=== PATIENT | female | born 1955 | race Caucasian/White ===

== ENCOUNTER → 2022-02-19 | Outpatient (CLI) | payer MEDICARE, OTHER ==
--- NOTE | 2022-02-19 19:58 | BD ---
EXAMINATION TYPE: Axial Bone Density DATE OF EXAM: 02/19/2022 COMPARISON: NONE CLINICAL HISTORY: 67 years year old Female. ICD-10 CODE: M85.88 DISRD BONE DENS Height: 63 Weight: 223.9 FRAX RISK QUESTIONS: Alcohol (3 or more units per day): NO Family History (Parent hip fracture): NO Glucocorticoids (More than 3mos): NO History of Fracture in Adulthood: FINGER Secondary Osteoporosis: 1. Type 1 Diabetes: NO 2. Hyperthyroidism: NO 3. Menopause before 45: YES 4. Malnutrition: NO 5. Chronic liver disease: NO Rheumatoid Arthritis: NO Current Tobacco Use: NO RISK FACTORS HISTORY OF: Hip Fracture (Right/Left): NO Spine Fracture: NO History of Wrist Fracture: NO Surgery to Spine/Hip(right/left)/Wrist (right/left): NO Family History of Osteoporosis: NO Active: NO Diet low in dairy products/other sources of calcium: YES Postmenopausal woman: YES Take estrogen and/or progesterone medications: NO Lost more than 2 inches in height since high school: NO Frequent falls: NO Poor Health: YES Hyperparathyroidism: NO Adrenal Insufficiency: NO MEDICATIONS: Prednisone or other steroids: NO Thyroid Medications: SYNTHROID How Long: PAST MONTH Osteoporosis Medications: NO Additional Medications: DIABETIC MEDS, VIT D EXAM MEASUREMENTS: Bone mineral densitometry was performed using the [email or web address] System. Bone mineral density as measured about the Lumbar spine is: ----- L1-L4(G/cm2): 1.361 T Score Values are as follows: ----- L1: 1.3 ----- L2: 1.2 ----- L3: 1.9 ----- L4: 1.5 ----- L1-L4: 1.5 BASELINE STUDY Bone mineral density about the R hip (g/cm2): 0.711 Bone mineral density about the L hip (g/cm2): 0.741 T Score values are as follows: -----R Neck: -2.3 -----L Neck: -2.1 -----R Total: -0.8 -----L Total: -0.1 BASELINE STUDY FRAX%s: The graph provided illustrates a 18.7% chance for a major osteoporotic fx and a 3.6% chance f or the hips probability for fx in 10 years time. IMPRESSION: Osteopenia (T Score between -2.5 and -1). There is slightly increased risk of fracture and the patient may be considered for treatment. Re-Screen 2-5 years. NOTE: T-SCORE=SD OF THE YOUNG ADULT MEAN.
--- NOTE | 2022-02-20 08:54 | MM ---
Reason for Exam: Screening (asymptomatic). Baseline mammogram. Patient History: Menarche at age 14. First Full-Term at age 22. Postmenopausal. Risk Values: Ariana 5 year model risk: 1.4%. NCI Lifetime model risk: 4.8%. Prior Study Comparison: Patient's first Mammogram. No prior studies available for comparison. Tissue Density: There are scattered fibroglandular densities. Findings: Analyzed By CAD. There are benign-appearing round and vascular calcifications bilaterally identified. There is no suspicious group of microcalcifications or suspicious mass in either breast. Overall Assessment: Benign, BI-RAD 2 Management: Screening Mammogram of both breasts in 1 year. A clinical breast exam by your physician is recommended on an annual basis and results should be correlated with mammographic findings. Electronically signed and approved by: Partha Sanchez M.D.
== END | disposition home or self-care (01) ==
LOC: RADMAMWWP 15:09
PROVIDERS: ATTEND Internal Medicine
DX: Z12.31 Encounter for screening mammogram for malignant neoplasm of breast (principal); M85.88 Other specified disorders of bone density and structure, other site; N95.1 Menopausal and female climacteric states
CPT/HCPCS: 77063; 77067; 77080

== ENCOUNTER 2022-03-09 10:34 | Day surgery (SDC) | payer MEDICARE, OTHER ==
[2022-03-07 15:19] VITALS: BMI 37.8
[~2022-03-09 10:34] MED LIST: LACTATED RINGERS 1,000 ML IV SCH; MOXIFLOXACIN HCL 0.5% DROPS 3 ML BTL OP PRN; TETRACAINE 0.5% OPHTH (PF) DROPS 4 ML BTL OP PRN; TIMOLOL 0.5% OPHTH DROPS 5 ML BTL OP PRN
[2022-03-09] MEDS: CYCLOPENTOLATE 1% OPHTH SOLN 2 ML BTL OP PRN ×3 (11:26→11:44)
[2022-03-09] MEDS: PHENYLEPHRINE 2.5% OPHTH DRP 2ML OP PRN ×3 (11:29→11:49)
[2022-03-09 11:34] VITALS: RESP 20; TEMP 97
[2022-03-09 11:50] LABS: Glucose,Whole Blood 94 mg/dL (70-110)
[2022-03-09] MEDS ORDERED: fentaNYL (PF) 50 MCG/ML 2 ML AMP ONE ×2 (12:34)
[2022-03-09] MEDS ORDERED: MIDAZOLAM 2 MG/2 ML VIAL ONE ×2 (12:34)
[2022-03-09] MEDS ORDERED: BALANCED SALT IRRIG SOLN COMB2 15 ML IRRIG.SOLN IRRIGATION ONE (12:35)
[2022-03-09] MEDS ORDERED: DUOVISC KIT (GREEN BOX) INTRAOCULA ONE (12:35)
[2022-03-09] MEDS ORDERED: EPINEPHrine (PF) 0.3 ML in BALANCED SALT IRRIG SOLN COMB2 500 ML IRRIGATION ONE (12:35)
[2022-03-09] MEDS ORDERED: LIDOCAINE 1% (PF) 10MG/ML VIAL MISCELLANE ONE (12:35)
--- NOTE | 2022-03-09 13:03 | P.OP ---
Date of Procedure: 03/09/22 Preoperative Diagnosis: NS & PSC Postoperative Diagnosis: same Procedure(s) Performed: PIOL< OD Implants: MX60E 21.00 Anesthesia: MAC Surgeon: David Street Pathology: none sent Condition: stable Disposition: same day Indications for Procedure: bluerry vision Operative Findings: no complications
[2022-03-09 13:25] VITALS: PULSE 56
[2022-03-09 13:37] VITALS: BP 190/88
--- NOTE | 2022-03-10 01:27 | OP ---
OPERATIVE REPORT PROCEDURES PERFORMED: Phacoemulsification of cataract and intraocular lens implant of the right eye. PREOPERATIVE DIAGNOSIS: Nuclear sclerosis and posterior subcapsular cataract. PREOPERATIVE DIAGNOSIS: Nuclear sclerosis and posterior subcapsular cataract. ESTIMATED BLOOD LOSS: Zero. SPECIMEN TAKEN: None. NARRATIVE: After obtaining the appropriate consent, the patient was brought to the operating room where the patient was placed under cardiac monitoring and prepped and draped in the usual sterile manner. At the 11 o'clock position, a 15-degree super sharp blade was used to create a paracentesis followed by instillation of 1% Xylocaine MPF 50:50 mix with BSS into the anterior chamber. This was followed by Duovisc viscoelastic to stabilize the anterior chamber. At the 9 o'clock position a self-sealing corneal flap incision was created using 2.8 mm wilbur keratome. A cystotome was used to initiate a continuous tear capsulorrhexis which was completed with the Utrata forceps. A Binkhorst cannula was used to hydrodissect the lens nucleus followed by hydrodelineation. Phacoemulsification of the lens was performed utilizing phacochop in 33.91 seconds at 21% power. The remaining cortical material was removed using the irrigation aspiration mode followed by additional 1% Xylocaine MPF into the anterior chamber followed by viscoelastic to stabilize the capsular bag. A Bausch and Lomb MX60E 21.0 diopters posterior chamber lens was placed into the capsular bag without difficulty. The remaining viscoelastic material was removed from the anterior chamber with the irrigation/aspiration. Balanced salt solution was used to normalize the intraocular pressure. The incision was checked for watertight integrity. The patient then received 2 drops of 0.5% timolol followed by 2 drops Vigamox, was lightly patched and shielded in the usual manner. There were no complications from the procedure. The patient tolerated the procedure well and was returned to recovery in good condition. MMODL / IJN: [id number] /
== END 2022-03-09 13:53 | disposition home or self-care (01) ==
LOC: OR 10:34
PROVIDERS: ATTEND Ophthalmology
DX: H25.11 Age-related nuclear cataract, right eye (principal); E11.9 Type 2 diabetes mellitus without complications; E07.9 Disorder of thyroid, unspecified; Z79.899 Other long term (current) drug therapy; Z79.84 Long term (current) use of oral hypoglycemic drugs; Z79.890 Hormone replacement therapy
CPT/HCPCS: 66984; C1780; J2250; J0171; J3010; J2001

== ENCOUNTER 2022-04-04 06:08 | Day surgery (SDC) | payer MEDICARE, OTHER ==
[~2022-04-04 06:08] MED LIST changes: -LACTATED RINGERS 1,000 ML IV SCH
[2022-04-04] MEDS ORDERED: LACTATED RINGERS 1,000 ML IV SCH (06:15)
[2022-04-04] MEDS ORDERED: LIDOCAINE 1% (10MG/ML) FOR IV START INTRADERMA PRN (06:15)
[2022-04-04] MEDS: CYCLOPENTOLATE 1% OPHTH SOLN 2 ML BTL OP PRN ×3 (06:47→06:59)
[2022-04-04] MEDS: PHENYLEPHRINE 2.5% OPHTH DRP 2ML OP PRN ×3 (06:50→07:02)
[2022-04-04 07:04] VITALS: RESP 16; TEMP 97.8
[2022-04-04 07:04] LABS: Glucose,Whole Blood 95 mg/dL (70-110)
[2022-04-04] MEDS ORDERED: MIDAZOLAM 2 MG/2 ML VIAL ONE (07:24)
[2022-04-04] MEDS ORDERED: fentaNYL (PF) 50 MCG/ML 2 ML AMP ONE (07:24)
[2022-04-04] MEDS ORDERED: EPINEPHrine (PF) 0.3 ML in BALANCED SALT IRRIG SOLN COMB2 500 ML IRRIGATION ONE (07:44)
[2022-04-04] MEDS ORDERED: BALANCED SALT IRRIG SOLN COMB2 15 ML IRRIG.SOLN INTRAOCULA ONE (07:50)
[2022-04-04] MEDS ORDERED: DUOVISC KIT (GREEN BOX) INTRAOCULA ONE (07:50)
[2022-04-04] MEDS ORDERED: LIDOCAINE 1% (PF) 10MG/ML VIAL MISCELLANE ONE (07:51)
--- NOTE | 2022-04-04 07:56 | P.OP ---
Date of Procedure: 04/04/22 Preoperative Diagnosis: NS & PSC Postoperative Diagnosis: ish Procedure(s) Performed: PIOL< OS Implants: MX60E 21.50 Anesthesia: MAC Surgeon: David Street Pathology: none sent Condition: stable Disposition: same day Indications for Procedure: blurry vision Operative Findings: no complications
[2022-04-04 08:20] VITALS: BP 156/74; PULSE 65
--- NOTE | 2022-04-05 09:38 | OP ---
OPERATIVE REPORT PROCEDURES PERFORMED: Phacoemulsification of cataract and intraocular lens implant of the left eye. PREOPERATIVE DIAGNOSES: Nuclear sclerosis and posterior subcapsular cataract. POSTOPERATIVE DIAGNOSES: Nuclear sclerosis and posterior subcapsular cataract. ESTIMATED BLOOD LOSS: Zero. SPECIMEN TAKEN: None. NARRATIVE: After obtaining the appropriate consent, the patient was brought to the operating room where the patient was placed under cardiac monitoring and prepped and draped in the usual sterile manner. At the 5 o'clock position, a 15-degree super sharp blade was used to create a paracentesis followed by instillation of 1% Xylocaine MPF 50:50 mix with BSS into the anterior chamber. This was followed by DuoVisc viscoelastic to stabilize the anterior chamber. At the 3 o'clock position a self-sealing corneal flap incision was created using 2.8 mm wilbur keratome. A cystotome was used to initiate a continuous tear capsulorrhexis which was completed with the Utrata forceps. A Binkhorst cannula was used to hydrodissect the lens nucleus followed by hydrodelineation. Phacoemulsification of the lens was performed utilizing phacochop in 32.84 seconds at 30% power. The remaining cortical material was removed using the irrigation aspiration mode followed by additional 1% Xylocaine MPF into the anterior chamber followed by viscoelastic to stabilize the capsular bag. A Bausch and Lomb MX60E 21.5 diopter posterior chamber lens was placed into the capsular bag without difficulty. The remaining viscoelastic material was removed from the anterior chamber with the irrigation/aspiration. Balanced salt solution was used to normalize the intraocular pressure. The incision was checked for watertight integrity. The patient then received 2 drops of 0.5% timolol followed by 2 drops Vigamox, was lightly patched and shielded in the usual manner. There were no complications from the procedure. The patient tolerated the procedure well and was returned to recovery in good condition. MMODL / IJN: [id number] /
== END 2022-04-04 08:38 | disposition home or self-care (01) ==
LOC: OR 06:08
PROVIDERS: ATTEND Ophthalmology
DX: H25.12 Age-related nuclear cataract, left eye (principal); H25.042 Posterior subcapsular polar age-related cataract, left eye; E11.9 Type 2 diabetes mellitus without complications; E07.9 Disorder of thyroid, unspecified; Z79.890 Hormone replacement therapy; Z79.84 Long term (current) use of oral hypoglycemic drugs
CPT/HCPCS: 66984; C1780; J2250; J0171; J3010; J2001

== ENCOUNTER → 2022-12-17 | Outpatient (CLI) | payer MEDICARE, OTHER ==
--- NOTE | 2022-12-17 23:08 | MR ---
EXAMINATION TYPE: MR brain wo/w con DATE OF EXAM: 12/17/2022 COMPARISON: NONE HISTORY: Memory loss, headaches TECHNIQUE: Multiplanar, multisequence images of the brain and brainstem is performed without and with IV contras t, utilizing 10 mL intravenous Gadavist . FINDINGS: Diffusion weighted images demonstrate no evidence of a recent infarct or other diffusion ab normality. There is mild to moderate ventricular and sulcal prominence. There are scattered foci of T2 hyperintensity seen throughout the superficial, deep, and periventricular white matter bilaterally . Approximately 30-40 scattered lesions are seen. Lesions are nonspecific in appearance and distribut ion. Midline structures demonstrate normal morphology. The craniocervical junction appears within normal limits. Post contrast images demonstrate no abnormal enhancement. The dural venous sinuses appear pa tent. Mild mucosal thickening involving ethmoid sinuses bilaterally. Bilateral aphakia is present. IMPRESSION: Mild to moderate diffuse cerebral atrophy and moderate nonspecific white matter changes p resumed on the basis of product of chronic small vessel ischemic change. No abnormal enhancement is s een.
== END | disposition home or self-care (01) ==
LOC: RADMRIMAIN 21:15
PROVIDERS: ATTEND Internal Medicine
DX: G31.9 Degenerative disease of nervous system, unspecified (principal); R90.82 White matter disease, unspecified; R51.9 Headache, unspecified; R41.3 Other amnesia
CPT/HCPCS: 70553; A9585

== ENCOUNTER 2024-05-18 12:16 | Inpatient (IN) | payer OTHER ==
--- NOTE | 2024-05-18 13:02 | ED ---
General Adult HPI - General Chief complaint: Fall Stated complaint: Fall Time Seen by Provider: 05/18/24 12:28 Source: EMS Mode of arrival: EMS Limitations: altered mental status - History of Present Illness Initial comments: Dictation was produced using [employer] dictation software. please excuse any grammatical, word or spelling errors. Chief Complaint: 69-year-old female with weakness and fall History of Present Illness: Patient 69-year-old female she fell last night will could not get up. [employer] tried to contact her and when they were having trouble they contacted patient's daughter. Other family member went to check on the patient she was found on the ground. Patient states that she got up in the middle the night to use the bathroom and was too weak to get up. Patient was on the ground for several hours on carpeted floor. Complains of left foot pain. Denies any other complaints. Patient has not taken anticoagulation medications. Denies any head or neck injury. The ROS documented in this emergency department record has been reviewed and confirmed by me. Those systems with pertinent positive or negative responses have been documented in the HPI. All other systems are other negative and/or noncontributory. - Related Data Allergies Allergy/AdvReac Type Severity Reaction Status Date / Time No Known Allergies Allergy Verified 04/04/22 07:05 Review of Systems ROS Statement: Those systems with pertinent positive or pertinent negative responses have been documented in the HPI. ROS Other: All systems not noted in ROS Statement are negative. Past Medical History Past Medical History: Diabetes Mellitus, Eye Disorder, Thyroid Disorder History of Any Multi-Drug Resistant Organisms: None Reported Additional Past Surgical History / Comment(s): rt eye catartact removal Past Anesthesia/Blood Transfusion Reactions: No Reported Reaction Past Psychological History: No Psychological Hx Reported Smoking Status: Never smoker General Exam - General Exam Comments Initial Comments: PHYSICAL EXAM: General Impression: Alert and oriented x3, not in acute distress HEENT: Normocephalic atraumatic, extra-ocular movements intact, pupils equal and reactive to light bilaterally, mucous membranes moist. Cardiovascular: Heart regular rate and rhythm Chest: Able to complete full sentences, no retractions, no tachypnea Abdomen: abdomen soft, non-tender, non-distended, no organomegaly Musculoskeletal: Pulses present and equal in all extremities, no peripheral e steve Motor: no focal deficits noted Neurological: CN II-XII grossly intact, no focal motor or sensory deficits noted Skin: Intact with no visualized rashes Psych: Normal affect and mood Limitations: altered mental status Course Vital Signs 05/18/24 05/18/24 05/18/24 12:19 14:23 15:25 Temperature 99 F 98.2 F Pulse Rate 70 70 78 Respiratory 16 16 16 Rate Blood Pressure 188/66 158/73 106/64 O2 Sat by Pulse 98 98 93 L Oximetry EKG Findings - EKG Comments: EKG Findings:: My EKG interpretation: Ventricular rate 71, sinus rhythm,. 186, QRS 84, QTc 435. No KS prolongation, no QTC prolongation, no ST or T-wave changes noted. Overall, this EKG is unremarkable Medical Decision Making - Medical Decision Making Was pt. sent in by a medical professional or institution (, PA, [employer], urgent care, hospital, or snf...) When possible be specific @ -No Did you speak to anyone other than the patient for history (EMS, parent, family, police, friend...)? What history was obtained from this source @ -No Did you review nursing and triage notes (agree or disagree)? Why? @ -I reviewed and agree with nursing and triage notes Were old charts reviewed (outside hosp., previous admission, EMS record, old EKG, old radiological studies, urgent care reports/EKG's, snf records)? Report findings @ -No old charts were reviewed Differential Diagnosis (chest pain, altered mental status, abdominal pain women, abdominal pain men, vaginal bleeding, musculoskeletal, weakness, fever, dyspnea, syncope, headache, dizziness, GI bleed, back pain, seizure, CVA, palpatations, mental health)? @ -Differential Weakness: Hypoglycemia, shock, sepsis, hyponatremia, anemia, infection, MD, ETOH, adverse medicine reaction, overdose, stroke, this is not meant to be an all-inclusive l ist. EKG interpreted by me (3pts min.). @ -See above X-rays interpreted by me (1pt min.). @ -Pelvis x-ray, knee x-ray, foot x-ray and chest x-ray shows no acute processes CT interpreted by me (1pt min.). @ -CT brain and C-spine shows no acute processes U/S interpreted by me (1pt. min.). @ -None done What testing was considered but not performed or refused? (CT, X-rays, U/S, labs)? Why? @ -None What meds were considered but not given or refused? Why? @ -None Was smoking cessation discussed for >3mins.? @ -No Were there social determinants of health that impacted care today? How? (Homele ssness, low income, unemployed, alcoholism, drug addiction, transportation, low edu. Level, literacy, decrease access to med. care, halfway, rehab)? @ -No Was there de-escalation of care discussed even if they declined (Discuss DNR or withdrawal of care, Hospice)? DNR status @ -No What co-morbidities impacted this encounter? (DM, HTN, Smoking, COPD, CAD, Cancer, CVA, ARF, Chemo, Hep., AIDS, mental health diagnosis, sleep apnea, morbid obesity)? @ -Dementia Was patient admitted / discharged? Hospital course, mention meds given and route, prescriptions, significant lab abnormalities, going to OR and other pertinent info. @ -69-year-old female presents to the emergency department with fall and weakness. Vital signs upon arrival are within acceptable limits. Imaging studies are negative. Laboratory evaluation obtained. Patient has nitrite positive UTI. Given patient poor social situation lives on her own without significant assistance family request hospital admission for inpatient t reatment. Patient given ceftriaxone Case discussed with hospitalist for admission Did you discuss the management of the patient with other professionals (professionals i.e. , PA, [employer], lab, RT, psych nurse, social media marketing analyst, administrative support associate, teacher, banking services officer, field nurse case manager)? Give summary @ -Case discussed with hospitalist for admission Was critical care preformed (if so, how long)? @ -No Undiagnosed new problem with uncertain prognosis? @ -No Drug Therapy requiring intensive monitoring for toxicity (Heparin, Nitro, Insulin, Cardizem)? @ -No Were any procedures done? @ -No Diagnosis/symptom? Acute, or Chronic, or Acute on Chronic? Uncomplicated (without systemic symptoms) or Complicated (systemic symptoms)? @ -Acute UTI complicated by generalized weakness Side effects of treatment? @ -No Exacerbation, Progression, or Severe Exacerbation? @ -No Poses a threat to life or bodily function? How? (Chest pain, USA, MD, pneumonia, PE, COPD, DKA, ARF, appy, cholecystitis, CVA, Diverticulitis, Homicidal, Suicidal, threat to staff... and all critical care pts) @ -Yes - Lab Data Result diagrams: 05/18/24 13:08 05/18/24 13:08 Lab Results 05/18/24 05/18/24 05/18/24 Range/Units 13:08 13:08 13:27 WBC 13.6 H (3.8-10.6) k/uL RBC 4.68 (3.80-5.40) m/uL Hgb 12.9 (11.4-16.0) gm/dL Hct 41.4 (34.0-46.0) % MCV 88.5 (80.0-100.0) fL MCH 27.6 (25.0-35.0) pg MCHC 31.2 (31.0-37.0) g/dL RDW 13.5 (11.5-15.5) % Plt Count 335 (150-450) k/uL MPV 7.9 Neutrophils % 82 % Lymphocytes % 11 % Monocytes % 6 % Eosinophils % 1 % Basophils % 0 % Neutrophils # 11.1 H (1.3-7.7) k/uL Lymphocytes # 1.5 (1.0-4.8) k/uL Monocytes # 0.8 (0-1.0) k/uL Eosinophils # 0.1 (0-0.7) k/uL Basophils # 0.0 (0-0.2) k/uL Sodium 141 (137-145) mmol/L Potassium 5.4 H (3.5-5.1) mmol/L Chloride 108 H (98-107) mmol/L Carbon Dioxide 22 (22-30) mmol/L Anion Gap 11 mmol/L BUN 25 H (7-17) mg/dL Creatinine 1.25 H (0.52-1.04) mg/dL Est GFR (CKD-EPI)AfAm 51 (>60 ml/min/1.73 sqM) Est GFR (CKD-EPI)NonAf 44 (>60 ml/min/1.73 sqM) Glucose 110 H (74-99) mg/dL Calcium 9.9 (8.4-10.2) mg/dL Total Bilirubin 1.2 (0.2-1.3) mg/dL AST 46 H (14-36) U/L ALT 11 (4-34) U/L Alkaline Phosphatase 74 (38-126) U/L Creatine Kinase 524 H (30-135) U/L Total Protein 8.1 (6.3-8.2) g/dL Albumin 4.2 (3.5-5.0) g/dL Urine Color Yellow Urine Appearance Cloudy H (Clear) Urine pH 5.5 (5.0-8.0) Ur Specific Baldwin 1.018 (1.001-1.035) Urine Protein 1+ H (Negative) Urine Glucose (UA) Negative (Negative) Urine Ketones Negative (Negative) Urine Blood Small H (Negative) Urine Nitrite Positive H (Negative) Urine Bilirubin Negative (Negative) Urine Urobilinogen <2.0 (<2.0) mg/dL Ur Leukocyte Esterase Large H (Negative) Urine RBC 8 H (0-5) /hpf Urine WBC 132 H (0-5) /hpf Urine WBC Clumps Moderate H (None) /hpf Ur Squamous Epith Cells 3 (0-4) /hpf Amorphous Sediment Rare H (None) /hpf Urine Bacteria Many H (None) /hpf Fatty Casts 2 (0) /lpf Urine Mucus Occasional H (None) /hpf Disposition Clinical Impression: Urinary tract infection Disposition: ADMITTED IP TO THIS HOSP Condition: Fair Referrals: Chaz Amador MD [Primary Care Provider] - 1-2 days Decision Time: 15:19
[2024-05-18 13:15] LABS: Basophils % (A) 0 %; Eosinophils # (A) 0.1 k/uL (0-0.7); Eosinophils % (A) 1 %; HCT 41.4 % (34.0-46.0); HGB 12.9 gm/dL (11.4-16.0); Lymphocytes # (A) 1.5 k/uL (1.0-4.8); Lymphocytes % (A) 11 %; MCH 27.6 pg (25.0-35.0); MCHC 31.2 g/dL (31.0-37.0); MCV 88.5 fL (80.0-100.0); Mean Platelet Volume 7.9; Monocytes # (A) 0.8 k/uL (0-1.0); Monocytes % (A) 6 %; Neutrophils # (A) 11.1 k/uL (1.3-7.7); Neutrophils % (A) 82 %; Platelet Count 335 k/uL (150-450); RBC 4.68 m/uL (3.80-5.40); RDW 13.5 % (11.5-15.5); WBC 13.6 k/uL (3.8-10.6)
[2024-05-18 13:36] LABS: ALT 11 U/L (4-34); African American GFR (CKD) 51 (>60 ml/min/1.73 sqM); Anion Gap 11 mmol/L; Blood Urea Nitrogen 25 mg/dL (7-17); Calcium 9.9 mg/dL (8.4-10.2); Carbon Dioxide 22 mmol/L (22-30); Chloride 108 mmol/L (98-107); Creatine Kinase 524 U/L (30-135); Glucose 110 mg/dL (74-99); Non-African American GFR(CKD) 44 (>60 ml/min/1.73 sqM); Sodium 141 mmol/L (137-145); Total Bilirubin 1.2 mg/dL (0.2-1.3)
[2024-05-18 13:44] LABS: Amorphous Sediment,Urine Rare /hpf; Appearance,Urine Cloudy (Clear); Bacteria,Urine Many /hpf; Bilirubin,Urine Negative (Negative); Blood,Urine Small (Negative); Color,Urine Yellow; Fatty Casts,Urine 2 /lpf (0); Glucose,Urine (UA) Negative (Negative); Ketones,Urine Negative (Negative); Leukocyte Esterase,Urine Large (Negative); Mucus,Urine Occasional /hpf; Nitrite,Urine Positive (Negative); PH, Urine 5.5 (5.0-8.0); Protein,Urine 1+ (Negative); RBC,Urine 8 /hpf (0-5); Specific Gravity,Urine 1.018 (1.001-1.035); Squamous Epithelial Cell,Urine 3 /hpf (0-4); Urobilinogen,Urine <2.0 mg/dL (<2.0); WBC,Urine 132 /hpf (0-5)
[2024-05-18 13:45] LABS: AST 46 U/L (14-36); Albumin 4.2 g/dL (3.5-5.0); Alkaline Phosphatase 74 U/L (38-126); Potassium 5.4 mmol/L (3.5-5.1); Total Protein 8.1 g/dL (6.3-8.2)
[2024-05-18] MEDS: cefTRIAXone IN SWFI 1,000 MG/10 ML SYRINGE IVP STA (15:04)
[2024-05-18] MEDS: MORPHINE SULFATE 4 MG/ML SYRINGE IV STA (15:08)
--- NOTE | 2024-05-18 15:12 | XR ---
EXAMINATION TYPE: XR chest 2V, XR knee 4V RT, XR pelvis AP view, XR foot complete 3 views LT DATE OF EXAM: 05/18/2024 2:54 PM COMPARISON: None CLINICAL INDICATION: Female, 69 years old with pain after history of fall, , FINDINGS: Chest: Are normal size. Aorta and pulmonary vasculature within normal limits. Hazy lung densities likely due to portable technique and body habitus. Lateral view shows no rosa maria consolidation or pleural effusio n. Pelvis: Limited by osteopenia and body habitus. There is mild degenerative spurring of both hips. Possible si milar subtle irregularity of the arcuate lines of the right side of the sacrum. Otherwise, no acute f racture, subluxation, or dislocation seen. Right knee: Tricompartmental degenerative spurring. Extensor mechanism appears intact. Joint space narrowing medi al compartment. Suggestion of some bony remodeling compartment as well. No displaced fracture. Left foot: Mild degenerative change first MTP joint. Mild hallux valgus and mild bunion formation. Type I versus type II accessory navicular noted. Vascular calcifications. Small plantar heel spur. IMPRESSION: 1. Chest: Technical limitations. No definite acute process. 2. Pelvis: Mild bilateral hip OA. Possible very subtle step-off along an arcuate line of the right si de of the sacrum. An underlying sacral insufficiency fracture is difficult to entirely exclude. Corre late for any localizing pain. 3. Right knee: Tricompartment osteoarthrosis, suspect moderate to severe in the medial compartment. N o acute osseous abnormality seen. 4. Left foot: Mild hallux valgus with bunion. Plantar heel spurs. No acute osseous abnormality seen. [facility], Workstation: [employer] Del[facility] Surgical[facility], 05/18/2024 3:09 PM
--- NOTE | 2024-05-18 15:34 | CT ---
EXAMINATION TYPE: CT brain cspine wo con DATE OF EXAM: 05/18/2024 3:00 PM COMPARISON: None. CLINICAL INDICATION: Female, 69 years old with history of fall, PAIN AFTER FALL, pain TECHNIQUE: CT of the brain is performed utilizing 3 mm thick sections through the posterior fossa and 3 mm thick sections through the remaining calvarium. Study is performed within 24 hours of arrival to the hospital. Contrast used: mL of , (none if empty) CT DLP: 1384.5 mGycm, Automated exposure control for dose reduction was used. FINDINGS: No abnormal hyperdensity is present to suggest an acute intracranial hemorrhage. No mass lesion is evident. Physiologic right basal ganglion calcifications present. No acute infarcts are evident. Mild periventricular white matter hypodensity is present, likely on t he basis of chronic white matter ischemic changes. Ventricles and sulci are appropriate for the patient age. No acute fractures are evident. Paranasal sinuses and mastoid air cells within the [id number] are clear. IMPRESSIONS: 1. No acute intracranial process. Follow-up MRI can be performed as clinically indicated. CT cervical spine. COMPARISON: None TECHNIQUE: CT of the cervical spine is performed in the axial plane at 2 mm thick sections. Reconstr ucted images in the coronal, and sagittal plane are reviewed on the computer. FINDINGS: No acute fractures are evident. Vertebral body alignment is normal. Degenerative disc changes are present throughout cervical spine. Spondylosis is present. Vertebral body heights are preserved. No spinal canal stenosis is evident. Some foraminal narrowing from uncovertebral joint hypertrophy is present at C6-7. Some left C5-6 fora linda narrowing is present. Moderate left C4-5 foraminal stenosis is present. Mild left C3-4 foramina l narrowing is present IMPRESSION: 1. No acute osseous abnormality cervical spine. 2. Chronic appearing degenerative disc changes throughout the cervical spine. 3. Mild foraminal narrowing within the cervical spine, greater on the left. The most severe appears t o be moderate at the left C4-5 foramen. [facility], , 05/18/2024 3:32 PM
[2024-05-18] MEDS ORDERED: NALOXONE 0.4 MG/ML 1 ML VIAL IV PRN (15:35)
[2024-05-18] MEDS: SODIUM CHLORIDE 0.9% 1,000 ML IV SCH (15:52)
--- NOTE | 2024-05-18 18:33 | P.HPIM ---
History of Present Illness H&P Date: 05/18/24 History of present illness; Patient is a 69-year-old female with a past medical history significant for diabetes mellitus, thyroid disorder. She presented to the emergency department after falling at home. She states that she has frequent falls, with the most recent one being last night which brought her to the emergency department today. She states that she was in her apartment and attempting to clean her apartment, at that time she states that she lost her footing and fell on her left side. She states that she did not hit her head, however she does attest to having felt some dizziness prior to falling. She was found on the ground by her son-in-law, and she is unsure of how long she was on the ground for but believes it to be at least 2 hours stating that she was too weak to get herself up. She has no acute pain anywhere on her body, however notes some generalized soreness in her lower extremities and her right shoulder. She lives alone and states that she is able to handle most activities of daily living by herself. She states that she has not taken any anticoagulation medications. Labratory review: -WBCs 13.6; sodium 141, potassium 5.4, chloride 108, BUN 25, creatinine 1.25, creatinine kinase of 524 -Urinalysis was cloudy in appearance with 1+ protein, small amount of blood, positive nitrites, large amount leukocyte esterase -Respiratory viral panel all negative Imaging: -Chest x-ray showed no definite acute process -Pelvic x-ray showed mild bilateral hip osteoarthritis with a possible very subtle step-off along the arcuate line of the right side of the sacrum; underlying sacral insufficiency fracture is difficult to entirely exclude -Right knee x-ray showed tricompartment osteoarthritis without acute osseous abnormality -Left foot x-ray showed no acute osseous abnormality -CT of the head and cervical spine showed no acute intracranial process and no acute osseous abnormality of the cervical spine Vitals: Blood pressure 168/62, heart rate 70, respiratory rate 16, SpO2 98% on room air Patient admitted to internal medicine service REVIEW OF SYSTEMS: CONSTITUTIONAL: No fever, no malaise, no fatigue. HEENT: No recent visual problems or hearing problems. Denied any sore throat. CARDIOVASCULAR: No chest pain, orthopnea, PND, no palpitations, no syncope. PULMONARY: No shortness of breath, no cough, no hemoptysis. GASTROINTESTINAL: No diarrhea, no nausea, no vomiting, no abdominal pain. NEUROLOGICAL: No headaches, no weakness, no numbness. HEMATOLOGICAL: Denies any bleeding or petechiae. GENITOURINARY: Denies any burning micturition, frequency, or urgency. MUSCULOSKELETAL/RHEUMATOLOGICAL: Denies any joint pain, swelling, or any muscle pain. ENDOCRINE: Denies any polyuria or polydipsia. The rest of the 14-point review of systems is negative. PHYSICAL EXAMINATION: GENERAL: The patient is alert and oriented x3, with circumstantial speech HEENT: Pupils are round and equally reacting to light. EOMI. No scleral icterus. No conjunctival pallor. CARDIOVASCULAR: S1 and S2 present. No murmurs, rubs, or gallops. PULMONARY: Chest is clear to auscultation, no wheezing or crackles. ABDOMEN: Soft, nontender, nondistended, normoactive bowel sounds. No palpable organomegaly. Suprapubic tenderness to palpations. MUSCULOSKELETAL: No joint swelling or deformity. EXTREMITIES: No cyanosis, clubbing, or pedal edema. NEUROLOGICAL: Gross neurological examination did not reveal any focal deficits. SKIN: No rashes. Assessment and plan 69-year-old female with PMH of diabetes mellitus, thyroid disorder. Presents emergency department following a fall at home in which she notes to having some dizziness prior to falling. #Syncopy v Mechanical fall #Debility -Echocardiogram pending -Orthostatics pending -Cardiac monitoring -On Aricept, monitor for bradycardic episodes - if occurring, consider D/C #Complicated urinary tract infection -WBC 13.6 with associated tenderness of the bladder -Urinalysis positive with nitrites and leukocyte Estrace -Urine culture pending -Patient will continue with Rocephin 1 g IVPB every 24 hours -Initiate NS 75 cc/h -Monitor CBC, BMP Chronic conditions: #Dementia - continue home medications #Hypothyroidism - Continue home medications GI prophylaxis: Not indicated DVT prophylaxis: Lovenox 40 mg subcu daily Dictation was produced using [employer] dictation software. please excuse any grammatical, word or spelling errors. I saw and evaluated the patient during the wise and critical portions of this encounter, and discussed the case in detail with the resident author of this note, I agree with the Assessment and Plan, and my changes, if any, are highlighted in blue. Past Medical History Past Medical History: Diabetes Mellitus, Eye Disorder, Thyroid Disorder History of Any Multi-Drug Resistant Organisms: None Reported Additional Past Surgical History / Comment(s): rt eye catartact removal Past Anesthesia/Blood Transfusion Reactions: No Reported Reaction Past Psychological History: No Psychological Hx Reported Smoking Status: Never smoker Medications and Allergies Home Medications Medication Instructions Recorded Confirmed Type ARIPiprazole [Abilify] 2 mg PO DAILY 05/18/24 05/18/24 History Donepezil [Aricept] 10 mg PO HS 05/18/24 05/18/24 History Ergocalciferol (Vitamin D2) 1,250 mcg PO Q7D 05/18/24 05/18/24 History [Drisdol (50,000 Iu)] Levothyroxine Sodium [Synthroid] 25 mcg PO DAILY 05/18/24 05/18/24 History Mirtazapine [Remeron] 15 mg PO HS 05/18/24 05/18/24 History Triamcinolone 0.1% Ointment 1 applic TOPICAL TID 05/18/24 05/18/24 History [Kenalog 0.1% Ointment] lisinopriL [Zestril] 20 mg PO DAILY 05/18/24 05/18/24 History metFORMIN HCL [Glucophage] 500 mg PO BID 05/18/24 05/18/24 History ondansetron HCL [Ondansetron HCl] 8 mg PO TID PRN 05/18/24 05/18/24 History Allergies Allergy/AdvReac Type Severity Reaction Status Date / Time No Known Allergies Allergy Verified 05/18/24 16:16 Physical Exam Osteopathic Statement: *. No significant issues noted on an osteopathic structural exam other than those noted in the History and Physical/Consult. Vitals: Vital Signs Temp Pulse Resp BP Pulse Ox 05/18/24 17:00 79 16 168/62 98 05/18/24 15:25 98.2 F 78 16 106/64 96 05/18/24 14:23 70 16 158/73 98 05/18/24 12:19 99 F 70 16 188/66 98 Intake and Output 05/18/24 05/18/24 05/18/24 06:59 14:59 22:59 Other: Weight 97.522 kg Results CBC & Chem 7: 05/18/24 13:08 05/18/24 13:08 Labs: Abnormal Lab Results - Last 24 Hours (Table) 05/18/24 05/18/24 05/18/24 Range/Units 13:08 13:08 13:27 WBC 13.6 H (3.8-10.6) k/uL Neutrophils # 11.1 H (1.3-7.7) k/uL Potassium 5.4 H (3.5-5.1) mmol/L Chloride 108 H (98-107) mmol/L BUN 25 H (7-17) mg/dL Creatinine 1.25 H (0.52-1.04) mg/dL Glucose 110 H (74-99) mg/dL AST 46 H (14-36) U/L Creatine Kinase 524 H (30-135) U/L Urine Appearance Cloudy H (Clear) Urine Protein 1+ H (Negative) Urine Blood Small H (Negative) Urine Nitrite Positive H (Negative) Ur Leukocyte Esterase Large H (Negative) Urine RBC 8 H (0-5) /hpf Urine WBC 132 H (0-5) /hpf Urine WBC Clumps Moderate H (None) /hpf Amorphous Sediment Rare H (None) /hpf Urine Bacteria Many H (None) /hpf Urine Mucus Occasional H (None) /hpf
[2024-05-18] MEDS: DONEPEZIL 10 MG TAB PO SCH (20:23)
[2024-05-18] MEDS: MIRTAZAPINE 15 MG TAB PO SCH (20:24)
[2024-05-19] MEDS: LEVOTHYROXINE 25 MCG TAB PO SCH (06:41)
[2024-05-19] MEDS ORDERED: cefTRIAXone IN SWFI 1,000 MG/10 ML SYRINGE IVP SCH (09:00)
[2024-05-19 10:29] LABS: Basophils % (A) 0 %; Eosinophils # (A) 0.2 k/uL (0-0.7); Eosinophils % (A) 2 %; HCT 40.5 % (34.0-46.0); HGB 12.8 gm/dL (11.4-16.0); Hypochromasia Slight; Lymphocytes # (A) 2.2 k/uL (1.0-4.8); Lymphocytes % (A) 19 %; MCH 28.3 pg (25.0-35.0); MCHC 31.7 g/dL (31.0-37.0); MCV 89.3 fL (80.0-100.0); Mean Platelet Volume 7.5; Monocytes # (A) 0.7 k/uL (0-1.0); Monocytes % (A) 6 %; Neutrophils # (A) 8.1 k/uL (1.3-7.7); Neutrophils % (A) 72 %; Platelet Count 273 k/uL (150-450); RBC 4.54 m/uL (3.80-5.40); RDW 13.7 % (11.5-15.5); WBC 11.3 k/uL (3.8-10.6)
[2024-05-19 11:07] LABS: Glucose,Whole Blood 121 mg/dL (70-110)
[2024-05-19] MEDS: lisinopriL 20 MG TAB PO SCH (11:19)
[2024-05-19] MEDS: ARIPiprazole 2 MG TAB PO SCH (11:19)
--- NOTE | 2024-05-19 11:19 | CT ---
EXAMINATION TYPE: CT brain wo con for TPA DATE OF EXAM: 05/19/2024 11:11 AM COMPARISON: 05/18/2024 CLINICAL INDICATION: Female, 69 years old with history of Headache, rt side weakness, TECHNIQUE: Examination was done in axial plane without intravenous contrast. Coronal and sagittal r econstructions performed. CT DLP: 1100.1 mGycm, Automated exposure control for dose reduction was used. FINDINGS: There is no evidence of acute intracranial hemorrhage, acute ischemic changes, mass, mass-effect, or extra-axial fluid collection. There is no effacement of cerebral sulci or basal subarachnoid cister ns. There is unchanged mild ventricular prominence, interstitial calculated at 0.37. Some scattered mild to moderate patchy white matter hypodensities are unchanged. Benign basal ganglionic calcifications. There is no midline shift. Cage-white matter distinction is preserved. Atherosclerotic calcifications in the carotid siphons. 8 mm mucosal retention cyst or polyp along the anterior floor of the left maxillary sinus. Slight rig htward nasal septal deviation. Mastoid air cells are well pneumatized. The globes are intact. IMPRESSION: 1. Similar mild ventriculomegaly likely due to central cerebral atrophy. Correlate with symptoms to e xclude a component of NPH. 2. [id number] patchy border of chronic small vessel ischemic disease. No acute intracranial abn ormality seen. 3. If symptoms persist, consider MRI. [facility], , 05/19/2024 11:17 AM
[2024-05-19 11:25] LABS: ALT 11 U/L (4-34); AST 44 U/L (14-36); African American GFR (CKD) 37 (>60 ml/min/1.73 sqM); Albumin 3.9 g/dL (3.5-5.0); Alkaline Phosphatase 86 U/L (38-126); Anion Gap 11 mmol/L; Blood Urea Nitrogen 26 mg/dL (7-17); Calcium 9.7 mg/dL (8.4-10.2); Carbon Dioxide 25 mmol/L (22-30); Chloride 105 mmol/L (98-107); Glucose 113 mg/dL (74-99); Non-African American GFR(CKD) 32 (>60 ml/min/1.73 sqM); Potassium 4.3 mmol/L (3.5-5.1); Sodium 141 mmol/L (137-145); Total Protein 7.5 g/dL (6.3-8.2)
--- NOTE | 2024-05-19 11:44 | CT ---
EXAMINATION TYPE: CODE STROKE: CTA head neck DATE OF EXAM: 05/19/2024 11:39 AM COMPARISON: CT brain same day CLINICAL INDICATION: Female, 69 years old with history of new right sided weakness, rt side weakness, TECHNIQUE: Contiguous axial scanning of the head and neck performed with IV Contrast, patient injecte d with 65ml mL of Isovue 370. Coronal and sagittal reconstructions performed. 3-D reconstructions gen erated on a dedicated independent workstation. CT DLP: 708.4 mGycm, Automated exposure control for dose reduction was used. FINDINGS: Neck: There is very direct takeoff of the left vertebral artery directly from the aortic arch. Slightly dom inant right vertebral artery. Otherwise, both vertebral arteries are patent throughout the course. Right common carotid artery is patent. Atherosclerotic calcifications at the proximal right carotid bulb contributes to a moderate, 65% prox imal ICA stenosis. Remainder of the right ICA is patent. Left common carotid artery is patent. Atherosclerotic changes at the left carotid bifurcation contrib utes to a moderate, just over 50% stenosis of the carotid bulb. The remainder of the left ICA is rodriguez nt. NASCET criteria is utilized. Brain: The V4 segment left vertebral artery becomes slightly more hypoplastic. Otherwise, both vertebral and basilar arteries are patent as is the remainder of the posterior circulation. Dural venous sinuses are patent. Atherosclerotic calcifications in the bilateral carotid siphons. Internal carotid arteries are patent as is the remainder of the anterior circulation. No significant stenosis or aneurysmal change is identified. IMPRESSION: NECK: 1. ATHEROSCLEROTIC CHANGE OF THE BILATERAL CAROTID BIFURCATIONS. THIS RESULTS IN MODERATE, 65% PROXIM AL RIGHT ICA STENOSIS ON THE RIGHT AND MODERATE, JUST OVER 50% PROXIMAL LEFT ICA STENOSIS ON THE LEFT . NO HEMODYNAMICALLY SIGNIFICANT ICA STENOSIS IDENTIFIED. 2. 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 HEAD: 3. NO LARGE VESSEL INTRACRANIAL ARTERIAL OCCLUSION, SIGNIFICANT STENOSIS, OR ANEURYSMAL CHANGE IS SEE N. [facility], , 05/19/2024 11:42 AM
[2024-05-19] MEDS: T.ENECTEPLASE 5 MG/ML VIAL IVP STA (12:24)
[2024-05-19 12:48] LABS: INR 1.1 (<1.2); Partial Thromboplastin Time 22.8 sec (22.0-30.0); Prothrombin Time 11.6 sec (10.0-12.5)
--- NOTE | 2024-05-19 13:37 | P.GSCN ---
History of Present Illness Consult date: 05/19/24 Reason for Consult: Carotid stenosis, code stroke Requesting physician: Charles Contreras History of present illness: This a pleasant 69-year-old female with a history of dementia, diabetes mellitus and hypothyroidism who was brought in by EMS after she was found on the floor of her home. Apparently patient had fallen at home she is on sure why she fell if she tripped or if she was just weak. Apparently she laid on the ground for at least a couple hours if not more and could not get up due to weakness. Patient was admitted for weakness with fall and also was found to be positive for urinary tract infection. She does have a legal guardian secondary to her dementia. She was admitted to observation and mostly reportedly physical therapy was working with the patient and she had left-sided weakness. They called a code stroke. She had a CT of the brain with chronic ischemic changes, no acute findings and a CTA of the head and neck with reported 65% right ICA stenosis and greater than 50% of the left ICA. Patient was transferred to the ICU and started on T. enecteplase. Vascular surgery was consulted for carotid stenosis. She denies any previous history of carotid stenosis, states she does have a history of a stroke about 30 years ago when she lived in [place]. She states that she has been falling recently she states is more so that she secondary to not watching where she is going or when she is going up or down steps. States that she has had some visual changes but she is due for eye exam and does not wear her glasses. She is currently denying any focal deficits at this time, other than right sided weakness. Review of Systems A 14 point review systems was completed all pertinent positives and negatives as stated in the HPI. Past Medical History Past Medical History: Diabetes Mellitus, Eye Disorder, Thyroid Disorder History of Any Multi-Drug Resistant Organisms: None Reported Additional Past Surgical History / Comment(s): rt eye catartact removal Past Anesthesia/Blood Transfusion Reactions: No Reported Reaction Smoking Status: Never smoker Medications and Allergies Home Medications Medication Instructions Recorded Confirmed Type ARIPiprazole [Abilify] 2 mg PO DAILY 05/18/24 05/18/24 History Donepezil [Aricept] 10 mg PO HS 05/18/24 05/18/24 History Ergocalciferol (Vitamin D2) 1,250 mcg PO Q7D 05/18/24 05/18/24 History [Drisdol (50,000 Iu)] Levothyroxine Sodium [Synthroid] 25 mcg PO DAILY 05/18/24 05/18/24 History Mirtazapine [Remeron] 15 mg PO HS 05/18/24 05/18/24 History Triamcinolone 0.1% Ointment 1 applic TOPICAL TID 05/18/24 05/18/24 History [Kenalog 0.1% Ointment] lisinopriL [Zestril] 20 mg PO DAILY 05/18/24 05/18/24 History metFORMIN HCL [Glucophage] 500 mg PO BID 05/18/24 05/18/24 History ondansetron HCL [Ondansetron HCl] 8 mg PO TID PRN 05/18/24 05/18/24 History Allergies Allergy/AdvReac Type Severity Reaction Status Date / Time No Known Allergies Allergy Verified 05/18/24 16:16 Surgical - Exam Vital Signs Temp Pulse Resp BP Pulse Ox 99 F 70 16 188/66 98 05/18/24 12:19 05/18/24 12:19 05/18/24 12:19 05/18/24 12:19 05/18/24 12:19 General appearance: The patient is alert, oriented, appears in no acute distr ess. Obese. HET: Head is normocephalic and atraumatic. Pupils are equal and reactive. Neck: Supple. No audible bruit. Heart: Regular. Lungs: Equal expansion, normal respiratory effort. Abdomen: Soft, nontender, nondistended. Extremities: Normal skin color and turgor. Palpable bilateral radial and DP pulses. Neurological: Patient is alert and oriented. Speech is fluent, answers questions appropriately. Right sided upper and lower extremity weakness. Appears to have a left facial droop with smile. Results - Labs 05/19/24 10:16 05/19/24 10:16 Abnormal Lab Results - Last 24 Hours (Table) 05/18/24 05/18/24 05/18/24 Range/Units 13:08 13:08 13:27 WBC 13.6 H (3.8-10.6) k/uL Neutrophils # 11.1 H (1.3-7.7) k/uL Potassium 5.4 H (3.5-5.1) mmol/L Chloride 108 H (98-107) mmol/L BUN 25 H (7-17) mg/dL Creatinine 1.25 H (0.52-1.04) mg/dL Glucose 110 H (74-99) mg/dL POC Glucose (mg/dL) (70-110) mg/dL AST 46 H (14-36) U/L Creatine Kinase 524 H (30-135) U/L Urine Appearance Cloudy H (Clear) Urine Protein 1+ H (Negative) Urine Blood Small H (Negative) Urine Nitrite Positive H (Negative) Ur Leukocyte Esterase Large H (Negative) Urine RBC 8 H (0-5) /hpf Urine WBC 132 H (0-5) /hpf Urine WBC Clumps Moderate H (None) /hpf Amorphous Sediment Rare H (None) /hpf Urine Bacteria Many H (None) /hpf Urine Mucus Occasional H (None) /hpf 05/19/24 05/19/24 05/19/24 Range/Units 10:16 10:16 10:56 WBC 11.3 H (3.8-10.6) k/uL Neutrophils # 8.1 H (1.3-7.7) k/uL Potassium (3.5-5.1) mmol/L Chloride (98-107) mmol/L BUN 26 H (7-17) mg/dL Creatinine 1.64 H (0.52-1.04) mg/dL Glucose 113 H (74-99) mg/dL POC Glucose (mg/dL) 121 H (70-110) mg/dL AST 44 H (14-36) U/L Creatine Kinase (30-135) U/L Urine Appearance (Clear) Urine Protein (Negative) Urine Blood (Negative) Urine Nitrite (Negative) Ur Leukocyte Esterase (Negative) Urine RBC (0-5) /hpf Urine WBC (0-5) /hpf Urine WBC Clumps (None) /hpf Amorphous Sediment (None) /hpf Urine Bacteria (None) /hpf Urine Mucus (None) /hpf Diabetes panel 05/18/24 05/19/24 Range/Units 13:08 10:16 Sodium 141 141 (137-145) mmol/L Potassium 5.4 H 4.3 (3.5-5.1) mmol/L Chloride 108 H 105 (98-107) mmol/L Carbon Dioxide 22 25 (22-30) mmol/L BUN 25 H 26 H (7-17) mg/dL Creatinine 1.25 H 1.64 H (0.52-1.04) mg/dL Glucose 110 H 113 H (74-99) mg/dL Calcium 9.9 9.7 (8.4-10.2) mg/dL AST 46 H 44 H (14-36) U/L ALT 11 11 (4-34) U/L Alkaline Phosphatase 74 86 (38-126) U/L Total Protein 8.1 7.5 (6.3-8.2) g/dL Albumin 4.2 3.9 (3.5-5.0) g/dL Calcium panel 05/18/24 05/19/24 Range/Units 13:08 10:16 Calcium 9.9 9.7 (8.4-10.2) mg/dL Albumin 4.2 3.9 (3.5-5.0) g/dL Pituitary panel 05/18/24 05/19/24 Range/Units 13:08 10:16 Sodium 141 141 (137-145) mmol/L Potassium 5.4 H 4.3 (3.5-5.1) mmol/L Chloride 108 H 105 (98-107) mmol/L Carbon Dioxide 22 25 (22-30) mmol/L BUN 25 H 26 H (7-17) mg/dL Creatinine 1.25 H 1.64 H (0.52-1.04) mg/dL Glucose 110 H 113 H (74-99) mg/dL Calcium 9.9 9.7 (8.4-10.2) mg/dL Adrenal panel 05/18/24 05/19/24 Range/Units 13:08 10:16 Sodium 141 141 (137-145) mmol/L Potassium 5.4 H 4.3 (3.5-5.1) mmol/L Chloride 108 H 105 (98-107) mmol/L Carbon Dioxide 22 25 (22-30) mmol/L BUN 25 H 26 H (7-17) mg/dL Creatinine 1.25 H 1.64 H (0.52-1.04) mg/dL Glucose 110 H 113 H (74-99) mg/dL Calcium 9.9 9.7 (8.4-10.2) mg/dL Total Bilirubin 1.2 1.0 (0.2-1.3) mg/dL AST 46 H 44 H (14-36) U/L ALT 11 11 (4-34) U/L Alkaline Phosphatase 74 86 (38-126) U/L Total Protein 8.1 7.5 (6.3-8.2) g/dL Albumin 4.2 3.9 (3.5-5.0) g/dL - Imaging Comments: CT angiogram head and neck Neck reports arthrosclerotic change of the bilateral carotid bifurcations. This results in moderate 65% proximal right ICA stenosis on the right and moderate, just over 50% proximal left ICA stenosis on the left. No hemodynamically significant ICA stenosis identified. Anatomic variation with takeoff of the left vertebral artery directly from the aortic arch. No large vessel intracranial arterial occlusion, significant stenosis, or aneurysmal change is seen. Brain CT Similar mild ventriculomegaly likely due to central cerebral atrophy. Correlate with symptoms to exclude a component of [employer] H. Mild to moderate patchy border of chronic small vessel ischemic disease. No acute intracranial abnormality seen. Assessment and Plan Assessment: 1. Right ICA stenosis 65%, left greater than 50% per CTA 2. Right sided weakness, code stroke called 3. Recent fall 4. Urinary tract infection 5. Hypertension 6. Dementia Plan: 1. Will order carotid duplex 2. Await further evaluation and recommendations from neurology 3. Patient is status post T.enecteplase 4. PT, OT, ST on consult 5. Further recommendations forthcoming based on clinical course Thank you for this consultation, we will follow along. The impression and plan of care has been dictated as directed. I performed a history and examination of this patient, discussed the same with the dictator. I agree with the dictator's note ,documented as a scribe. Any additional findings or plans will be noted.
[2024-05-19] MEDS: ATORVASTATIN 40 MG TAB PO SCH (14:30)
--- NOTE | 2024-05-19 14:46 | P.CNNES ---
History of Present Illness Consult date: 05/19/24 Requesting physician: Tan Ulloa Reason for Consult: new onset right sided weakness and left facial droop History of Present Illness: This is a 69-year-old woman who presented emergency department on 05/18/2024 because of fall. Some of the history is obtained from the primary team resident as well as medical record. It seems that the patient had a fall the night prior to present to the hospital. It seems the patient has frequent falls. Seems patient has probable underlying acute urinary tract infection. Today she was evaluated by physical therapy around 10-magaly a.m. and noted she had right sided weakness. The resident from the primary team evaluated the patient around 8-magaly a.m. and he noted that she was moving all extremities and he did not noticed any focal deficit. As a result a code stroke was activated. Per this hospital visit the patient was receiving aspirin. Some of the workup during this hospital visit consisted of: Patient POC glucose is in the 120s Creatinine is 1.64 which is trended up from yesterday it was 1.25. BUN is 26. Sodium is 141. Calcium and ALT is within normal limits. AST is 44. CT of the head is reported as similar mild ventriculomegaly likely due to central cerebral atrophy. Correlate with symptoms to exclude component of NPH. Mild to moderate patchy border of chronic small vessel ischemic disease. No acute intracranial abnormality seen. I personally reviewed the CT and agree there is no acute or subacute stroke. CTA neck: Atherosclerotic changes of bilateral carotid bifurcation this results moderate 65% proximal right ICA stenosis on the right and moderate just over 50% proximal left ICA stenosis on the left. No hemodynamically significant ICA ralph nosis identified. Anatomic variation with takeoff of the left vertebral artery directly from the aortic arch. CTA head: No large vessel intracranial arterial occlusion, significant stenosis or aneurysm changes seen NIH stroke scale was 7 initially with right sided weakness (lower > upper) and left facial droop. On second NIH was 5. Dr. Gagnon (tele-stroke attending) was contacted about the case and he stated to pursue with IV thrombolytics. The nurse asked me to evaluate patient. The patient, she stated that her symptoms began about 2 days ago. I reach out to resident from the primary team and he stated that patient was moving her extremities normally yesterday and tomorrow or early in the morning and he did notice upon reevaluating her in the morning that she did have deficits but when he evaluated her around 8-magaly a.m. she did not have any focal deficit. He stated that the patient has underlying history of dementia and she confabulates. I asked the nurse to obtain vitals wh ich the blood pressure was within TNK window. The nurse and myself reached out to the legal guardian and I spoke with them personally and notified about the situation and notified them about benefit vs the risk and they decided to pursue with IV TNK. The IV TNK took a prolonged period of time since was unknown exactly when was last normal and exact time frame. Review of Systems Limited but as per HPI. Past Medical History Past Medical History: Dementia, Diabetes Mellitus, Eye Disorder, Hypertension, Thyroid Disorder Additional Past Medical History / Comment(s): blood in urine noticed by daughter 1 year 2023, but never followed up w/dr. History of Any Multi-Drug Resistant Organisms: None Reported Additional Past Surgical History / Comment(s): rt eye catartact removal and implant Past Anesthesia/Blood Transfusion Reactions: No Reported Reaction Past Psychological History: No Psychological Hx Reported Smoking Status: Never smoker Past Alcohol Use History: None Reported Past Drug Use History: None Reported, Marijuana Medications and Allergies Home Medications Medication Instructions Recorded Confirmed Type ARIPiprazole [Abilify] 2 mg PO DAILY 05/18/24 05/18/24 History Donepezil [Aricept] 10 mg PO HS 05/18/24 05/18/24 History Ergocalciferol (Vitamin D2) 1,250 mcg PO Q7D 05/18/24 05/18/24 History [Drisdol (50,000 Iu)] Levothyroxine Sodium [Synthroid] 25 mcg PO DAILY 05/18/24 05/18/24 History Mirtazapine [Remeron] 15 mg PO HS 05/18/24 05/18/24 History Triamcinolone 0.1% Ointment 1 applic TOPICAL TID 05/18/24 05/18/24 History [Kenalog 0.1% Ointment] lisinopriL [Zestril] 20 mg PO DAILY 05/18/24 05/18/24 History metFORMIN HCL [Glucophage] 500 mg PO BID 05/18/24 05/18/24 History ondansetron HCL [Ondansetron HCl] 8 mg PO TID PRN 05/18/24 05/18/24 History Allergies Allergy/AdvReac Type Severity Reaction Status Date / Time No Known Allergies Allergy Verified 05/18/24 16:16 Physical Examination - Vital Signs Vital Signs: Vital Signs Temp Pulse Resp BP Pulse Ox 05/19/24 13:40 85 14 177/75 95 05/19/24 13:25 86 12 175/59 96 05/19/24 13:10 92 16 163/60 96 05/19/24 12:55 89 19 163/71 93 L 05/19/24 12:40 78 11 L 181/67 96 05/19/24 12:25 98 F 80 21 172/70 97 05/19/24 12:15 98 F 72 16 172/70 95 05/19/24 06:00 98.1 F 74 16 178/86 98 05/19/24 03:21 75 12 127/59 98 05/18/24 19:28 98.0 F 80 22 149/65 97 05/18/24 18:00 77 16 161/70 98 05/18/24 17:00 79 16 168/62 98 05/18/24 15:25 98.2 F 78 16 106/64 96 05/18/24 14:23 70 16 158/73 98 Intake and Output 05/18/24 05/19/24 05/19/24 22:59 06:59 14:59 Intake Total 150 Output Total 150 Balance 0 Intake: IV 150 Sodium Chloride 0.9% 1, 150 000 ml @ 75 mls/hr IV . [id number] [facility] Rx#:[id number] Output: Urine 150 Other: Voiding Method Bedpan External Catheter Weight 97.522 kg General: Lying in bed and is not in acute distress. HENT: Supple neck. Neuro: Limited since patient has underlying dementia. Patient is awake alert oriented to self. She is following simple commands. No aphasia from limited language The pupils are round about 4 mm and reactive to light. Visual gerard are full to confrontation. Extraocular movements intact no nystagmus. Normal facial sensation to touch. Patient does have mild left lower facial droop. No dysarthria Tongue is midline moves [id number] with any difficulty Motor: Right upper extremity right arm extension patient has about a 3 right hand wood miller is 3-4. Patient does have her right upper extremity drift. Left arm flexion is about a 4 -. Right lower extremity is 0-1. Left upper lower extremity is 5 out of 5. Sensation: She could not tell me if it feels normal to touch but it seems that she had normal painful stimuli bilaterally. Reflexes 2 positive throughout except for the left lower extremity is a 1 positive. Plantars are mute. Results - Laboratory Findings CBC and BMP: 05/19/24 10:16 05/19/24 10:16 Abnormal Lab Findings: Abnormal Labs 05/18/24 05/18/24 05/18/24 13:08 13:08 13:27 WBC 13.6 H Neutrophils # 11.1 H Potassium 5.4 H Chloride 108 H BUN 25 H Creatinine 1.25 H Glucose 110 H POC Glucose (mg/dL) AST 46 H Creatine Kinase 524 H Urine Appearance Cloudy H Urine Protein 1+ H Urine Blood Small H Urine Nitrite Positive H Ur Leukocyte Esterase Large H Urine RBC 8 H Urine WBC 132 H Urine WBC Clumps Moderate H Amorphous Sediment Rare H Urine Bacteria Many H Urine Mucus Occasional H 05/19/24 05/19/24 05/19/24 10:16 10:16 10:56 WBC 11.3 H Neutrophils # 8.1 H Potassium Chloride BUN 26 H Creatinine 1.64 H Glucose 113 H POC Glucose (mg/dL) 121 H AST 44 H Creatine Kinase Urine Appearance Urine Protein Urine Blood Urine Nitrite Ur Leukocyte Esterase Urine RBC Urine WBC Urine WBC Clumps Amorphous Sediment Urine Bacteria Urine Mucus Assessment and Plan Assessment: This is a 69-year-old woman present emergency department on 05/18/2024 because of a fall the night prior. Seems the patient has recurrent falls. This hospi heidy visit seems to the patient has probable acute urinary tract infection. Today it was noted the patient had right sided weakness and left facial droop upon being evaluated by physical therapy around 10-magaly a.m. and last normal reported around 8-magaly a.m. by resident from primary team. Acute right sided weakness as well as left facial droop is likely acute ischemic stroke status post IV TNK. Her initial NIH stroke scale was a 7 and the repeat was a 5 Right ICA stenosis of about 65 and left ICA of 50%. CT angiography Likely acute urinary tract infection Recurrent falls Underlying history of dementia and per the resident from primary team he states the patient confabulates at baseline Hypothyroidism Diabetes mellitus Plan: I ordered MRI of the brain lipid panel Will get repeat CT head tomorrow post 24 hours IV thrombolytics. 2D echo was ordered and is pending I stopped the patient aspirin since the patient is getting IV TNK. Continue Lipitor 40 mg daily. Recommend the systolic blood pressure to be less than 180 and diastolic less than 105 per IV TNK protocol. Use IV labetalol as needed if needed and will defer the management to the primary/ICU team Continue neurochecks per IV TNK protocol Cardiac monitoring PT OT and DIESEL ENGINE ASSEMBLER are consulted I consulted vascular surgery team for the carotid stenosis Will defer the rest of the medical management to primary and other specialist For DVT prophylaxis use SCDs Plan discussed with the legal guardian, the primary team and her nurse Thank you for the consultation. Total care for the patient was a 50-minutes Time with Patient: Greater than 30
--- NOTE | 2024-05-19 14:48 | US ---
EXAMINATION TYPE: US carotid duplex BILAT DATE OF EXAM: 05/19/2024 COMPARISON: CTA: TOday CLINICAL INDICATION: Female, 69 years old with history of right sided weakness, code stroke; stroke Additional History: G45.9 Transient Ischemic Attack (TIA) various Most positive vascular findings of extracranial vessels; specified laterality eye & ear disorders TECHNIQUE: Grayscale, color Doppler and spectral Doppler evaluation of the bilateral carotid systems and vertebral arteries. Indirect Doppler criteria was utilized. FINDINGS: EXAM MEASUREMENTS: RIGHT: Peak Systolic Velocity (PSV) cm/sec ----- Right CCA: 63.4 ----- Right ICA: 135 ----- Right ECA: 57.8 ICA/CCA ratio: 2.1 RIGHT: End Diastole cm/sec ----- Right CCA: 8.5 ----- Right ICA: 18.7 ----- Right ECA: 4.7 LEFT: Peak Systolic Velocity (PSV) cm/sec ----- Left CCA: 76.1 ----- Left ICA: 85.5 ----- Left ECA: 100 ICA/CCA ratio: 1.1 LEFT: End Diastole cm/sec ----- Left CCA: 12.1 ----- Left ICA: 22.0 ----- Left ECA: 7.8 VERTEBRALS (direction of flow): Right Vertebral: Antegrade Left Vertebral: Antegrade Rhythm: Normal LAWYER NOTES: Plaque seen in right bulb Color Doppler imaging shows patency with blood flow throughout the carotid artery. Spectral waveforms are within normal limits. IMPRESSION: Some elevation in velocities proximal right ICA indicating a moderate (50-69%) stenosis. No hemodynam ically significant internal carotid artery stenosis on either side. Criteria for Assigning % of Stenosis / Diameter reduction (Estimation based on the indirect measurements of the internal carotid artery velocities (ICA PSV). 1. Normal (no stenosis)=ICA PSV < 125 cm/s: ratio < 2.0: ICA EDV<40 cm/s. 2. Less than 50% stenosis=ICA PSV < 125 cm/s: ratio < 2.0: ICA EDV<40 cm/s. 3. 50 to 69% stenosis=ICA PSV of 125 to 230 cm/s: ration 2.0 ? 4.0: ICA EDV 40-100 cm/s. 4. Greater than 70% stenosis to near occlusion= ICA PSV > 230 cm/s: ratio > 4.0: ICA EDV > 100 cm/s. 5. Near occlusion= ICA PSV velocities may be low or undetectable: variable ratio and ICA EDV. 6. Total occlusion=unable to detect flow. [facility], Workstation: [facility], 05/19/2024 2:46 PM
--- NOTE | 2024-05-19 14:58 | P.PN ---
Subjective Progress Note Date: 05/19/24 History of present illness; Patient is a 69-year-old female with a past medical history significant for pio betes mellitus, thyroid disorder. She presented to the emergency department after falling at home. She states that she has frequent falls, with the most recent one being last night which brought her to the emergency department today. She states that she was in her apartment and attempting to clean her apartment, at that time she states that she lost her footing and fell on her left side. She states that she did not hit her head, however she does attest to having felt some dizziness prior to falling. She was found on the ground by her son-in-law, and she is unsure of how long she was on the ground for but believes it to be at least 2 hours stating that she was too weak to get herself up. She has no acute pain anywhere on her body, however notes some generalized soreness in her lower extremities and her right shoulder. She lives alone and states that she is able to handle most activities of daily living by herself. She states that she has not taken any anticoagulation medications. 05/19/24 - Patient seen and examined at bedside. She had no events overnight, stated she was feeling better. With no acute complaints. Was contacted by the nurse at approximately 10:45 AM noting there was new onset weakness in the patient's right side, asking if this was new compared to yesterd ay when the patient was previously seen. Went down and saw the patient in the observation unit to assess, her right arm was in decerebrate positioning and noted she had an inability to move right lower extremity, drift when extending her right upper extremity. Additionally, patient was noted to have left-sided facial droop, as well as left-sided deviation of the tongue when protruding. During this time she was able to fully converse and answer questions appropriately, although maintaining her circumstantial speech as well as confabulation. At that time code stroke was called. PHYSICAL EXAMINATION: GENERAL: The patient is alert and oriented x3, with circumstantial speech with confabulation HEENT: Pupils are round and equally reacting to light. EOMI. No scleral icterus. No conjunctival pallor. CARDIOVASCULAR: S1 and S2 present. No murmurs, rubs, or gallops. PULMONARY: Chest is clear to auscultation, no wheezing or crackles. ABDOMEN: Soft, nontender, nondistended, normoactive bowel sounds. No palpable organomegaly. Suprapubic tenderness to palpations. MUSCULOSKELETAL: No joint swelling or deformity. EXTREMITIES: No cyanosis, clubbing, or pedal edema. NEUROLOGICAL: Inability to move right lower extremity; drift with extension of right upper extremity; right upper extremity noted to be into 3 repositioning; decreased senior administrative services officer strength on the right side; left sided facial droop and tongue deviation SKIN: No rashes. New data today: Labs: WBC 11.3, hemoglobin 12.8, hct 40.5, platelet 273; sodium 141, potassium 4.3, BUN 26, creatinine 1.64 Imaging: -Brain CT showed similar mild ventriculomegaly likely due to central cerebral atrophy; mild to moderate patchy report of chronic small vessel ischemic disease -CT angiography head/neck showed atherosclerotic change of the bilateral carotid bifurcations resulting in moderate, 65% proximal right ICA stenosis on the right and moderate, just over 50% proximal left ICA stenosis on the left - no hemodynamically significant ICA stenosis identified; no large vessel intracranial arterial occlusion, significant stenosis, or aneurysmal change seen -Carotid Doppler study currently pending read by radiology Assessment and plan 69-year-old female with PMH of diabetes mellitus, thyroid disorder. Presents emergency department following a fall at home in which she notes to having some dizziness prior to falling. #New onset right-sided weakness #History of previous stroke ~30 years ago -Last known normal ~7:30-8:00 am -~10:45 a.m. patient was noted to have weakness of her right lower extremity -Code stroke called -CT brain completed, read and reviewed -CT angiography head/neck read and reviewed -Carotid Doppler study currently pending read by radiology -MRI brain w/o contrast ordered, pending -Patient received TNK 24.5 mg IV push once -Initiated aspirin 325 mg once this morning, will continue with 81 mg aspirin daily starting tomorrow -Initiated 40 mg Lipitor daily, with first dose being given this morning -Lipid panel ordered -PT, OT, ST on consult -Await further evaluation and recommendation from neurology -Patient transferred to the ICU for closer observation and management #Syncope v Mechanical fall #Debility -Echocardiogram pending -Orthostatics pending -Cardiac monitoring -On Aricept, monitor for bradycardic episodes - if occurring, consider D/C #Complicated urinary tract infection -WBC 13.6 with associated tenderness of the bladder -Urinalysis positive with nitrites and leukocyte Estrace -Urine culture pending -Patient will continue with Rocephin 1 g IVPB every 24 hours -Continue on NS 75 cc/h -Monitor CBC, BMP Chronic conditions: #Dementia - continue home medications #Hypothyroidism - Continue home medications GI prophylaxis: Not indicated DVT prophylaxis: Lovenox 40 mg subcu daily Dictation was produced using [employer] dictation software. please excuse any grammatical, word or spelling errors. I saw and evaluated the patient during the wise and critical portions of this encounter, and discussed the case in detail with the resident author of this note, I agree with the Assessment and Plan, and my changes, if any, are highlighted in blue. Objective - Vital Signs Vital signs: Vital Signs Temp 98.1 F 05/19/24 06:00 Pulse 74 05/19/24 06:00 Resp 16 05/19/24 06:00 BP 178/86 05/19/24 06:00 Pulse Ox 98 05/19/24 06:00 FiO2 Intake & Output 05/18/24 05/18/24 05/19/24 06:59 18:59 06:59 Weight 97.522 kg - Labs CBC & Chem 7: 05/19/24 10:16 05/19/24 10:16 Labs: Abnormal Lab Results - Last 24 Hours (Table) 05/18/24 05/18/24 05/18/24 Range/Units 13:08 13:08 13:27 WBC 13.6 H (3.8-10.6) k/uL Neutrophils # 11.1 H (1.3-7.7) k/uL Potassium 5.4 H (3.5-5.1) mmol/L Chloride 108 H (98-107) mmol/L BUN 25 H (7-17) mg/dL Creatinine 1.25 H (0.52-1.04) mg/dL Glucose 110 H (74-99) mg/dL AST 46 H (14-36) U/L Creatine Kinase 524 H (30-135) U/L Urine Appearance Cloudy H (Clear) Urine Protein 1+ H (Negative) Urine Blood Small H (Negative) Urine Nitrite Positive H (Negative) Ur Leukocyte Esterase Large H (Negative) Urine RBC 8 H (0-5) /hpf Urine WBC 132 H (0-5) /hpf Urine WBC Clumps Moderate H (None) /hpf Amorphous Sediment Rare H (None) /hpf Urine Bacteria Many H (None) /hpf Urine Mucus Occasional H (None) /hpf
--- NOTE | 2024-05-19 19:48 | P.CNPUL ---
History of Present Illness Consult date: 05/19/24 Chief complaint: Acute CVA, right-sided weakness History of present illness: This is a 69-year-old female patient was brought into the intensive. Receiving thrombolytics for new onset right-sided weakness and left facial droop. The patient is not have dementia. She is known to have diabetes mellitus with chronic kidney disease. She is also known to have hypertension hyperlipidemia. She has been having episodes of falls and earlier this morning, the patient was noted to have right-sided weakness. CT scan of the head showed mild ventriculomegaly and cerebral atrophy. Chronic small vessel ischemic changes. CTA of the neck showed 65% proximal right ICA and 50% proximal left ICA and the carotid Doppler showed no significant hemodynamically stenosis of the carotids. CTA of the head and neck showed no large vessel intracranial arterial occlusion. Initial NIH score was 7. The patient was given TNK and following that she was admitted to the intensive care unit. Motor function in the right upper extremity is adequate. There is some ongoing weakness in the right lower extremity. She is awake alert and communicating. Family at the bedside. No vision changes. No headaches. No seizure activity. She has been found to have UTI and currently the patient is on IV Rocephin. Afebrile and hemodynamically stable. Normal coagulation profile. Creatinine is at 1.4 consistent with chronic kidney disease with a GFR of 32. Hemoglobin is at 12.8. Review of Systems Constitutional: Reports daytime sleepiness, Reports fatigue, Reports weight gain Eyes: denies as per HPI, denies blurred vision, denies bulging eye, denies decreased vision, denies diplopia, denies discharge, denies dry eye, denies irritation, denies itching, denies pain, denies photophobia, denies loss of peripheral vision, denies loss of vision, denies tunnel vision/blind spots Ears: deny: decreased hearing, ear discharge, earache, tinnitus Ears, nose, mouth and throat: Reports as per HPI Breasts: absent: as per HPI, change in shape, gynecomastia, masses, nipple discharge, pain, skin changes, swelling Breasts: Reports as per HPI Cardiovascular: Reports as per HPI Respiratory: Reports as per HPI Gastrointestinal: Reports as per HPI Genitourinary: Reports as per HPI Menstruation: Reports as per HPI Musculoskeletal: absent: ankle pain, ankle stiffness, ankle swelling, as per HPI, elbow pain, elbow stiffness, elbow swelling, foot pain, foot stiffness, foot swelling, hand pain, hand stiffness, hand swelling, hip pain, hip stiffness, hip swelling, knee pain, knee stiffness, knee swelling, shoulder pain, shoulder stiffness, shoulder swelling, wrist pain, wrist stiffness, wrist swelling Integumentary: Reports as per HPI Neurological: Reports gait dysfunction, Reports memory loss, Reports weakness Psychiatric: Reports as per HPI Hematologic/Lymphatic: Reports as per HPI Allergic/Immunologic: Reports as per HPI Past Medical History Past Medical History: Dementia, Diabetes Mellitus, Eye Disorder, Hypertension, Renal Disease, Thyroid Disorder Additional Past Medical History / Comment(s): blood in urine noticed by daughter 1 year 2023, but never followed up w/dr. History of Any Multi-Drug Resistant Organisms: None Reported Additional Past Surgical History / Comment(s): rt eye catartact removal and implant Past Anesthesia/Blood Transfusion Reactions: No Reported Reaction Past Psychological History: No Psychological Hx Reported Smoking Status: Never smoker Past Alcohol Use History: None Reported Past Drug Use History: None Reported, Marijuana Medications and Allergies Home Medications Medication Instructions Recorded Confirmed Type ARIPiprazole [Abilify] 2 mg PO DAILY 05/18/24 05/18/24 History Donepezil [Aricept] 10 mg PO HS 05/18/24 05/18/24 History Ergocalciferol (Vitamin D2) 1,250 mcg PO Q7D 05/18/24 05/18/24 History [Drisdol (50,000 Iu)] Levothyroxine Sodium [Synthroid] 25 mcg PO DAILY 05/18/24 05/18/24 History Mirtazapine [Remeron] 15 mg PO HS 05/18/24 05/18/24 History Triamcinolone 0.1% Ointment 1 applic TOPICAL TID 05/18/24 05/18/24 History [Kenalog 0.1% Ointment] lisinopriL [Zestril] 20 mg PO DAILY 05/18/24 05/18/24 History metFORMIN HCL [Glucophage] 500 mg PO BID 05/18/24 05/18/24 History ondansetron HCL [Ondansetron HCl] 8 mg PO TID PRN 05/18/24 05/18/24 History Allergies Allergy/AdvReac Type Severity Reaction Status Date / Time No Known Allergies Allergy Verified 05/18/24 16:16 Physical Exam Vitals: Vital Signs Temp Pulse Resp BP Pulse Ox 05/19/24 18:55 72 23 177/84 95 05/19/24 18:25 88 23 162/87 95 05/19/24 17:55 71 24 155/65 95 05/19/24 17:25 78 14 158/70 95 05/19/24 16:25 69 30 H 156/75 93 L 05/19/24 16:00 67 30 H 173/75 92 L 05/19/24 15:55 66 21 173/75 92 L 05/19/24 15:40 12 05/19/24 15:25 88 11 L 159/90 93 L 05/19/24 15:10 85 12 164/79 94 L 05/19/24 14:55 81 10 L 179/68 96 05/19/24 14:25 85 14 174/64 95 05/19/24 14:10 73 33 H 161/70 90 L 05/19/24 13:55 75 24 176/66 93 L 05/19/24 13:40 85 14 177/75 95 05/19/24 13:25 86 12 175/59 96 05/19/24 13:10 92 16 163/60 96 05/19/24 12:55 89 19 163/71 93 L 05/19/24 12:40 78 11 L 181/67 96 05/19/24 12:25 98 F 80 21 172/70 97 05/19/24 12:15 98 F 72 16 172/70 95 05/19/24 06:00 98.1 F 74 16 178/86 98 05/19/24 03:21 75 12 127/59 98 05/18/24 19:28 98.0 F 80 22 149/65 97 Intake and Output 05/19/24 05/19/24 05/19/24 06:59 14:59 22:59 Intake Total 225 615 Output Total 150 300 Balance 75 315 Intake: IV 225 375 Sodium Chloride 0.9% 1, 225 375 000 ml @ 75 mls/hr IV . [id number] [facility] Rx#:[id number] Oral 240 Output: Urine 150 300 Other: Voiding Method Bedpan Bedpan External Catheter External Catheter Weight 97.522 kg General: Lying in bed and is not in acute distress. Patient has a BMI of 34.7. Currently on room air oxygen. Head exam was generally normal. There was no scleral icterus or corneal arcus. Mucous membranes were moist. Neck was supple and without jugular venous distension, thyromegaly, or carotid bruits. Carotids were easily palpable bilaterally. There was no adenopathy. Lungs were clear to auscultation and percussion, and with normal diaphragmatic excursion. No wheezes or rales were noted. Cardiac exam revealed the PMI to be normally situated and sized. The rhythm was regular and no extrasystoles were noted during several minutes of auscultation. The first and second heart sounds were normal and physiologic splitting of the second heart sound was noted. There were no murmurs, rubs, clicks, or gallops. Abdominal exam revealed normal bowel sounds. The abdomen was soft, non-tender, and without masses, organomegaly, or appreciable enlargement of the abdominal aorta. Examination of the extremities revealed easily palpable radial, femoral and pedal pulses. There was no cyanosis, clubbing or edema. Examination of the skin revealed no evidence of significant rashes, suspicious appearing nevi or other concerning lesions. Neurologic examination is limited since patient has underlying dementia. Patient is awake alert oriented to self. She is following simple commands. No aphasia from limited language The pupils are round about 4 mm and reactive to light. Visual gerard are full to confrontation. Extraocular movements intact no nystagmus. Normal facial sensation to touch. Patient does have mild left lower facial droop. No dysarthria Tongue is midline moves [id number] with any difficulty Motor: Right upper extremity right arm extension patient has about a 3 right hand bit tripoler is 3-4. Patient does have her right upper extremity drift. Left arm flexion is about a 4 -. Right lower extremity is 0-1. Left upper lower extremity is 5 out of 5. Sensation: She could not tell me if it feels normal to touch but it seems that she had normal painful stimuli bilaterally. Reflexes 2 positive throughout except for the left lower extremity is a 1 positive. Plantars are mute. Results - Laboratory Findings CBC and BMP: 05/19/24 10:16 05/19/24 10:16 PT/INR, D-dimer PT 11.6 sec (10.0-12.5) 05/19/24 12:11 INR 1.1 (<1.2) 05/19/24 12:11 Abnormal lab findings: Abnormal Labs 05/18/24 05/18/24 05/18/24 13:08 13:08 13:27 WBC 13.6 H Neutrophils # 11.1 H Potassium 5.4 H Chloride 108 H BUN 25 H Creatinine 1.25 H Glucose 110 H POC Glucose (mg/dL) AST 46 H Creatine Kinase 524 H Urine Appearance Cloudy H Urine Protein 1+ H Urine Blood Small H Urine Nitrite Positive H Ur Leukocyte Esterase Large H Urine RBC 8 H Urine WBC 132 H Urine WBC Clumps Moderate H Amorphous Sediment Rare H Urine Bacteria Many H Urine Mucus Occasional H 05/19/24 05/19/24 05/19/24 10:16 10:16 10:56 WBC 11.3 H Neutrophils # 8.1 H Potassium Chloride BUN 26 H Creatinine 1.64 H Glucose 113 H POC Glucose (mg/dL) 121 H AST 44 H Creatine Kinase Urine Appearance Urine Protein Urine Blood Urine Nitrite Ur Leukocyte Esterase Urine RBC Urine WBC Urine WBC Clumps Amorphous Sediment Urine Bacteria Urine Mucus Assessment and Plan Plan: Acute CVA with right-sided weakness and left facial droop, status post TNK treatment. Initial NIH score was 7. CT scan of the brain showed cerebral atrophy and CT angiogram of the brain showed no intracranial vascular abnormalities and the patient has bilateral carotid artery disease, 65% on the right ICA and 50% of the left Bilateral carotid artery disease Dementia Diabetes mellitus type 2 Chronic kidney disease Hypothyroidism Hypertension UTI, currently on IV Rocephin Plan Monitor neurological functions in the intensive care unit Obtain follow-up CAT scan of the brain within next 24 hours MRI of the brain for later stage Neurology consultation Check HbA1c and lipid profile Monitor blood pressure and keep the systolic blood pressure above 140 and below 180 and avoid any significant hypotension Cardiac rhythm is sinus Obtain echocardiogram monitor technician Vascular consultation Neurology consultation The patient intensive care unit
[2024-05-19] MEDS: ACETAMINOPHEN TAB 325 MG TAB PO PRN (20:51)
[2024-05-20 07:02] LABS: African American GFR (CKD) 47 (>60 ml/min/1.73 sqM); Anion Gap 8 mmol/L; Blood Urea Nitrogen 21 mg/dL (7-17); Calcium 9.3 mg/dL (8.4-10.2); Carbon Dioxide 22 mmol/L (22-30); Chloride 109 mmol/L (98-107); Glucose 96 mg/dL (74-99); Non-African American GFR(CKD) 41 (>60 ml/min/1.73 sqM); Potassium 4.4 mmol/L (3.5-5.1); Sodium 139 mmol/L (137-145)
[2024-05-20 07:16] LABS: Basophils # (A) 0.1 k/uL (0-0.2); Basophils % (A) 1 %; Eosinophils # (A) 0.3 k/uL (0-0.7); Eosinophils % (A) 3 %; HCT 40.4 % (34.0-46.0); HGB 12.3 gm/dL (11.4-16.0); Hypochromasia Marked; Lymphocytes # (A) 1.8 k/uL (1.0-4.8); Lymphocytes % (A) 18 %; MCH 28.3 pg (25.0-35.0); MCHC 30.3 g/dL (31.0-37.0); MCV 93.2 fL (80.0-100.0); Mean Platelet Volume 7.4; Monocytes # (A) 0.6 k/uL (0-1.0); Monocytes % (A) 7 %; Neutrophils # (A) 6.8 k/uL (1.3-7.7); Neutrophils % (A) 70 %; Platelet Count 219 k/uL (150-450); RBC 4.34 m/uL (3.80-5.40); RDW 13.6 % (11.5-15.5); WBC 9.7 k/uL (3.8-10.6)
[2024-05-20] MEDS ORDERED: ASPIRIN 81 MG PO SCH (09:00)
[2024-05-20] MEDS ORDERED: DEXTROSE 50% SYRINGE 50 ML IVP PRN ×2 (09:37)
--- NOTE | 2024-05-20 10:39 | MR ---
INDICATION: Patient age:Female; 69 years old; Reason for study: stroke. right sided weakness; PHH. COMPARISON: CT brain 05/19/2024, CTA head and neck 05/19/2024, MRI brain 12/17/2022, CT brain C-spine . TECHNIQUE: Multi planar, multi sequence imaging was performed through the brain without administratio n of intravenous contrast. FINDINGS: Mild diffuse cerebral atrophy with prominence of the ventricular system, basal cisterns, and peripher al sulci. The horn-white junction appears unremarkable. There is 2 distinct regions of restricted dif fusion within the posterior aspect of the left caudate nucleus body and left splenium of the corpus c allosum. There is corresponding FLAIR signal hyperintensity. Intracranial arterial flow voids are gena ntained. Midline structures show no abnormality. Similar patchy areas of high T2/FLAIR signal intensi ty are seen within the periventricular and subcortical white matter. The susceptibility weighted imag es demonstrate prior hemosiderin deposition within the right frontal subdural space. The bone marrow signal is within normal limits. Bilateral aphakia. Left anterior inferior maxillary s inus 1.2 cm mucous retention cyst. Remaining paranasal sinuses appear clear. IMPRESSION: 1. Acute/subacute ischemia within the posterior aspect of the left caudate nucleus body and left sple nium of the corpus callosum. 2. Similar mild to moderate nonspecific white matter changes, likely related to small vessel ischemic disease. [facility], , 05/20/2024 10:37 AM
[2024-05-20 10:55] LABS: VLDL Calculation 18.94 mg/dL (5.00-40.00)
--- NOTE | 2024-05-20 11:40 | CT ---
EXAMINATION TYPE: CT brain wo con DATE OF EXAM: 05/20/2024 11:26 AM COMPARISON: 05/19/2024 CLINICAL INDICATION: Female, 69 years old with history of post 24hrs TNK for stroke, , TECHNIQUE: Examination was done in axial plane without intravenous contrast. Coronal and sagittal r econstructions performed. CT DLP: 1100.6 mGycm, Automated exposure control for dose reduction was used. FINDINGS: There is no evidence of acute intracranial hemorrhage, acute ischemic changes, mass, mass-effect, or extra-axial fluid collection. There is no effacement of cerebral sulci or basal subarachnoid cister ns. Similar mild ventricular prominence and moderate patchy white matter hypodensities. There is no m idline shift. Cage-white matter distinction is preserved. Hypodensity posterior left basal ganglia and left splenium of the corpus callosum may be minimally mo re pronounced, axial image 25 and 26. Redemonstrated benign basal ganglionic calcifications. Orbits and globes are intact. No rosa maria opacification of the paranasal sinuses. Prominent cerumen deep in the external auditory canals. Mastoid air cells well pneumatized. IMPRESSION: Moderate patchy burden of chronic small vessel ischemic disease. Hypodensity along the left basal adela glia and splenium of the left corpus callosum minimally more pronounced, corresponding to the site of acute/subacute infarct on MRI earlier today. No hemorrhagic transformation. [facility], Workstation: [email or web address], 05/20/2024 11:38 AM
[2024-05-20] MEDS: INSULIN ASPART (NovoLOG) 100 UNIT/ML VIAL SQ SCH (12:00)
--- NOTE | 2024-05-20 13:19 | CA ---
Transthoracic Echo Report Name: Codi Campos Age: 69 Gender: F : 1955 Exam Date: 05/19/2024 13:56 Exam Location: [facility] Ht (in): 66 Wt (lb): 215 Ordering Physician: Tan Ulloa MD Attending/Referring Phys: Tub Tender Anny Hammond RDCS Procedure CPT: Indications: Slurred speech, CVA Cardiac Hx: Technical Quality: Poor Contrast 1: Definity Total Dose (mL): 2 Contrast 2: Agitated Saline Total Dose (mL): MEASUREMENTS (Male / Female) Normal Values 2D ECHO LV Diastolic Diameter PLAX 3.8 cm 4.2 - 5.9 / 3.9 - 5.3 cm LV Systolic Diameter PLAX 2.0 cm IVS Diastolic Thickness 1.5 cm 0.6 - 1.0 / 0.6 - 0.9 cm LVPW Diastolic Thickness 1.7 cm 0.6 - 1.0 / 0.6 - 0.9 cm LV Relative Wall Thickness 0.9 RV Internal Dim ED PLAX 1.4 cm LA Systolic Diameter LX 3.7 cm 3.0 - 4.0 / 2.7 - 3.8 cm M-MODE Aortic Root Diameter MM 3.1 cm LA Systolic Diameter MM 3.5 cm LA Ao Ratio MM 1.1 AV Cusp Separation MM 1.8 cm DOPPLER AV Peak Velocity 160.5 cm/s AV Peak Gradient 10.3 mmHg AV Mean Velocity 108.5 cm/s AV Mean Gradient 5.4 mmHg AV Velocity Time Integral 35.0 cm LVOT Peak Velocity 140.4 cm/s LVOT Peak Gradient 7.9 mmHg LVOT Velocity Time Integral 27.9 cm MV Peak Velocity 164.1 cm/s MV Peak Gradient 10.8 mmHg MV Mean Velocity 107.3 cm/s MV Mean Gradient 5.3 mmHg MV Velocity Time Integral 54.0 cm Mitral E Point Velocity 123.4 cm/s Mitral A Point Velocity 141.7 cm/s Mitral E to A Ratio 0.9 MV Deceleration Time 395.7 ms FINDINGS Left Ventricle Left ventricular ejection fraction is estimated at 55-60 %. Normal Left ventricular size, wall thickness, systolic function with no obvious regional wall motion abnormalities. Normal Left ventricular diastolic filling pattern. Moderately increased septal wall thickness. Severely increased posterior wall thickness. Right Ventricle Mild right ventricular dilatation. Right Atrium Moderate right atrial dilatation. Left Atrium Moderate left atrial dilatation. Mitral Valve Moderate mitral stenosis MV Mean PG 5mmHg. Mitral valve thickened. Severe mitral annular calcification. Trace mitral regurgitation. Aortic Valve Trileaflet aortic valve. No aortic valve stenosis or regurgitation. Tricuspid Valve Structurally normal tricuspid valve. No tricuspid stenosis. Trace tricuspid regurgitation. Pulmonic Valve Structurally normal pulmonic valve. Trace pulmonic regurgitation. No pulmonic stenosis. Pericardium No pericardial or pleural effusion. Echo free space anterior to the right ventricle likely represents a fat pad. Aorta Normal size aortic root and proximal ascending aorta. CONCLUSIONS Normal LV size and systolic function with mild to moderate concentric LVH. Mild right ventricular prominence. Moderate dilatation of both atria. There is heavy mitral annular calcification with thickening of mitral valve leaflets and some calcific mild stenosis. Aortic valve reveals some sclerosis no restriction. Mild mitral and tricuspid regurgitation no pericardial effusion possible fat. Saline contrast suggests a possible PFO Previewed by: Dr. Kenyatta Rboles MD (Electronically Signed) Final Date: 20 May 2024 13:19
[2024-05-20] MEDS: ASPIRIN 81 MG PO SCH (14:00)
--- NOTE | 2024-05-20 14:24 | P.PN ---
Subjective Progress Note Date: 05/20/24 Principal diagnosis: Carotid stenosis Patient seen and examined as a follow-up for possible stroke and carotid stenosis. No acute changes through the night. No new focal deficits. She is status post tPA. Brain MRI reports acute/subacute ischemia within the posterior aspect of the left caudate nucleus body and left splenium of the corpus callosum. Similar mild to moderate nonspecific white matter changes, likely related to small vessel ischemic disease. She also had a repeat brain CT reporting moderate patchy burden of chronic small vessel ischemic disease. Hypodensity along the left basal ganglia and splenium of the left corpus callosum minimally more pronounced. Corresponding to the site of acute/subacute infarct on MRI earlier today. No hemorrhagic transformation. Echocardiogram reports mild to moderate concentric LVH. Mild right ventricular prominence. Moderate dilation of both atria. Heavy mitral annular calcification with thickening of mitral valve leaflets and some calcific mild stenosis. Aortic valve reveals some sclerosis no restriction. Mild mitral and tricuspid regurgitation. No pericardial effusion. Possible fat. Saline contrast suggest a possible PFO Objective - Vital Signs Vital signs: Vital Signs Temp 97.6 F 05/20/24 08:00 Pulse 71 05/20/24 13:00 Resp 9 L 05/20/24 13:00 BP 162/67 05/20/24 13:00 Pulse Ox 98 05/20/24 13:00 FiO2 Intake & Output 05/19/24 05/20/24 05/20/24 18:59 06:59 18:59 Intake Total 765 1380 75 Output Total 250 625 175 Balance 515 755 -100 Weight 97.522 kg 107.7 kg Intake: IV 525 900 75 Sodium Chloride 0.9% 1, 525 900 75 000 ml @ 75 mls/hr IV . [id number] [facility] Rx#:[id number] Oral 240 480 Output: Urine 250 625 175 Other: Voiding Method Bedpan External Catheter External Catheter External Catheter # Bowel Movements 0 0 - Exam General appearance: The patient is alert, oriented, appears in no acute distress. Obese. HET: Head is normocephalic and atraumatic. Pupils are equal and reactive. Neck: Supple. No audible bruit. Heart: Regular. Lungs: Equal expansion, normal respiratory effort. Abdomen: Soft, nontender, nondistended. Extremities: Normal skin color and turgor. Palpable bilateral radial and DP pulses. Neurological: Patient is alert and oriented. Speech is fluent, answers question s appropriately. Right sided upper and lower extremity weakness. Appears to have a left facial droop with smile. - Labs CBC & Chem 7: 05/21/24 05:37 05/20/24 05:52 Labs: Abnormal Lab Results - Last 24 Hours (Table) 05/20/24 05/20/24 Range/Units 05:52 05:52 MCHC 30.3 L (31.0-37.0) g/dL Chloride 109 H (98-107) mmol/L BUN 21 H (7-17) mg/dL Creatinine 1.34 H (0.52-1.04) mg/dL Microbiology - Last 24 Hours (Table) 05/18/24 13:27 Urine Culture - Preliminary Urine,Voided Gram Neg Bacilli Assessment and Plan Assessment: 1. Right ICA stenosis 65%, left greater than 50% per CTA 2. Acute/subacute ischemic stroke within the posterior aspect of left caudate nucleus body and left splenium of the corpus callosum with symptoms of right sided weakness 3. Possible PFO reported on echocardiogram 4. Recent fall 5. Urinary tract infection 6. Hypertension 7. Dementia Plan: 1. Carotid duplex ordered and reviewed 2. Await further evaluation and recommendations from neurology 3. Patient is status post T.enecteplase 4. PT, OT, ST on consult 5. Recommend cardiology consultation to evaluate for PFO 6. Will get B/L LEvenous duplex 6. Further recommendations forthcoming based on clinical course Thank you for this consultation, we will follow along. The impression and plan of care has been dictated as directed. Dr. María Peña performed a history and examination of this patient, discussed the same with the dictator. I agree with the dictator's note ,documented as a scribe. Any additional findings or plans will be noted. I personally reviewed imaging and do believe there is greater than 50% stenosis of the left ICA. Await further recommendations and evaluations by cardiology, if no obvious findings and correlation to possible source of embolic stroke, will consider carotid intervention
--- NOTE | 2024-05-20 15:14 | P.PN ---
Subjective Progress Note Date: 05/20/24 I am following up with the patient and she continues to have right sided weakness. I personally spoke with the patient's daughter was at bedside and her sister via phone and it seems that the patient has early onset dementia as well as she has some developmental delay at baseline with underlying speech difficulty. Objective - Vital Signs Vital signs: Vital Signs Temp 97.6 F 05/20/24 08:00 Pulse 66 05/20/24 14:00 Resp 20 05/20/24 14:00 BP 164/70 05/20/24 14:00 Pulse Ox 97 05/20/24 14:00 FiO2 Intake & Output 05/19/24 05/20/24 05/20/24 18:59 06:59 18:59 Intake Total 765 1380 875 Output Total 250 625 675 Balance 515 755 200 Weight 97.522 kg 107.7 kg Intake: IV 525 900 375 Sodium Chloride 0.9% 1, 525 900 375 000 ml @ 75 mls/hr IV . [id number] [facility] Rx#:[id number] Oral 240 480 500 Output: Urine 250 625 675 Other: Voiding Method Bedpan External Catheter External Catheter External Catheter # Bowel Movements 0 0 - Exam General: Lying in bed and is not in acute distress. HENT: Supple neck. Neuro: Limited since patient has underlying dementia with speech difficulty. Patient is awake alert oriented to self. She is following simple commands. Limited language. The pupils are round about 4 mm and reactive to light. Visual gerard are full to confrontation. Extraocular movements intact no nystagmus. Normal facial sensation to touch. Patient does have mild left lower facial droop. No dysa rthria Tongue is midline moves [id number] with any difficulty Motor: Right upper extremity 4. Right lower extremity is 1-2 with multiple attempts. Left upper lower extremity is 5 out of 5. Sensation: She could not tell me if it feels normal to touch but it seems that she had normal painful stimuli bilaterally. Reflexes 2 positive throughout except for the left lower extremity is a 1 positive. Plantars are mute. Some of the work-up during this hospital visit conisted of: Lipid panel is triglycerides 94, cholesterol is 132, LDL 66 and HDL is 47. Hemoglobin A1c is 5.9. CT of the head is reported as similar mild ventriculomegaly likely due to central cerebral atrophy. Correlate with symptoms to exclude component of NPH. Mild to moderate patchy border of chronic small vessel ischemic disease. No acute intracranial abnormality seen. I personally reviewed the CT and agree there is no acute or subacute stroke. CTA neck: Atherosclerotic changes of bilateral carotid bifurcation this results moderate 65% proximal right ICA stenosis on the right and moderate just over 50% proximal left ICA stenosis on the left. No hemodynamically significant ICA stenosis identified. Anatomic variation with takeoff of the left vertebral artery directly from the aortic arch. CTA head: No large vessel intracranial arterial occlusion, significant stenosis or aneurysm changes seen 2D echo: Normal left ventricular size and stock function with mild to moderate concentric left ventricular hypertrophy. Mild right ventricular prominence. Moderate dilation of both atria. There is heavy mitral annular calcification with thickening of mitral valve leaflets and some calcific mild stenosis. Aortic valve reveals some sclerosis no restriction. Saline contrast suggested possible PFO Carotid Duplex is reported as some elevation in velocity but with proximal right ICA indicating moderate 50 to 69% stenosis. No hemodynamically significant internal carotid artery stenosis on either side. MRI of the brain is reported as acute/subacute ischemic within the posterior aspect of the left caudate nucleus body in the left splenium of the corpus callosum. 24-hour post IV TNK is reported as moderate patchy burden of chronic small vessel ischemic disease. Hypodensity along the left basal ganglia and splenium of the left corpus callosum minimally more pronounced corresponding to the site of acute/subacute infarct on MRI earlier today. No hemorrhagic transformation - Labs CBC & Chem 7: 05/20/24 05:52 05/20/24 05:52 Labs: Abnormal Lab Results - Last 24 Hours (Table) 05/20/24 05/20/24 Range/Units 05:52 05:52 MCHC 30.3 L (31.0-37.0) g/dL Chloride 109 H (98-107) mmol/L BUN 21 H (7-17) mg/dL Creatinine 1.34 H (0.52-1.04) mg/dL Microbiology - Last 24 Hours (Table) 05/18/24 13:27 Urine Culture - Preliminary Urine,Voided Gram Neg Bacilli Assessment and Plan Assessment: This is a 69-year-old woman present emergency department on 05/18/2024 because of a fall the night prior. Seems the patient has recurrent falls. This hospital visit seems to the patient has probable acute urinary tract infection. Today it was noted the patient had right sided weakness and left facial droop upon being evaluated by physical therapy around 10-magaly a.m. and last normal reported around 8-magaly a.m. by resident from primary team. Acute right sided weakness (predominately right lower >> upper) as well as left facial droop is likely acute ischemic stroke status post IV TNK. Her initial NIH stroke scale was a 7 and the repeat was a 5. MRI Brain reveals acute/subacute ischemic within the posterior aspect of the left caudate nucleus body in the left splenium of the corpus callosum. Unknown exact. No afib or flutter. Has possible PFO on 2D echo. Right ICA stenosis of about 65% and left ICA of 50% on CT angiography but rodriguez tid duplex right is 50-69% and that seems asymptomatic. While on left ICA on duplex is no hemodynamically significant stenosis which is discordant on both imaging. Acute urinary tract infection Recurrent falls Underlying history of dementia and per the resident from primary team he states the patient confabulates at baseline Underlying history of developmentally delayed Hypothyroidism Diabetes mellitus Plan: Repeat CT head is negative for bleed. She was resumed on ASA 81mg daily by primary team. I also added Plavix 75mg daily. Continue Lipitor 40 mg daily. I consulted cardiology team for possible PFO and for DANYA. Recommend 30 days event monitor. Continue neurochecks Cardiac monitoring PT OT and WEBSITE PROJECT MANAGER are consulted I consulted vascular surgery team for the carotid stenosis Will defer the rest of the medical management to primary and other specialist For DVT prophylaxis: started on subq heparin 5000 unit every 12 hours. Plan discussed with her daughter who is at bedside, sister via phone and her nurse. UPDATED: I spoke with the vascular surgeon (Dr. Liao) team and she stated she think right ICA is greater than 50% stenosis and if DANYA is unremarkable she would like to consider intervention. Time with Patient: Less than 30
--- NOTE | 2024-05-20 15:34 | P.PN ---
Subjective Progress Note Date: 05/20/24 This is a 69-year-old female patient was brought into the intensive. Receiving thrombolytics for new onset right-sided weakness and left facial droop. The patient is not have dementia. She is known to have diabetes mellitus with chronic kidney disease. She is also known to have hypertension hyperlipidemia. She has been having episodes of falls and earlier this morning, the patient was noted to have right-sided weakness. CT scan of the head showed mild ventriculomegaly and cerebral atrophy. Chronic small vessel ischemic changes. CTA of the neck showed 65% proximal right ICA and 50% proximal left ICA and the carotid Doppler showed no significant hemodynamically stenosis of the carotids. CTA of the head and neck showed no large vessel intracranial arterial occlusion. Initial NIH score was 7. The patient was given TNK and following that she was admitted to the intensive care unit. Motor function in the right upper extremity is adequate. There is some ongoing weakness in the right lower extremity. She is awake alert and communicating. Family at the bedside. No vision changes. No headaches. No seizure activity. She has been found to have UTI and currently the patient is on IV Rocephin. Afebrile and hemodynamically stable. Normal coagulation profile. Creatinine is at 1.4 consistent with chronic kidney disease with a GFR of 32. Hemoglobin is at 12.8. On 05/20/2024, the patient is being seen for a follow-up. The patient is status post TNK for an acute CVA. She remains awake and alert. No headaches. No altered mentation. Significant weakness in the right lower extremity. Motor function is improved in the right upper extremity which is estimated to be around 4 out of 5. No significant facial asymmetry. Able to swallow. A follow-up CAT scan of the brain was done today and it shows no evidence of any bleeds. There is moderate patchy burden of chronic small vessel ischemic disease along with hypodensity along the left basal ganglia may suggest an acute/subacute infarct. There is also abnormalities in the left corpus callosum. Hemodynamically stable. No significant hypotension. The white cell count of 9.7, hemoglobin 12.3, platelet count is 219. Creatinine is 1.3 with a BUN of 21. LDL cholesterol is 66. HbA1c was at 5.9. Objective - Vital Signs Vital signs: Vital Signs Temp 97.6 F 05/20/24 08:00 Pulse 76 05/20/24 09:00 Resp 11 L 05/20/24 09:00 BP 140/94 05/20/24 09:00 Pulse Ox 96 05/20/24 09:00 FiO2 Intake & Output 05/19/24 05/20/24 05/20/24 18:59 06:59 18:59 Intake Total 765 1380 75 Output Total 250 625 175 Balance 515 755 -100 Weight 97.522 kg 107.7 kg Intake: IV 525 900 75 Sodium Chloride 0.9% 1, 525 900 75 000 ml @ 75 mls/hr IV . [id number] [facility] Rx#:[id number] Oral 240 480 Output: Urine 250 625 175 Other: Voiding Method Bedpan External Catheter External Catheter External Catheter # Bowel Movements 0 0 - Exam General: Lying in bed and is not in acute distress. Patient has a BMI of 34.7. Currently on room air oxygen. Head exam was generally normal. There was no scleral icterus or corneal arcus. Mucous membranes were moist. Neck was supple and without jugular venous distension, thyromegaly, or carotid bruits. Carotids were easily palpable bilaterally. There was no adenopathy. Lungs were clear to auscultation and percussion, and with normal diaphragmatic excursion. No wheezes or rales were noted. Cardiac exam revealed the PMI to be normally situated and sized. The rhythm was regular and no extrasystoles were noted during several minutes of auscultation. The first and second heart sounds were normal and physiologic splitting of the second heart sound was noted. There were no murmurs, rubs, clicks, or gallops. Abdominal exam revealed normal bowel sounds. The abdomen was soft, non-tender, and without masses, organomegaly, or appreciable enlargement of the abdominal aorta. Examination of the extremities revealed easily palpable radial, femoral and pedal pulses. There was no cyanosis, clubbing or edema. Examination of the skin revealed no evidence of significant rashes, suspicious appearing nevi or other concerning lesions. Neurologic examination is limited since patient has underlying dementia. Patient is awake alert oriented to self. She is following simple commands. No aphasia from limited language The pupils are round about 4 mm and reactive to light. Visual gerard are full to confrontation. Extraocular movements intact no nystagmus. Normal facial sensation to touch. Patient does have mild left lower facial droop. No dysarthria Tongue is midline moves [id number] with any difficulty Motor: Right upper extremity right arm extension patient has about a 3 right hand hospital secretary is 3-4. Patient does have her right upper extremity drift. Left arm flexion is about a 4 -. Right lower extremity is 0-1. Left upper lower extremity is 5 out of 5. Sensation: She could not tell me if it feels normal to touch but it seems that she had normal painful stimuli bilaterally. Reflexes 2 positive throughout except for the left lower extremity is a 1 positive. - Labs CBC & Chem 7: 05/20/24 05:52 05/20/24 05:52 Labs: Abnormal Lab Results - Last 24 Hours (Table) 05/19/24 05/19/24 05/19/24 Range/Units 10:16 10:16 10:56 WBC 11.3 H (3.8-10.6) k/uL MCHC (31.0-37.0) g/dL Neutrophils # 8.1 H (1.3-7.7) k/uL Chloride (98-107) mmol/L BUN 26 H (7-17) mg/dL Creatinine 1.64 H (0.52-1.04) mg/dL Glucose 113 H (74-99) mg/dL POC Glucose (mg/dL) 121 H (70-110) mg/dL AST 44 H (14-36) U/L 05/20/24 05/20/24 Range/Units 05:52 05:52 WBC (3.8-10.6) k/uL MCHC 30.3 L (31.0-37.0) g/dL Neutrophils # (1.3-7.7) k/uL Chloride 109 H (98-107) mmol/L BUN 21 H (7-17) mg/dL Creatinine 1.34 H (0.52-1.04) mg/dL Glucose (74-99) mg/dL POC Glucose (mg/dL) (70-110) mg/dL AST (14-36) U/L Microbiology - Last 24 Hours (Table) 05/18/24 13:27 Urine Culture - Preliminary Urine,Voided Gram Neg Bacilli Assessment and Plan Plan: Acute CVA with right-sided weakness and left facial droop, status post TNK treatment. Initial NIH score was 7. CT scan of the brain showed cerebral atrophy and CT angiogram of the brain showed no intracranial vascular abnormalities and the patient has bilateral carotid artery disease, 65% on the right ICA and 50% of the left. Follow-up CAT scan of the brain showed no acute hemorrhage. Changes in the left corpus callosum and basal ganglia indicating acute/subacute infarct. Neurologically unchanged compared to yesterday. Bilateral carotid artery disease Dementia Diabetes mellitus type 2 Chronic kidney disease Hypothyroidism Hypertension UTI, currently on IV Rocephin Plan Monitor neurological functions Follow-up CAT scan of the brain was noted MRI of the brain for later stage Neurology consultation is appreciated Start aspirin Monitor blood pressure and keep the systolic blood pressure above 140 and below 180 and avoid any significant hypotension Cardiac rhythm is sinus Obtain echocardiogram is pending healthcare representative Vascular consultation Rocephin for gram-negative urine tract infection May transfer out of the intensive care unit.
--- NOTE | 2024-05-20 15:39 | US ---
EXAMINATION TYPE: US venous doppler duplex LE BI DATE OF EXAM: 05/20/2024 3:29 PM COMPARISON: NONE CLINICAL INDICATION: Female, 69 years old with history of Lower extremity swelling; very mild swellin g, h/o DVT in left leg, patient "thinks" years ago TECHNIQUE: The lower extremity deep venous system is examined utilizing real time linear array sonog heath with graded compression, color doppler sonography, and spectral doppler. SIDE PERFORMED: Bilateral FINDINGS: VESSELS IMAGED: Common Femoral Vein Deep Femoral Vein Greater Saphenous Vein * Femoral Vein Popliteal Vein Small Saphenous Vein * Proximal Calf Veins (* superficial vessels) Front Man notes: Could not obtain bilateral femoral vein compression images because patient said they were too painful and would tighten thigh - good color flow with doppler bilaterally Right Leg: Negative for DVT, Color Doppler imaging shows patency of the vessels. Spectral waveforms are within normal limits. There is an elongated 3.6 x 3.4 x 0.7 cm popliteal cyst on the right. Left Leg: Negative for DVT, Color Doppler imaging shows patency of the vessels. Spectral waveforms a re within normal limits. Doshi's cyst measuring 4.5 x 3.6 by 1.1 cm containing some internal debris o r 6 mm loose body. IMPRESSION: 1. Some limitation noted by the admin prog coord as above. No visualized DVT within either lower extremity imaged from the groin to the upper calf. 2. Bilateral small Doshi's cysts measuring up to 4.5 cm. [facility], , 05/20/2024 3:36 PM
--- NOTE | 2024-05-20 16:29 | P.PN ---
Subjective Progress Note Date: 05/20/24 History of present illness; Patient is a 69-year-old female with a past medical history significant for pio betes mellitus, thyroid disorder. She presented to the emergency department after falling at home. She states that she has frequent falls, with the most recent one being last night which brought her to the emergency department today. She states that she was in her apartment and attempting to clean her apartment, at that time she states that she lost her footing and fell on her left side. She states that she did not hit her head, however she does attest to having felt some dizziness prior to falling. She was found on the ground by her son-in-law, and she is unsure of how long she was on the ground for but believes it to be at least 2 hours stating that she was too weak to get herself up. She has no acute pain anywhere on her body, however notes some generalized soreness in her lower extremities and her right shoulder. She lives alone and states that she is able to handle most activities of daily living by herself. She states that she has not taken any anticoagulation medications. 05/19/24 - Patient seen and examined at bedside. She had no events overnight, stated she was feeling better. With no acute complaints. Was contacted by the nurse at approximately 10:45 AM noting there was new onset weakness in the patient's right side, asking if this was new compared to yesterd ay when the patient was previously seen. Went down and saw the patient in the observation unit to assess, her right arm was in decerebrate positioning and noted she had an inability to move right lower extremity, drift when extending her right upper extremity. Additionally, patient was noted to have left-sided facial droop, as well as left-sided deviation of the tongue when protruding. During this time she was able to fully converse and answer questions appropriately, although maintaining her circumstantial speech as well as confabulation. At that time code stroke was called. 05/20/24 - Patient seen and examined at bedside this morning, remaining in the ICU for close monitoring. She states she is feeling better than yesterday. Notes increased ability to move her right upper and lower extremity. It has been noted by the nursing staff that she has intermittent moments of the ability to have function of her right lower extremity. She has no acute complaints at this time and states that the suprapubic tenderness she had been experiencing has resolved. PHYSICAL EXAMINATION: GENERAL: The patient is alert and oriented x3, with circumstantial speech with confabulation HEENT: Pupils are round and equally reacting to light. EOMI. No scleral icterus. No conjunctival pallor. CARDIOVASCULAR: S1 and S2 present. No murmurs, rubs, or gallops. PULMONARY: Chest is clear to auscultation, no wheezing or crackles. ABDOMEN: Soft, nontender, nondistended, normoactive bowel sounds. No palpable organomegaly. MUSCULOSKELETAL: No joint swelling or deformity. EXTREMITIES: No cyanosis, clubbing, or pedal edema. 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 New data today: Labs: WBCs 9.7, hemoglobin 12.3, hematocrit 40.4, platelet 219; sodium 139, potassium 4.4, BUN 21, creatinine 1.34 Imaging: -Carotid Doppler study completed on 05/19 showed some elevation in velocities in the proximal right ICA which indicate moderate (50 to 69%) stenosis, without hemodynamically significant internal carotid artery stenosis on either side. -Brain MRI showed acute/subacute ischemia within the posterior aspect of the left caudate nucleus body and left splenium of the corpus callosum; similar mild to moderate nonspecific white matter changes, likely related small vessel ischemic disease -Repeat CT head done this morning completed showed no evidence of any bleed; moderate patchy burden of chronic small vessel ischemic disease along with hypodensity along the left basal ganglia which may suggest an acute/subacute infarct. Assessment and plan 69-year-old female with PMH of diabetes mellitus, thyroid disorder. Presents emergency department following a fall at home in which she notes to having some dizziness prior to falling. #New onset right-sided weakness #History of previous stroke ~30 years ago -Last known normal ~7:30-8:00 am -~10:45 a.m. patient was noted to have weakness of her right lower extremity -Code stroke called -CT brain completed, read and reviewed -CT angiography head/neck read and reviewed -Carotid Doppler read and reviewed -MRI brain w/o contrast completed, read and reviewed -Repeat CT brain (05/20/2024) completed, read and reviewed -Patient received TNK 24.5 mg IV push once -Initiated aspirin 325 mg once this morning (05/19/2024) -Continue with aspirin 81 mg daily -Per neurology recommendation patient started on Plavix 75 mg daily -Initiated 40 mg Lipitor daily -Continue neurochecks -Triglycerides 94.7, cholesterol 132, LDL 66, VLDL 18.94, HDL 47.10 -Hemoglobin A1c 5.9 -Review CBC and BMP -PT, OT, ST on consult -Cardiology consulted for possible PFO and for DANYA; per neurology's recommendation patient should be considered for 30-day event monitor -Per the neurology team, spoke with vascular surgery (Dr. Liao) and she states that it is possible of the right ICA is greater than 50% stenosed and if the DANYA is unremarkable, intervention may be considered. #Syncopy v Mechanical fall #Debility -Echocardiogram pending -Orthostatics pending -Cardiac monitoring -On Aricept, monitor for bradycardic episodes - if occurring, consider D/C #Complicated urinary tract infection (gram-negative negative bacilli) -WBC 13.6 with associated tenderness of the bladder -Urinalysis positive with nitrites and leukocyte Estrace -Urine culture pending -Patient will continue with Rocephin 1 g IVPB every 24 hours (day 3 of antibiotics); with symptom improvement within 48 hours, consider course of 5-10 days -Continue on NS 20 cc/h -Monitor CBC, BMP Chronic conditions: #Dementia - continue home medications #Hypothyroidism - Continue home medications #Chronic kidney disease stage IIIb GI prophylaxis: Not indicated DVT prophylaxis: Heparin 5000 units every 12 hours Dictation was produced using [employer] dictation software. please excuse any grammatical, word or spelling errors. I saw and evaluated the patient during the wise and critical portions of this encounter, and discussed the case in detail with the resident author of this note, I agree with the Assessment and Plan, and my changes, if any, are highlighted below. Patient was seen and examined. CBC and BMP significant for MCHC 30.3, Cl 109, BUN 21, Cr 1.34. MRI confirms CVA. Cardiology consulted to evaluate for PFO. Vascular surgery on board for carotid stenosis. ASA 81 mg PO QD. Plavix 75 mg PO QD. Lipitor 40 mg PO QD. Updated PCP Rivera POP SINGER with [facility]. Objective - Vital Signs Vital signs: Vital Signs Temp 98.0 F 05/20/24 04:00 Pulse 70 05/20/24 05:30 Resp 19 05/20/24 05:30 BP 163/70 05/20/24 05:30 Pulse Ox 99 05/20/24 05:30 FiO2 Intake & Output 05/19/24 05/19/24 05/20/24 06:59 18:59 06:59 Intake Total 765 1305 Output Total 250 450 Balance 515 855 Weight 97.522 kg 107.7 kg Intake: IV 525 825 Sodium Chloride 0.9% 1, 525 825 000 ml @ 75 mls/hr IV . [id number] [facility] Rx#:[id number] Oral 240 480 Output: Urine 250 450 Other: Voiding Method Bedpan External Catheter External Catheter # Bowel Movements 0 - Labs CBC & Chem 7: 05/20/24 05:52 05/20/24 05:52 Labs: Abnormal Lab Results - Last 24 Hours (Table) 05/19/24 05/19/24 05/19/24 Range/Units 10:16 10:16 10:56 WBC 11.3 H (3.8-10.6) k/uL Neutrophils # 8.1 H (1.3-7.7) k/uL BUN 26 H (7-17) mg/dL Creatinine 1.64 H (0.52-1.04) mg/dL Glucose 113 H (74-99) mg/dL POC Glucose (mg/dL) 121 H (70-110) mg/dL AST 44 H (14-36) U/L Microbiology - Last 24 Hours (Table) 05/18/24 13:27 Urine Culture - Preliminary Urine,Voided Gram Neg Bacilli
[2024-05-20] MEDS: CLOPIDOGREL 75 MG TAB PO SCH (16:54)
[2024-05-20 20:38] LABS: Glucose,Whole Blood 149 mg/dL (70-110)
[2024-05-20] MEDS: SODIUM CHLORIDE 0.9% 1,000 ML IV SCH (20:45)
[2024-05-20] MEDS: ENOXAPARIN 40 MG/0.4 ML SYRINGE SQ SCH (20:45)
[2024-05-20] MEDS: ASPIRIN 325 MG TAB PO STA (20:46)
[2024-05-20] MEDS: HEPARIN SODIUM,PORCINE 5,000 UNIT/ML 1 ML VIAL SQ SCH (20:57)
[2024-05-21] MEDS: ERTAPENEM 1 GM in SODIUM CHLORIDE 0.9% 50 ML IVPB STA (00:04)
[2024-05-21 06:12] LABS: Glucose,Whole Blood 123 mg/dL (70-110)
[2024-05-21 07:13] LABS: Basophils % (A) 0 %; Eosinophils # (A) 0.3 k/uL (0-0.7); Eosinophils % (A) 3 %; HGB 11.9 gm/dL (11.4-16.0); Hypochromasia Slight; Lymphocytes # (A) 1.7 k/uL (1.0-4.8); Lymphocytes % (A) 16 %; MCH 27.9 pg (25.0-35.0); MCHC 31.4 g/dL (31.0-37.0); MCV 88.9 fL (80.0-100.0); Mean Platelet Volume 7.9; Monocytes # (A) 0.6 k/uL (0-1.0); Monocytes % (A) 6 %; Neutrophils # (A) 7.6 k/uL (1.3-7.7); Neutrophils % (A) 73 %; Platelet Count 223 k/uL (150-450); RBC 4.27 m/uL (3.80-5.40); RDW 13.7 % (11.5-15.5); WBC 10.4 k/uL (3.8-10.6)
[2024-05-21] MEDS ORDERED: MIDAZOLAM 2 MG/2 ML VIAL IV PRN (08:30)
[2024-05-21] MEDS ORDERED: BENZOCAINE SPRAY 1 CAN TOPICAL PRN (08:30)
[2024-05-21] MEDS ORDERED: fentaNYL (PF) 50 MCG/ML 2 ML AMP IVP PRN (08:30)
[2024-05-21 09:12] LABS: African American GFR (CKD) 49 (>60 ml/min/1.73 sqM); Anion Gap 7 mmol/L; Blood Urea Nitrogen 18 mg/dL (7-17); Carbon Dioxide 24 mmol/L (22-30); Chloride 108 mmol/L (98-107); Glucose 118 mg/dL (74-99); Non-African American GFR(CKD) 42 (>60 ml/min/1.73 sqM); Potassium 4.4 mmol/L (3.5-5.1); Sodium 139 mmol/L (137-145)
--- NOTE | 2024-05-21 09:24 | P.PN ---
Subjective Progress Note Date: 05/21/24 Principal diagnosis: Carotid stenosis Patient seen and examined today as a follow-up. Brain MRI did show acute/subacute ischemia within the posterior aspect of the left caudate nucleus body and left splenium of the corpus callosum. She had a repeat CT of the brain as well with the no new findings and no hemorrhage. She remains on aspirin and Plavix. She continues to have right sided weakness. No new focal deficits reported. Lower extremity venous duplex negative for bilateral lower extremity DVTs. Cardiology on consult for cardiology workup and surgical clearance. Objective - Vital Signs Vital signs: Vital Signs Temp 97.5 F L 05/20/24 23:30 Pulse 93 05/21/24 04:00 Resp 20 05/21/24 04:00 BP 158/69 05/21/24 04:00 Pulse Ox 98 05/21/24 04:00 FiO2 Intake & Output 05/20/24 05/21/24 05/21/24 18:59 06:59 18:59 Intake Total 875 Output Total 675 1000 Balance 200 -1000 Intake: IV 375 Sodium Chloride 0.9% 1, 375 000 ml @ 75 mls/hr IV . [id number] [facility] Rx#:[id number] Oral 500 Output: Urine 675 1000 Other: Voiding Method External Catheter External Catheter # Voids 1 # Bowel Movements 0 0 2 - Exam General appearance: The patient is alert, oriented, appears in no acute distress. Obese. HET: Head is normocephalic and atraumatic. Pupils are equal and reactive. Neck: Supple. No audible bruit. Heart: Regular. Lungs: Equal expansion, normal respiratory effort. Abdomen: Soft, nontender, nondistended. Extremities: Normal skin color and turgor. Palpable bilateral radial and DP pulses. Neurological: Patient is alert and oriented. Speech is fluent, answers questions appropriately. Right sided upper and lower extremity weakness. Appears to have a left facial droop with smile. - Labs CBC & Chem 7: 05/21/24 05:37 05/21/24 05:37 Labs: Abnormal Lab Results - Last 24 Hours (Table) 05/20/24 05/21/24 Range/Units 20:36 06:08 POC Glucose (mg/dL) 149 H 123 H (70-110) mg/dL Microbiology - Last 24 Hours (Table) 05/18/24 13:27 Urine Culture - Final Urine,Voided Klebsiella pneumo ESBL MDRO Assessment and Plan Assessment: 1. Symptomatic left ICA stenosis, greater than 50% 2. Acute/subacute ischemic stroke within the posterior aspect of left caudate nucleus body and left splenium of the corpus callosum with symptoms of right sided weakness 3. Possible PFO reported on echocardiogram 4. Recent fall 5. Urinary tract infection 6. Hypertension 7. Dementia Plan: 1. Carotid duplex ordered and reviewed 2. Neurology on consultation, appreciate their recommendations 3. Patient is status post T.enecteplase 4. PT, OT, ST on consult 5. Cardiology on consultation to evaluate for PFO, will need cardiac clearance for left TCAR, possible carotid endarterectomy 6. Lower extremity venous duplex negative for DVT 6. Further recommendations forthcoming based on clinical course Thank you for this consultation, we will follow along. The impression and plan of care has been dictated as directed. Dr. María Peña performed a history and examination of this patient, discussed the same with the dictator. I agree with the dictator's note ,documented as a scribe. Any additional findings or plans will be noted.
--- NOTE | 2024-05-21 11:05 | P.PN ---
Progress Note - Text Patient admitted with a definite CVA confirmed by follow-up brain CT and with MRI DANYA being performed in the presence of sinus rhythm to evaluate the degree of mitral stenosis, given the increased thromboembolic risk in moderate and severe mitral stenosis Valve appears calcific/degenerative on transthoracic echo
[2024-05-21 11:27] LABS: Glucose,Whole Blood 132 mg/dL (70-110)
--- NOTE | 2024-05-21 12:07 | P.CRDCN ---
History of Present Illness Consult date: 05/21/24 Reason for Consult (text): DANYA, event monitor History of present illness: This is a 69-year-old female with no previous cardiac history. She has a past medical history of dementia, developmentally delayed, hypertension, hypothyroidism. We have been asked to evaluate the patient for DANYA and event monitor. Patient presented to the hospital due to right sided weakness and facial droop and has been diagnosed with an acute ischemic stroke status post IV TNK. There was also concern for possible PFO on echocardiogram. Patient was found to have rites ICA stenosis of 65% and left at 50% on CT angiogram he. Vascular surgery is on consult and planning for left TCAR or possible carotid endarterectomy on Saturday. Blood pressure 179/77, heart rate 77, pulse ox 100% on room air. Patient has been started on aspirin, Lipitor, Plavix. Patient is also on IV antibiotics for UTI. -EKG: Sinus rhythm with no acute ST-T wave changes. -Laboratory studies: CBC normal. BUN 18 and creatinine 1.29. Triglycerides 94, cholesterol 132, LDL 66, HDL 47 -Home cardiac medications: Lisinopril 20 mg daily. -Echocardiogram reveals EF 55 to 60% with moderate concentric LVH. Heavy annular calcification and thickening of the mitral valve leaflets with some calcific mild stenosis. Aortic valve reveals some sclerosis no restriction. Mild mitral and tricuspid regurgitation. No pericardial effusion. Saline contrast suggest possible PFO. Review Of Systems: At the time of my exam: CONSTITUTIONAL: Denies fever or chills. Right sided weakness HEENT: Denies blurred vision, vision changes, or eye pain. Denies hemoptysis CARDIOVASCULAR: Denies chest pain. Denies orthopnea. Denies PND. Denies palpitations RESPIRATORY: Denies shortness of breath. GASTROINTESTINAL: Denies abdominal pain. Denies nausea or vomiting. HEMATOLOGIC: Denies bleeding disorders. GENITOURINARY: Denies any blood in urine. SKIN: Denies puritis. Denies rash. Physical examination: Gen: This is a 69-year-old female in no acute distress VS: reviewed HEENT: Head is atraumatic, normocephalic. Pupils equal, round. Sclerae is anicteric. NECK: Supple. No JVD. LUNGS: Clear to auscultation. No wheezes or rhonchi. No intercostal retractions. HEART: Regular rate and rhythm. No murmur. ABDOMEN: Soft No tenderness. EXTREMITIES: No pedal edema. No calf tenderness. NEUROLOGICAL: Patient is awake, alert. Assessment: Abnormal echocardiogram Embolic stroke Mitral stenosis dementia Developmentally delayed Hypertension Hypothyroidism Plan: Continue current cardiac medications Schedule patient for DANYA Saturday with Dr. Kat to evaluate calcific mitral valve and also evaluate for PFO Further recommendations to follow based upon clinical course Thank you kindly for this consultation. Nurse practitioner note has been reviewed, I agree with documented findings and plan of care. Patient was seen and examined. Past Medical History Past Medical History: Dementia, Diabetes Mellitus, Eye Disorder, Hypertension, Renal Disease, Thyroid Disorder Additional Past Medical History / Comment(s): blood in urine noticed by daughter 1 year 2023, but never followed up w/dr. History of Any Multi-Drug Resistant Organisms: ESBL Date of last positivie culture/infection: 05/18/24 MDRO Source:: urine Additional Past Surgical History / Comment(s): rt eye catartact removal and implant Past Anesthesia/Blood Transfusion Reactions: No Reported Reaction Past Psychological History: No Psychological Hx Reported Smoking Status: Never smoker Past Alcohol Use History: None Reported Past Drug Use History: None Reported, Marijuana Medications and Allergies Home Medications Medication Instructions Recorded Confirmed Type ARIPiprazole [Abilify] 2 mg PO DAILY 05/18/24 05/18/24 History Donepezil [Aricept] 10 mg PO HS 05/18/24 05/18/24 History Ergocalciferol (Vitamin D2) 1,250 mcg PO Q7D 05/18/24 05/18/24 History [Drisdol (50,000 Iu)] Levothyroxine Sodium [Synthroid] 25 mcg PO DAILY 05/18/24 05/18/24 History Mirtazapine [Remeron] 15 mg PO HS 05/18/24 05/18/24 History Triamcinolone 0.1% Ointment 1 applic TOPICAL TID 05/18/24 05/18/24 History [Kenalog 0.1% Ointment] lisinopriL [Zestril] 20 mg PO DAILY 05/18/24 05/18/24 History metFORMIN HCL [Glucophage] 500 mg PO BID 05/18/24 05/18/24 History ondansetron HCL [Ondansetron HCl] 8 mg PO TID PRN 05/18/24 05/18/24 History Allergies Allergy/AdvReac Type Severity Reaction Status Date / Time No Known Allergies Allergy Verified 05/18/24 16:16 Physical Exam Vitals: Vital Signs Temp Pulse Pulse Resp BP BP Pulse Ox 05/21/24 04:00 93 20 158/69 98 05/20/24 23:30 97.5 F L 82 20 148/72 100 05/20/24 20:40 97.4 F L 61 20 160/67 98 05/20/24 20:00 97.9 F 75 20 151/57 96 05/20/24 16:00 97.7 F 76 17 152/90 97 05/20/24 14:00 66 20 164/70 97 05/20/24 13:00 71 9 L 162/67 98 05/20/24 12:00 67 17 143/49 97 05/20/24 11:00 64 13 158/71 94 L 05/20/24 10:51 68 17 158/71 95 05/20/24 09:00 76 11 L 140/94 96 05/20/24 08:30 70 14 138/123 99 Intake and Output 05/20/24 05/21/24 05/21/24 22:59 06:59 14:59 Output Total 1000 Balance -1000 Output: Urine 1000 Other: Voiding Method External Catheter External Catheter # Voids 1 # Bowel Movements 0 Results 05/21/24 05:37 05/21/24 05:37 Lipids 05/20/24 Range/Units 05:52 Triglycerides 94.70 (0.00-149.00) mg/dL Cholesterol 132.00 (0.00-200.00) mg/dL HDL Cholesterol 47.10 (40.00-60.00) mg/dL Cholesterol/HDL Ratio 2.80 Ratio CBC 05/21/24 Range/Units 05:37 WBC 10.4 (3.8-10.6) k/uL RBC 4.27 (3.80-5.40) m/uL Hgb 11.9 (11.4-16.0) gm/dL Hct 38.0 (34.0-46.0) % Plt Count 223 (150-450) k/uL Current Medications Generic Name Dose Route Start Last Admin Trade Name Freq PRN Reason Stop Dose Admin Acetaminophen 650 mg 05/18/24 15:35 05/20/24 14:00 Acetaminophen Tab 325 Mg Tab PO 650 mg Q6HR PRN Administration Mild Pain or Fever > 100.5 Aripiprazole 2 mg 05/19/24 09:00 05/20/24 08:50 Aripiprazole 2 Mg Tab PO 2 mg DAILY CHRISTOPHE Administration Aspirin 81 mg 05/20/24 10:15 05/20/24 14:00 Aspirin 81 Mg PO 81 mg DAILY CHRISTOPHE Administration Atorvastatin Calcium 40 mg 05/19/24 11:30 05/20/24 08:50 Atorvastatin 40 Mg Tab PO 40 mg DAILY CHRISTOPHE Administration Clopidogrel Bisulfate 75 mg 05/20/24 15:15 05/20/24 16:54 Clopidogrel 75 Mg Tab PO 75 mg DAILY CHRISTOPHE Administration Dextrose/Water 25 ml 05/20/24 09:37 Dextrose 50% Syringe 50 Ml IVP PER PROTOCOL PRN Hypoglycemia Protocol Dextrose/Water 50 ml 05/20/24 09:37 Dextrose 50% Syringe 50 Ml IVP PER PROTOCOL PRN Hypoglycemia Protocol Donepezil HCl 10 mg 05/18/24 21:00 05/20/24 20:57 Donepezil 10 Mg Tab PO 10 mg HS CHRISTOPHE Administration Heparin Sodium (Porcine) 5,000 unit 05/20/24 21:00 05/20/24 20:57 Heparin Sodium,Porcine 5,000 Unit/Ml 1 Ml Vial SQ 5,000 unit Q12HR CHRISTOPHE Administration Sodium Chloride 1,000 mls @ 20 mls/hr 05/20/24 10:15 05/20/24 20:45 Saline 0.9% IV Not Given .Q24H CHRISTOPHE Ertapenem 1 gm/ Sodium 50 mls @ 100 mls/hr 05/21/24 22:00 Chloride IVPB Q24H [facility] Protocol Insulin Aspart 0 unit 05/20/24 12:30 05/21/24 06:22 Insulin Aspart (Novolog) 100 Unit/Ml Vial SQ Not Given ACHS [facility] Protocol Labetalol HCl 20 mg 05/19/24 16:04 Labetalol 5 Mg/Ml Vial Mdv IVP Q10M PRN Blood Pressure - High Levothyroxine Sodium 25 mcg 05/19/24 06:30 05/21/24 06:45 Levothyroxine 25 Mcg Tab PO 25 mcg DAILY@0630 CHRISTOPHE Administration Mirtazapine 15 mg 05/18/24 21:00 05/20/24 20:57 Mirtazapine 15 Mg Tab PO 15 mg HS CHRISTOPHE Administration Naloxone HCl 0.2 mg 05/18/24 15:35 Naloxone 0.4 Mg/Ml 1 Ml Vial IV Q2M PRN Opioid Reversal Intake and Output 05/20/24 05/21/24 05/21/24 22:59 06:59 14:59 Output Total 1000 Balance -1000 Output: Urine 1000 Other: Voiding Method External Catheter External Catheter # Voids 1 # Bowel Movements 0 05/21/24 05:37 05/20/24 05:52
--- NOTE | 2024-05-21 12:58 | P.PN ---
Subjective Progress Note Date: 05/21/24 History of present illness; Patient is a 69-year-old female with a past medical history significant for pio betes mellitus, thyroid disorder. She presented to the emergency department after falling at home. She states that she has frequent falls, with the most recent one being last night which brought her to the emergency department today. She states that she was in her apartment and attempting to clean her apartment, at that time she states that she lost her footing and fell on her left side. She states that she did not hit her head, however she does attest to having felt some dizziness prior to falling. She was found on the ground by her son-in-law, and she is unsure of how long she was on the ground for but believes it to be at least 2 hours stating that she was too weak to get herself up. She has no acute pain anywhere on her body, however notes some generalized soreness in her lower extremities and her right shoulder. She lives alone and states that she is able to handle most activities of daily living by herself. She states that she has not taken any anticoagulation medications. 05/19/24 - Patient seen and examined at bedside. She had no events overnight, stated she was feeling better. With no acute complaints. Was contacted by the nurse at approximately 10:45 AM noting there was new onset weakness in the patient's right side, asking if this was new compared to yesterd ay when the patient was previously seen. Went down and saw the patient in the observation unit to assess, her right arm was in decerebrate positioning and noted she had an inability to move right lower extremity, drift when extending her right upper extremity. Additionally, patient was noted to have left-sided facial droop, as well as left-sided deviation of the tongue when protruding. During this time she was able to fully converse and answer questions appropriately, although maintaining her circumstantial speech as well as confabulation. At that time code stroke was called. 05/20/24 - Patient seen and examined at bedside this morning, remaining in the ICU for close monitoring. She states she is feeling better than yesterday. Notes increased ability to move her right upper and lower extremity. It has been noted by the nursing staff that she has intermittent moments of the ability to have function of her right lower extremity. She has no acute complaints at this time and states that the suprapubic tenderness she had been experiencing has resolved. 05/21/24 - Patient seen and examined at bedside this morning, she was moved out of the ICU yesterday afternoon and is now on cardiac step down, 3 south. States she is feeling better this morning than she had been. Has no acute complaints at this time. PHYSICAL EXAMINATION: GENERAL: The patient is alert and oriented x3, with circumstantial speech with confabulation HEENT: Pupils are round and equally reacting to light. EOMI. No scleral icterus. No conjunctival pallor. CARDIOVASCULAR: S1 and S2 present. No murmurs, rubs, or gallops. PULMONARY: Chest is clear to auscultation, no wheezing or crackles. ABDOMEN: Soft, nontender, nondistended, normoactive bowel sounds. No palpable organomegaly. MUSCULOSKELETAL: No joint swelling or deformity. EXTREMITIES: No cyanosis, clubbing, or pedal edema. NEUROLOGICAL: Some mobility of the right lower extremity restored, able to wiggle her toes and move her foot at the ankle and plantar and dorsi flexion; drift with extension of right upper extremity; right upper extremity noted to be into 3 repositioning; nursing informatics specialist strength on the right side improved as compared to yesterday; left sided facial droop and tongue deviation SKIN: No rashes. New data today: Labs: WBCs 10.4, Hgb 11.9, hematocrit 38.0, platelet 223 Urine culture: Grew ESBL MDRO Klebsiella pneumonia with a resistance to ceftriaxone (along with multiple other drugs) Assessment and plan 69-year-old female with PMH of diabetes mellitus, thyroid disorder. Presents emergency department following a fall at home in which she notes to having some dizziness prior to falling. #New onset right-sided weakness #History of previous stroke ~30 years ago -Last known normal ~7:30-8:00 am -~10:45 a.m. patient was noted to have weakness of her right lower extremity -Code stroke called -CT brain completed, read and reviewed -CT angiography head/neck read and reviewed -Carotid Doppler read and reviewed -MRI brain w/o contrast completed, read and reviewed -Repeat CT brain (05/20/2024) completed, read and reviewed -Patient received TNK 24.5 mg IV push once -Initiated aspirin 325 mg once this morning (05/19/2024) -Continue with aspirin 81 mg daily -Per neurology recommendation patient started on Plavix 75 mg daily -Initiated 40 mg Lipitor daily -Continue neurochecks -Triglycerides 94.7, cholesterol 132, LDL 66, VLDL 18.94, HDL 47.10 -Hemoglobin A1c 5.9 -Review CBC and BMP -PT, OT, ST on consult -Cardiology consulted for possible PFO and for DANYA; per neurology's recommendation patient should be considered for 30-day event monitor -Per the neurology team, spoke with vascular surgery (Dr. Liao) and she states that it is possible of the right ICA is greater than 50% stenosed and if the DANYA is unremarkable, intervention may be considered. #Syncopy v Mechanical fall #Debility -Echocardiogram pending -Orthostatics pending -Cardiac monitoring -On Aricept, monitor for bradycardic episodes - if occurring, consider D/C #Complicated urinary tract infection (gram-negative negative bacilli) -WBC 13.6 with associated tenderness of the bladder -Urinalysis positive with nitrites and leukocyte Estrace -Urine culture pending -Patient will continue with Rocephin 1 g IVPB every 24 hours (received 3 days); with symptom improvement within 48 hours, consider course of 5-10 days -Urine culture positive for ESBL MDRO Klebsiella pneumonia, resistant to Rocephin, Rocephin discontinued -Initiate treatment with 1 g ertapenem daily - once symptoms improve (if culture and susceptibility results allow) switch to an appropriate oral regimen; consider treatment course of 5-10 days [first dose of ertapenem given on 05/21/2024] -Infectious diseases been consulted -Continue on NS 20 cc/h -Monitor CBC, BMP Chronic conditions: #Dementia - continue home medications #Hypothyroidism - Continue home medications #Chronic kidney disease stage IIIb GI prophylaxis: Not indicated DVT prophylaxis: Heparin 5000 units every 12 hours Dictation was produced using [employer] dictation software. please excuse any grammatical, word or spelling errors. I saw and evaluated the patient during the wise and critical portions of this encounter, and discussed the case in detail with the resident author of this note, I agree with the Assessment and Plan, and my changes, if any, are highlighted below. Objective - Vital Signs Vital signs: Vital Signs Temp 97.5 F L 05/20/24 23:30 Pulse 93 05/21/24 04:00 Resp 20 05/21/24 04:00 BP 158/69 05/21/24 04:00 Pulse Ox 98 05/21/24 04:00 FiO2 Intake & Output 05/20/24 05/21/24 05/21/24 18:59 06:59 18:59 Intake Total 875 Output Total 675 1000 Balance 200 -1000 Intake: IV 375 Sodium Chloride 0.9% 1, 375 000 ml @ 75 mls/hr IV . [id number] [facility] Rx#:[id number] Oral 500 Output: Urine 675 1000 Other: Voiding Method External Catheter External Catheter # Voids 1 # Bowel Movements 0 0 - Labs CBC & Chem 7: 05/21/24 05:37 05/21/24 05:37 Labs: Abnormal Lab Results - Last 24 Hours (Table) 05/20/24 05/20/24 05/21/24 Range/Units 05:52 20:36 06:08 MCHC 30.3 L (31.0-37.0) g/dL POC Glucose (mg/dL) 149 H 123 H (70-110) mg/dL Microbiology - Last 24 Hours (Table) 05/18/24 13:27 Urine Culture - Final Urine,Voided Klebsiella pneumo ESBL MDRO
--- NOTE | 2024-05-21 14:47 | US ---
EXAMINATION TYPE: US kidneys/renal and bladder DATE OF EXAM: 05/21/2024 COMPARISON: NONE CLINICAL INDICATION: Female, 69 years old with history of uti and bacteremia; UTI and bacteremia. TECHNIQUE: Grayscale imaging of the bilateral kidneys and urinary bladder: FINDINGS: EXAM MEASUREMENTS: Right Kidney: 10.4 x 5.0 x 4.6 cm Left Kidney: 9.7 x 4.4 x 4.9 cm Right Kidney: No hydronephrosis or masses seen Left Kidney: Possible minimal pelvocaliectasis. Bladder: Appears wnl Bilateral Jets seen: No Incidental finding: Incidental gallstone measuring 1.9 cm. IMPRESSION: 1. Right kidney without hydronephrosis. 2. Left kidney with possible minimal pelvicaliectasis which could be transient or could reflect early hydronephrosis. Consider short interval follow-up. 3. Incidental 1.9 cm gallstone. [facility], Workstation: [email or web address], 05/21/2024 2:45 PM
--- NOTE | 2024-05-21 16:07 | P.PN ---
Subjective Progress Note Date: 05/21/24 I am following-up with patient and she is about the same. No new neurological issues. Objective - Vital Signs Vital signs: Vital Signs Temp 98.1 F 05/21/24 15:54 Pulse 68 05/21/24 15:54 Resp 20 05/21/24 15:54 BP 179/79 05/21/24 15:54 Pulse Ox 99 05/21/24 15:54 FiO2 Intake & Output 05/20/24 05/21/24 05/21/24 18:59 06:59 18:59 Intake Total 875 Output Total 675 1000 Balance 200 -1000 Intake: IV 375 Sodium Chloride 0.9% 1, 375 000 ml @ 75 mls/hr IV . [id number] [facility] Rx#:[id number] Oral 500 Output: Urine 675 1000 Other: Voiding Method External Catheter External Catheter External Catheter # Voids 1 1 # Bowel Movements 0 0 2 - Exam General: Lying in bed and is not in acute distress. HENT: Supple neck. Neuro: Limited since patient has underlying dementia with speech difficulty. Patient is awake alert oriented to self. She is following simple commands. Limited language. The pupils are round about 4 mm and reactive to light. Visual gerard are full to confrontation. Extraocular movements intact no nystagmus. Normal facial sensation to touch. Patient does have mild left lower facial droop. No dysarthria Tongue is midline moves [id number] with any difficulty Motor: Right upper extremity 4. Right lower extremity is 1-2 with multiple attempts. Left upper lower extremity is 5 out of 5. Sensation: She could not tell me if it feels normal to touch but it seems that she had normal painful stimuli bilaterally. Reflexes 2 positive throughout except for the left lower extremity is a 1 positive. Plantars are mute. Some of the work-up during this hospital visit conisted of: Lipid panel is triglycerides 94, cholesterol is 132, LDL 66 and HDL is 47. Hemoglobin A1c is 5.9. CT of the head is reported as similar mild ventriculomegaly likely due to central cerebral atrophy. Correlate with symptoms to exclude component of NPH. Mild to moderate patchy border of chronic small vessel ischemic disease. No acute intracranial abnormality seen. I personally reviewed the CT and agree there is no acute or subacute stroke. CTA neck: Atherosclerotic changes of bilateral carotid bifurcation this results moderate 65% proximal right ICA stenosis on the right and moderate just over 50% proximal left ICA stenosis on the left. No hemodynamically significant ICA stenosis identified. Anatomic variation with takeoff of the left vertebral artery directly from the aortic arch. CTA head: No large vessel intracranial arterial occlusion, significant stenosis or aneurysm changes seen 2D echo: Normal left ventricular size and stock function with mild to moderate concentric left ventricular hypertrophy. Mild right ventricular prominence. Moderate dilation of both atria. There is heavy mitral annular calcification with thickening of mitral valve leaflets and some calcific mild stenosis. Aortic valve reveals some sclerosis no restriction. Saline contrast suggested possible PFO Carotid Duplex is reported as some elevation in velocity but with proximal right ICA indicating moderate 50 to 69% stenosis. No hemodynamically significant internal carotid artery stenosis on either side. MRI of the brain is reported as acute/subacute ischemic within the posterior aspect of the left caudate nucleus body in the left splenium of the corpus callosum. 24-hour post IV TNK is reported as moderate patchy burden of chronic small vessel ischemic disease. Hypodensity along the left basal ganglia and splenium of the left corpus callosum minimally more pronounced corresponding to the site of acute/subacute infarct on MRI earlier today. No hemorrhagic transformation - Labs CBC & Chem 7: 05/21/24 05:37 05/21/24 05:37 Labs: Abnormal Lab Results - Last 24 Hours (Table) 05/20/24 05/21/24 05/21/24 Range/Units 20:36 05:37 06:08 Chloride 108 H (98-107) mmol/L BUN 18 H (7-17) mg/dL Creatinine 1.29 H (0.52-1.04) mg/dL Glucose 118 H (74-99) mg/dL POC Glucose (mg/dL) 149 H 123 H (70-110) mg/dL 05/21/24 Range/Units 11:26 Chloride (98-107) mmol/L BUN (7-17) mg/dL Creatinine (0.52-1.04) mg/dL Glucose (74-99) mg/dL POC Glucose (mg/dL) 132 H (70-110) mg/dL Microbiology - Last 24 Hours (Table) 05/18/24 13:27 Urine Culture - Final Urine,Voided Klebsiella pneumo ESBL MDRO Assessment and Plan Assessment: This is a 69-year-old woman present emergency department on 05/18/2024 because of a fall the night prior. Seems the patient has recurrent falls. This hospi heidy visit seems to the patient has probable acute urinary tract infection. Today it was noted the patient had right sided weakness and left facial droop upon being evaluated by physical therapy around 10-magaly a.m. and last normal reported around 8-magaly a.m. by resident from primary team. Acute right sided weakness (predominately right lower >> upper) as well as left facial droop is likely acute ischemic stroke status post IV TNK. Her initial NIH stroke scale was a 7 and the repeat was a 5. MRI Brain reveals acute/subacute ischemic within the posterior aspect of the left caudate nucleus body in the left splenium of the corpus callosum. Unknown exact. No afib or flutter. Has possible PFO on 2D echo. Right ICA stenosis of about 65% and left ICA of 50% on CT angiography but carotid duplex right is 50-69% and that seems asymptomatic. While on left ICA on duplex is no hemodynamically significant stenosis which is discordant on both imaging. Acute urinary tract infection Recurrent falls Underlying history of dementia and per the resident from primary team he states the patient confabulates at baseline Underlying history of developmentally delayed Hypothyroidism Diabetes mellitus Plan: Repeat CT head is negative for bleed. She was resumed on ASA 81mg daily by primary team. I also added Plavix 75mg daily. Continue Lipitor 40 mg daily. I consulted cardiology team for possible PFO and for DANYA. Recommend 30 days event monitor. Continue neurochecks Cardiac monitoring PT OT and AVIONICS SYSTEMS INTEGRATION SPECIALIST are consulted Consulted vascular surgery team for the carotid stenosis. I spoke with the vascular surgeon (Dr. Liao) team and she stated she think right ICA is greater than 50% stenosis and if DANYA is unremarkable she would like to consider intervention. Will defer the rest of the medical management to primary and other specialist For DVT prophylaxis: On subq heparin 5000 unit every 12 hours. Plan discussed with her daughter who is at bedside, sister via phone and her nurse. Time with Patient: Less than 30
[2024-05-21 16:19] LABS: Glucose,Whole Blood 131 mg/dL (70-110)
--- NOTE | 2024-05-21 19:00 | P.PN ---
Subjective Progress Note Date: 05/21/24 This is a 69-year-old female patient was brought into the intensive. Receiving thrombolytics for new onset right-sided weakness and left facial droop. The patient is not have dementia. She is known to have diabetes mellitus with chronic kidney disease. She is also known to have hypertension hyperlipidemia. She has been having episodes of falls and earlier this morning, the patient was noted to have right-sided weakness. CT scan of the head showed mild ventriculomegaly and cerebral atrophy. Chronic small vessel ischemic changes. CTA of the neck showed 65% proximal right ICA and 50% proximal left ICA and the carotid Doppler showed no significant hemodynamically stenosis of the carotids. CTA of the head and neck showed no large vessel intracranial arterial occlusion. Initial NIH score was 7. The patient was given TNK and following that she was admitted to the intensive care unit. Motor function in the right upper extremity is adequate. There is some ongoing weakness in the right lower extremity. She is awake alert and communicating. Family at the bedside. No vision changes. No headaches. No seizure activity. She has been found to have UTI and currently the patient is on IV Rocephin. Afebrile and hemodynamically stable. Normal coagulation profile. Creatinine is at 1.4 consistent with chronic kidney disease with a GFR of 32. Hemoglobin is at 12.8. On 05/20/2024, the patient is being seen for a follow-up. The patient is status post TNK for an acute CVA. She remains awake and alert. No headaches. No altered mentation. Significant weakness in the right lower extremity. Motor function is improved in the right upper extremity which is estimated to be around 4 out of 5. No significant facial asymmetry. Able to swallow. A follow-up CAT scan of the brain was done today and it shows no evidence of any bleeds. There is moderate patchy burden of chronic small vessel ischemic disease along with hypodensity along the left basal ganglia may suggest an acute/subacute infarct. There is also abnormalities in the left corpus callosum. Hemodynamically stable. No significant hypotension. The white cell count of 9.7, hemoglobin 12.3, platelet count is 219. Creatinine is 1.3 with a BUN of 21. LDL cholesterol is 66. HbA1c was at 5.9. On 05/21/2024, the patient is being seen for a follow-up. Neurologic status is essentially unchanged. No new onset neurological deficits. Continues to have weakness in the right lower extremity. Able to swallow. Able to tolerate diet. Echocardiogram was also completed and the patient was found to have normal LV, m oderate LVH, moderate dilatation of both atria, mild mitral tricuspid regurgitation, saline contrast suggestive of possible PFO. MRI of the brain was also completed and the patient was noted to have an acute/subacute ischemia of the posterior aspect of the left caudate nucleus and left splenium corpus callosum. Hemodynamically stable. No fever. The patient is currently on room air oxygen with a pulse ox of 98%. Cardiac rhythm is sinus. WBC count of 10.4, hemoglobin 11.5 and a platelet count of 223. BUN is 18 with a creatinine of 1.2 and a sodium level is at 139. Currently on aspirin and Plavix was also added. At the same time, the patient was found to have a Klebsiella pneumonia ESBL producing urinary tract infection and the patient is currently on IV Invanz. Objective - Vital Signs Vital signs: Vital Signs Temp 96.7 F L 05/21/24 08:00 Pulse 77 05/21/24 08:00 Resp 18 05/21/24 08:00 BP 179/77 05/21/24 08:00 Pulse Ox 100 05/21/24 08:00 FiO2 Intake & Output 05/20/24 05/21/24 05/21/24 18:59 06:59 18:59 Intake Total 875 Output Total 675 1000 Balance 200 -1000 Intake: IV 375 Sodium Chloride 0.9% 1, 375 000 ml @ 75 mls/hr IV . [id number] [facility] Rx#:[id number] Oral 500 Output: Urine 675 1000 Other: Voiding Method External Catheter External Catheter External Catheter # Voids 1 # Bowel Movements 0 0 2 - Exam General: Lying in bed and is not in acute distress. Patient has a BMI of 34.7. Currently on room air oxygen. Head exam was generally normal. There was no scleral icterus or corneal arcus. Mucous membranes were moist. Neck was supple and without jugular venous distension, thyromegaly, or carotid bruits. Carotids were easily palpable bilaterally. There was no adenopathy. Lungs were clear to auscultation and percussion, and with normal diaphragmatic excursion. No wheezes or rales were noted. Cardiac exam revealed the PMI to be normally situated and sized. The rhythm was regular and no extrasystoles were noted during several minutes of auscultation. The first and second heart sounds were normal and physiologic splitting of the second heart sound was noted. There were no murmurs, rubs, clicks, or gallops. Abdominal exam revealed normal bowel sounds. The abdomen was soft, non-tender, and without masses, organomegaly, or appreciable enlargement of the abdominal aorta. Examination of the extremities revealed easily palpable radial, femoral and ped al pulses. There was no cyanosis, clubbing or edema. Examination of the skin revealed no evidence of significant rashes, suspicious appearing nevi or other concerning lesions. Neurologic examination is limited since patient has underlying dementia. Patient is awake alert oriented to self. She is following simple commands. No aphasia from limited language The pupils are round about 4 mm and reactive to light. Visual gerard are full to confrontation. Extraocular movements intact no nystagmus. Normal facial sensation to touch. Patient does have mild left lower facial droop. No dysarthria Tongue is midline moves [id number] with any difficulty Motor: Right upper extremity right arm extension patient has about a 3 right hand drawbridge operator is 3-4. Patient does have her right upper extremity drift. Left arm flexion is about a 4 -. Right lower extremity is 0-1. Left upper lower extremity is 5 out of 5. Sensation: She could not tell me if it feels normal to touch but it seems that she had normal painful stimuli bilaterally. Reflexes 2 positive throughout except for the left lower extremity is a 1 positive. - Labs CBC & Chem 7: 05/21/24 05:37 05/21/24 05:37 Labs: Abnormal Lab Results - Last 24 Hours (Table) 05/20/24 05/21/24 05/21/24 Range/Units 20:36 05:37 06:08 Chloride 108 H (98-107) mmol/L BUN 18 H (7-17) mg/dL Creatinine 1.29 H (0.52-1.04) mg/dL Glucose 118 H (74-99) mg/dL POC Glucose (mg/dL) 149 H 123 H (70-110) mg/dL Microbiology - Last 24 Hours (Table) 05/18/24 13:27 Urine Culture - Final Urine,Voided Klebsiella pneumo ESBL MDRO Assessment and Plan Plan: Acute CVA with right-sided weakness and left facial droop, status post TNK treatment. Initial NIH score was 7. CT scan of the brain showed cerebral atrophy and CT angiogram of the brain showed no intracranial vascular ab normalities and the patient has bilateral carotid artery disease, 65% on the right ICA and 50% of the left. Follow-up CAT scan of the brain showed no acute hemorrhage. Changes in the left corpus callosum and basal ganglia indicating acute/subacute infarct. Neurologically unchanged compared to yesterday. The patient is currently on a combination of aspirin and Plavix. Will need a DANYA regarding embolic disease contributing to this acute CVA. Transthoracic echocardiogram suggested the possibility of a patent PFO. MRI of the brain showed a subacute CVA of the posterior aspect of the left caudate nucleus and left splenium corpus callosum. Bilateral carotid artery disease Dementia Diabetes mellitus type 2 Chronic kidney disease Hypothyroidism Hypertension UTI, secondary to Klebsiella pneumonia, ESBL producing Plan Monitor neurological functions Clinically stable Continue aspirin and Plavix MRI of the brain was completed consistent with CVA/subacute involving the posterior aspect of the left caudate nucleus and left splenium corpus callosum. 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
[2024-05-21 20:22] LABS: Glucose,Whole Blood 140 mg/dL (70-110)
[2024-05-21] MEDS: ERTAPENEM 1 GM in SODIUM CHLORIDE 0.9% 50 ML IVPB SCH (21:35)
[2024-05-22 05:57] LABS: Glucose,Whole Blood 126 mg/dL (70-110)
[2024-05-22 06:34] LABS: Basophils % (A) 0 %; Eosinophils # (A) 0.5 k/uL (0-0.7); Eosinophils % (A) 6 %; HCT 38.2 % (34.0-46.0); HGB 11.8 gm/dL (11.4-16.0); Hypochromasia Slight; Lymphocytes # (A) 1.9 k/uL (1.0-4.8); Lymphocytes % (A) 24 %; MCH 27.6 pg (25.0-35.0); MCHC 30.8 g/dL (31.0-37.0); MCV 89.4 fL (80.0-100.0); Mean Platelet Volume 7.7; Monocytes # (A) 0.5 k/uL (0-1.0); Monocytes % (A) 6 %; Neutrophils # (A) 5.1 k/uL (1.3-7.7); Neutrophils % (A) 63 %; Platelet Count 248 k/uL (150-450); RBC 4.28 m/uL (3.80-5.40); RDW 13.6 % (11.5-15.5); WBC 8.1 k/uL (3.8-10.6)
[2024-05-22 07:06] LABS: African American GFR (CKD) 42 (>60 ml/min/1.73 sqM); Anion Gap 8 mmol/L; Blood Urea Nitrogen 21 mg/dL (7-17); Calcium 9.1 mg/dL (8.4-10.2); Carbon Dioxide 27 mmol/L (22-30); Chloride 104 mmol/L (98-107); Glucose 105 mg/dL (74-99); Non-African American GFR(CKD) 36 (>60 ml/min/1.73 sqM); Potassium 4.9 mmol/L (3.5-5.1); Sodium 139 mmol/L (137-145)
--- NOTE | 2024-05-22 07:36 | P.CONS ---
History of Present Illness - Reason for Consult Consult date: 05/21/24 MDRO Klebsiella UTI Requesting physician: Fiordaliza Woods - Chief Complaint Weakness X few days - History of Present Illness Patient is a 69-year-old female with a past medical history significant for diabetes mellitus hypertension renal disease and dementia has been brought to the hospital 3 days ago for evaluation of fall and the patient was unable to get up when the family member went to check on her she was found on the ground patient was complaining of some left foot pain on arrival to the ER patient did have a low-grade fever of 99 F no high-grade fever have been recorded patient was nontachycardic hypotensive or hypoxic and no need for supplemental oxygen she did have elevated white count of 13.6 on admission with a left shift awaiting creatinine has been elevated white count subsequent normalized he did have a positive UA with large leukocyte esterase moderate WBC culture has been finalized with ESBL Klebsiella antibiotic was switched to In [facility] infectious disease was consulted for further management of antibiotic therapy most information has been extracted from review the chart as patient herself not a very good historian though denies having any chest pain shortness of breath or cough no abdominal pain no diarrhea Review of Systems Positive point and negatives has been mentioned in the HPI, complete review of systems was performed and all other systems are negative Past Medical History Past Medical History: Dementia, Diabetes Mellitus, Eye Disorder, Hypertension, Renal Disease, Thyroid Disorder Additional Past Medical History / Comment(s): blood in urine noticed by daughter 1 year 2023, but never followed up w/ History of Any Multi-Drug Resistant Organisms: ESBL Year Discovered:: 05/18/24 MDRO Source:: urine Additional Past Surgical History / Comment(s): rt eye catartact removal and implant Past Anesthesia/Blood Transfusion Reactions: No Reported Reaction Past Psychological History: No Psychological Hx Reported Smoking Status: Never smoker Past Alcohol Use History: None Reported Past Drug Use History: None Reported, Marijuana Medications and Allergies Home Medications Medication Instructions Recorded Confirmed Type ARIPiprazole [Abilify] 2 mg PO DAILY 05/18/24 05/18/24 History Donepezil [Aricept] 10 mg PO HS 05/18/24 05/18/24 History Ergocalciferol (Vitamin D2) 1,250 mcg PO Q7D 05/18/24 05/18/24 History [Drisdol (50,000 Iu)] Levothyroxine Sodium [Synthroid] 25 mcg PO DAILY 05/18/24 05/18/24 History Mirtazapine [Remeron] 15 mg PO HS 05/18/24 05/18/24 History Triamcinolone 0.1% Ointment 1 applic TOPICAL TID 05/18/24 05/18/24 History [Kenalog 0.1% Ointment] lisinopriL [Zestril] 20 mg PO DAILY 05/18/24 05/18/24 History metFORMIN HCL [Glucophage] 500 mg PO BID 05/18/24 05/18/24 History ondansetron HCL [Ondansetron HCl] 8 mg PO TID PRN 05/18/24 05/18/24 History Allergies Allergy/AdvReac Type Severity Reaction Status Date / Time No Known Allergies Allergy Verified 05/18/24 16:16 Physical Exam Vitals: Vital Signs Temp Pulse Pulse Resp BP BP Pulse Ox 05/21/24 08:00 96.7 F L 77 18 179/77 100 05/21/24 04:00 93 20 158/69 98 05/20/24 23:30 97.5 F L 82 20 148/72 100 05/20/24 20:40 97.4 F L 61 20 160/67 98 05/20/24 20:00 97.9 F 75 20 151/57 96 05/20/24 16:00 97.7 F 76 17 152/90 97 05/20/24 14:00 66 20 164/70 97 05/20/24 13:00 71 9 L 162/67 98 05/20/24 12:00 67 17 143/49 97 05/20/24 11:00 64 13 158/71 94 L Intake and Output 05/20/24 05/21/24 05/21/24 22:59 06:59 14:59 Output Total 1000 Balance -1000 Output: Urine 1000 Other: Voiding Method External Catheter External Catheter External Catheter # Voids 1 # Bowel Movements 0 2 GENERAL DESCRIPTION: Elderly female lying in bed, no distress. No tachypnea or accessory muscle of respiration use. HEENT: Shows Pallor , no scleral icterus. Oral mucous membrane is dry. No pharyngeal erythema or thrush NECK: Trachea central, no thyromegaly. LUNGS: Unlabored breathing. Clear to auscultation anteriorly. No wheeze or crackle. HEART: S1, S2, regular rate and rhythm. No loud murmur ABDOMEN: Soft, no tenderness , guarding or rigidity, no organomegaly EXTREMITIES: No edema of feet. SKIN: No rash, no masses palpable. NEUROLOGICAL: The patient is awake, mood and affect normal. Results CBC & Chem 7: 05/22/24 05:35 05/22/24 05:35 Labs: Abnormal Lab Results - Last 24 Hours (Table) 05/20/24 05/21/24 05/21/24 Range/Units 20:36 05:37 06:08 Chloride 108 H (98-107) mmol/L BUN 18 H (7-17) mg/dL Creatinine 1.29 H (0.52-1.04) mg/dL Glucose 118 H (74-99) mg/dL POC Glucose (mg/dL) 149 H 123 H (70-110) mg/dL Microbiology - Last 24 Hours (Table) 05/18/24 13:27 Urine Culture - Final Urine,Voided Klebsiella pneumo ESBL MDRO Assessment and Plan (1) Infection with ESBL Klebsiella oxytoca Current Visit: Yes Status: Acute Code(s): A49.8 - OTHER BACTERIAL INFECTIONS OF UNSPECIFIED SITE; Z16.12 - EXTENDED SPECTRUM BETA LACTAMASE (ESBL) RESISTANCE SNOMED Code(s): 9117758843 (2) Urinary tract infection Current Visit: Yes Status: Acute Code(s): N39.0 - URINARY TRACT INFECTION, SITE NOT SPECIFIED SNOMED Code(s): 24782184 Plan: 1patient presented hospital with weakness fall did have some mental status changes elevated white count positive UA concerning for symptomatic UTI contributing to her symptoms urine positive for ESBL Klebsiella. 2we will check a ultrasound of the kidney bladder to make sure no evidence of any hydronephrosis or structural abnormality. 3Invanz 1 g daily patient will likely need midline and short course of IV antibiotic on discharge. We will follow on clinical condition and cultures to further adjust medication if needed Thank you for this consultation we will follow the patient along with you Dictation was produced using Vissation software. please excuse any grammatical, word or spelling errors. Time with Patient: Greater than 30
[2024-05-22] MEDS: LABETALOL 5 MG/ML VIAL MDV IVP PRN (08:06)
[2024-05-22] MEDS: amLODIPine 2.5 MG TAB PO SCH (09:53)
[2024-05-22 11:36] LABS: Glucose,Whole Blood 115 mg/dL (70-110)
--- NOTE | 2024-05-22 11:45 | P.PN ---
Subjective Progress Note Date: 05/22/24 Principal diagnosis: Carotid stenosis Patient is seen and examined today as a follow-up. She is alert and oriented. She still complains of weakness on her right side, right lower extremity greater than upper extremity. She denies any new focal deficits. She is scheduled to [facility] DANYA this afternoon with cardiology. Objective - Vital Signs Vital signs: Vital Signs Temp 97.7 F 05/22/24 07:53 Pulse 76 05/22/24 07:53 Resp 18 05/22/24 07:53 BP 169/70 05/22/24 08:30 Pulse Ox 99 05/22/24 07:53 FiO2 Intake & Output 05/21/24 05/22/24 05/22/24 18:59 06:59 18:59 Intake Total 240 10 118 Output Total 800 Balance 240 -790 118 Weight 107.5 kg Intake: IV 10 Invasive Line 3 10 Oral 240 118 Output: Urine 800 Other: Voiding Method External Catheter External Catheter # Voids 1 # Bowel Movements 2 1 - Exam General appearance: The patient is alert, oriented, appears in no acute distress. Obese. HET: Head is normocephalic and atraumatic. Pupils are equal and reactive. Neck: Supple. No audible bruit. Heart: Regular. Lungs: Equal expansion, normal respiratory effort. Abdomen: Soft, nontender, nondistended. Extremities: Normal skin color and turgor. Palpable bilateral radial and DP pulses. Neurological: Patient is alert and oriented. Speech is fluent, answers ques tions appropriately. Right sided upper and lower extremity weakness, lower extremity greater than upper. - Labs CBC & Chem 7: 05/22/24 05:35 05/22/24 05:35 Labs: Abnormal Lab Results - Last 24 Hours (Table) 05/21/24 05/21/24 05/21/24 Range/Units 11:26 16:17 20:19 MCHC (31.0-37.0) g/dL BUN (7-17) mg/dL Creatinine (0.52-1.04) mg/dL Glucose (74-99) mg/dL POC Glucose (mg/dL) 132 H 131 H 140 H (70-110) mg/dL 05/22/24 05/22/24 05/22/24 Range/Units 05:35 05:35 05:55 MCHC 30.8 L (31.0-37.0) g/dL BUN 21 H (7-17) mg/dL Creatinine 1.47 H (0.52-1.04) mg/dL Glucose 105 H (74-99) mg/dL POC Glucose (mg/dL) 126 H (70-110) mg/dL Assessment and Plan Assessment: 1. Symptomatic left ICA stenosis, greater than 50% 2. Acute/subacute ischemic stroke within the posterior aspect of left caudate nucleus body and left splenium of the corpus callosum with symptoms of right sided weakness 3. Possible PFO reported on echocardiogram 4. Recent fall 5. Urinary tract infection 6. Hypertension 7. Dementia Plan: 1. Carotid duplex ordered and reviewed 2. Neurology on consultation, appreciate their recommendations 3. Patient is status post T.enecteplase 4. PT, OT, ST on consult 5. Cardiology on consultation, will need cardiac clearance for left TCAR, possible carotid endarterectomy 6. Lower extremity venous duplex negative for DVT 6. Further recommendations forthcoming based on clinical course Thank you for this consultation, we will follow along. The impression and plan of care has been dictated as directed. Dr. María Peña performed a history and examination of this patient, discussed the same with the dictator. I agree with the dictator's note ,documented as a scribe. Any additional findings or plans will be noted.
--- NOTE | 2024-05-22 12:25 | P.PN ---
Subjective Progress Note Date: 05/22/24 History of present illness; Patient is a 69-year-old female with a past medical history significant for pio betes mellitus, thyroid disorder. She presented to the emergency department after falling at home. She states that she has frequent falls, with the most recent one being last night which brought her to the emergency department today. She states that she was in her apartment and attempting to clean her apartment, at that time she states that she lost her footing and fell on her left side. She states that she did not hit her head, however she does attest to having felt some dizziness prior to falling. She was found on the ground by her son-in-law, and she is unsure of how long she was on the ground for but believes it to be at least 2 hours stating that she was too weak to get herself up. She has no acute pain anywhere on her body, however notes some generalized soreness in her lower extremities and her right shoulder. She lives alone and states that she is able to handle most activities of daily living by herself. She states that she has not taken any anticoagulation medications. 05/19/24 - Patient seen and examined at bedside. She had no events overnight, stated she was feeling better. With no acute complaints. Was contacted by the nurse at approximately 10:45 AM noting there was new onset weakness in the patient's right side, asking if this was new compared to yesterd ay when the patient was previously seen. Went down and saw the patient in the observation unit to assess, her right arm was in decerebrate positioning and noted she had an inability to move right lower extremity, drift when extending her right upper extremity. Additionally, patient was noted to have left-sided facial droop, as well as left-sided deviation of the tongue when protruding. During this time she was able to fully converse and answer questions appropriately, although maintaining her circumstantial speech as well as confabulation. At that time code stroke was called. 05/20/24 - Patient seen and examined at bedside this morning, remaining in the ICU for close monitoring. She states she is feeling better than yesterday. Notes increased ability to move her right upper and lower extremity. It has been noted by the nursing staff that she has intermittent moments of the ability to have function of her right lower extremity. She has no acute complaints at this time and states that the suprapubic tenderness she had been experiencing has resolved. 05/21/24 - Patient seen and examined at bedside this morning, she was moved out of the ICU yesterday afternoon and is now on cardiac step down, 3 south. States she is feeling better this morning than she had been. Has no acute complaints at this time. 05/22/24 - Patient seen and examined at bedside this morning. States she is feeling well. No new changes in the functional status for right lower extremity as it is about the same as yesterday. She is scheduled to undergo a DANYA this morning to determine if any further steps are to be taken with vascular surgery. She has no acute complaints at this time. PHYSICAL EXAMINATION: GENERAL: The patient is alert and oriented x3, with circumstantial speech with confabulation HEENT: Pupils are round and equally reacting to light. EOMI. No scleral icterus. No conjunctival pallor. CARDIOVASCULAR: S1 and S2 present. No murmurs, rubs, or gallops. PULMONARY: Chest is clear to auscultation, no wheezing or crackles. ABDOMEN: Soft, nontender, nondistended, normoactive bowel sounds. No palpable organomegaly. MUSCULOSKELETAL: No joint swelling or deformity. EXTREMITIES: No cyanosis, clubbing, or pedal edema. NEUROLOGICAL: Some mobility of the right lower extremity restored, able to wiggle her toes and move her foot at the ankle and plantar and dorsi flexion; drift with extension of right upper extremity; right upper extremity noted to be into 3 repositioning; trimmer hand strength on the right side improved as compared to yesterday; left sided facial droop and tongue deviation SKIN: No rashes. New data today: Labs: WBCs 8.1, hemoglobin 11.8, hematocrit 38.2, platelet 248; sodium 139, potassium 4.9, BUN 21, creatinine 1.47, calcium 9.1 Imaging: Abdomen/bladder ultrasound showed right kidney without hydronephrosis; left kidney with possible minimal pelvicaliectasis which could be transient however could reflect early hydronephrosis (consider short interval follow-up); incidental 1.9 cm gallstone Assessment and plan 69-year-old female with PMH of diabetes mellitus, thyroid disorder. Presents emergency department following a fall at home in which she notes to having some dizziness prior to falling. #New onset right-sided weakness #History of previous stroke ~30 years ago -Last known normal ~7:30-8:00 am -~10:45 a.m. patient was noted to have weakness of her right lower extremity -Code stroke called -CT brain completed, read and reviewed -CT angiography head/neck read and reviewed -Carotid Doppler read and reviewed -MRI brain w/o contrast completed, read and reviewed -Repeat CT brain (05/20/2024) completed, read and reviewed -Patient received TNK 24.5 mg IV push once -Initiated aspirin 325 mg once this morning (05/19/2024) -Continue with aspirin 81 mg daily -Per neurology recommendation patient started on Plavix 75 mg daily -Initiated 40 mg Lipitor daily -Continue neurochecks -Triglycerides 94.7, cholesterol 132, LDL 66, VLDL 18.94, HDL 47.10 -Hemoglobin A1c 5.9 -Review CBC and BMP -PT, OT, ST on consult -Cardiology consulted for possible PFO and for DANYA; per neurology's recommendation patient should be considered for 30-day event monitor -Per the neurology team, spoke with vascular surgery (Dr. Liao) and she states that it is possible of the right ICA is greater than 50% stenosed and if the DANYA is unremarkable, intervention may be considered with left-sided TCAR, and possible carotid endarterectomy -DANYA scheduled for Saturday with Dr. Kat #Syncopy v Mechanical fall #Debility -Echocardiogram pending -Orthostatics pending -Cardiac monitoring -On Aricept, monitor for bradycardic episodes - if occurring, consider D/C #Complicated urinary tract infection (gram-negative negative bacilli) -WBC 13.6 with associated tenderness of the bladder -Urinalysis positive with nitrites and leukocyte Estrace -Urine culture pending -Patient will continue with Rocephin 1 g IVPB every 24 hours (received 3 days); with symptom improvement within 48 hours, consider course of 5-10 days -Urine culture positive for ESBL MDRO Klebsiella pneumonia, resistant to Rocephin, Rocephin discontinued -Initiate treatment with 1 g ertapenem daily - once symptoms improve (if culture and susceptibility results allow) switch to an appropriate oral regimen; consider treatment course of 5-10 days [first dose of ertapenem given on 025] -Infectious diseases been consulted -Continue on NS 20 cc/h -Monitor CBC, BMP Chronic conditions: #Dementia - continue home medications #Hypothyroidism - Continue home medications #Chronic kidney disease stage IIIb GI prophylaxis: Not indicated DVT prophylaxis: Heparin 5000 units every 12 hours Dictation was produced using [employer] dictation software. please excuse any grammatical, word or spelling errors. I saw and evaluated the patient during the wise and critical portions of this encounter, and discussed the case in detail with the resident author of this note, I agree with the Assessment and Plan, and my changes, if any, are highlighted below. DANYA shows no thrombus, no ASD or PFO, heavily calcified mitral leaflet base. Discussed with Rachel DAUGHERTY, possible Vascular intervention on Saturday. Rivera DAUGHERTY (PATRICIO) updated with regard to the plans. Objective - Vital Signs Vital signs: Vital Signs Temp 98.1 F 05/22/24 04:32 Pulse 87 05/22/24 04:32 Resp 18 05/22/24 04:32 BP 161/82 05/22/24 04:32 Pulse Ox 95 05/22/24 04:32 FiO2 Intake & Output 05/21/24 05/22/24 05/22/24 18:59 06:59 18:59 Intake Total 240 10 Output Total 800 Balance 240 -790 Weight 107.5 kg Intake: IV 10 Invasive Line 3 10 Oral 240 Output: Urine 800 Other: Voiding Method External Catheter External Catheter # Voids 1 # Bowel Movements 2 1 - Labs CBC & Chem 7: 05/22/24 05:35 05/22/24 05:35 Labs: Abnormal Lab Results - Last 24 Hours (Table) 05/21/24 05/21/24 05/21/24 Range/Units 05:37 11:26 16:17 MCHC (31.0-37.0) g/dL Chloride 108 H (98-107) mmol/L BUN 18 H (7-17) mg/dL Creatinine 1.29 H (0.52-1.04) mg/dL Glucose 118 H (74-99) mg/dL POC Glucose (mg/dL) 132 H 131 H (70-110) mg/dL 05/21/24 05/22/24 05/22/24 Range/Units 20:19 05:35 05:35 MCHC 30.8 L (31.0-37.0) g/dL Chloride (98-107) mmol/L BUN 21 H (7-17) mg/dL Creatinine 1.47 H (0.52-1.04) mg/dL Glucose 105 H (74-99) mg/dL POC Glucose (mg/dL) 140 H (70-110) mg/dL 05/22/24 Range/Units 05:55 MCHC (31.0-37.0) g/dL Chloride (98-107) mmol/L BUN (7-17) mg/dL Creatinine (0.52-1.04) mg/dL Glucose (74-99) mg/dL POC Glucose (mg/dL) 126 H (70-110) mg/dL
--- NOTE | 2024-05-22 12:58 | P.PN ---
Subjective Progress Note Date: 05/22/24 I am following up with the patient and she is about the same. Objective - Vital Signs Vital signs: Vital Signs Temp 97.9 F 05/22/24 11:28 Pulse 63 05/22/24 11:28 Resp 20 05/22/24 11:28 BP 142/63 05/22/24 11:28 Pulse Ox 99 05/22/24 11:28 FiO2 Intake & Output 05/21/24 05/22/24 05/22/24 18:59 06:59 18:59 Intake Total 240 10 118 Output Total 800 Balance 240 -790 118 Weight 107.5 kg Intake: IV 10 Invasive Line 3 10 Oral 240 118 Output: Urine 800 Other: Voiding Method External Catheter External Catheter # Voids 1 # Bowel Movements 2 1 - Exam General: Lying in bed and is not in acute distress. HENT: Supple neck. Neuro: Limited since patient has underlying dementia with speech difficulty. Patient is awake alert oriented to self. She is following simple commands. Limited language. The pupils are round about 4 mm and reactive to light. Visual gerard are full to confrontation. Extraocular movements intact no nystagmus. Normal facial sensation to touch. Patient does have mild left lower facial droop. No dysarthria Tongue is midline moves [id number] with any difficulty Motor: Right upper extremity 4. Right lower extremity is 1-2 with multiple attempts. Left upper lower extremity is 5 out of 5. Sensation: She could not tell me if it feels normal to touch but it seems that she had normal painful stimuli bilaterally. Reflexes 2 positive throughout except for the left lower extremity is a 1 positive. Plantars are mute. Some of the work-up during this hospital visit conisted of: Lipid panel is triglycerides 94, cholesterol is 132, LDL 66 and HDL is 47. Hemoglobin A1c is 5.9. CT of the head is reported as similar mild ventriculomegaly likely due to central cerebral atrophy. Correlate with symptoms to exclude component of NPH. Mild to moderate patchy border of chronic small vessel ischemic disease. No acute intracranial abnormality seen. I personally reviewed the CT and agree there is no acute or subacute stroke. CTA neck: Atherosclerotic changes of bilateral carotid bifurcation this results moderate 65% proximal right ICA stenosis on the right and moderate just over 50% proximal left ICA stenosis on the left. No hemodynamically significant ICA stenosis identified. Anatomic variation with takeoff of the left vertebral artery directly from the aortic arch. CTA head: No large vessel intracranial arterial occlusion, significant stenosis or aneurysm changes seen 2D echo: Normal left ventricular size and stock function with mild to moderate concentric left ventricular hypertrophy. Mild right ventricular prominence. Moderate dilation of both atria. There is heavy mitral annular calcification with thickening of mitral valve leaflets and some calcific mild stenosis. Aortic valve reveals some sclerosis no restriction. Saline contrast suggested possible PFO Carotid Duplex is reported as some elevation in velocity but with proximal right ICA indicating moderate 50 to 69% stenosis. No hemodynamically significant internal carotid artery stenosis on either side. MRI of the brain is reported as acute/subacute ischemic within the posterior aspect of the left caudate nucleus body in the left splenium of the corpus callosum. 24-hour post IV TNK is reported as moderate patchy burden of chronic small vessel ischemic disease. Hypodensity along the left basal ganglia and splenium of the left corpus callosum minimally more pronounced corresponding to the site of acute/subacute infarct on MRI earlier today. No hemorrhagic transformation - Labs CBC & Chem 7: 05/22/24 05:35 05/22/24 05:35 Labs: Abnormal Lab Results - Last 24 Hours (Table) 05/21/24 05/21/24 05/22/24 Range/Units 16:17 20:19 05:35 MCHC 30.8 L (31.0-37.0) g/dL BUN (7-17) mg/dL Creatinine (0.52-1.04) mg/dL Glucose (74-99) mg/dL POC Glucose (mg/dL) 131 H 140 H (70-110) mg/dL 05/22/24 05/22/24 05/22/24 Range/Units 05:35 05:55 11:34 MCHC (31.0-37.0) g/dL BUN 21 H (7-17) mg/dL Creatinine 1.47 H (0.52-1.04) mg/dL Glucose 105 H (74-99) mg/dL POC Glucose (mg/dL) 126 H 115 H (70-110) mg/dL Assessment and Plan Assessment: This is a 69-year-old woman present emergency department on 05/18/2024 because of a fall the night prior. Seems the patient has recurrent falls. This hospital visit seems to the patient has probable acute urinary tract infection. Today it was noted the patient had right sided weakness and left facial droop upon being evaluated by physical therapy around 10-magaly a.m. and last normal reported around 8-magaly a.m. by resident from primary team. Acute right sided weakness (predominately right lower >> upper) as well as left facial droop is likely acute ischemic stroke status post IV TNK. Her initial NIH stroke scale was a 7 and the repeat was a 5. MRI Brain reveals acute/subacute ischemic within the posterior aspect of the left caudate nucleus body in the left splenium of the corpus callosum. Unknown exact. No afib or flutter. Has possible PFO on 2D echo. Right ICA stenosis of about 65% and left ICA of 50% on CT angiography but carotid duplex right is 50-69% and that seems asymptomatic. While on left ICA on duplex is no hemodynamically significant stenosis which is discordant on both imaging. Acute urinary tract infection Recurrent falls Underlying history of dementia and per the resident from primary team he states the patient confabulates at baseline Underlying history of developmentally delayed Hypothyroidism Diabetes mellitus Plan: Repeat CT head is negative for bleed. She was resumed on ASA 81mg daily by primary team. I also added Plavix 75mg daily. Continue Lipitor 40 mg daily. Cardiology team consulted for possible PFO and schedule for DANYA today.. Recommend 30 days event monitor. Continue neurochecks Cardiac monitoring PT OT and HEAD BANQUET WAITER/WAITRESS are consulted Consulted vascular surgery team for the carotid stenosis. I spoke with the vascular surgeon (Dr. Liao) team and she stated she think right ICA is greater than 50% stenosis and if DANYA is unremarkable she would like to consider intervention. They are considering TCAR, possible carotid endarterectomy Will defer the rest of the medical management to primary and other specialist For DVT prophylaxis: On subq heparin 5000 unit every 12 hours. Plan discussed with her nurse. Dr. Owens will resume neurology service tomorrow A.M. Time with Patient: Less than 30
--- NOTE | 2024-05-22 13:22 | P.PN ---
Subjective Progress Note Date: 05/22/24 Principal diagnosis: Reason for follow-up is ESBL Klebsiella UTI Patient is a 69-year-old female with a past medical history significant for diabetes mellitus hypertension renal disease and dementia has been brought to the hospital for evaluation of fall weakness mental status changes he did have elevated white count positive UA concerning for symptomatic UTI urine culture positive for MDRO ESBL Klebsiella prompted this consultation. On today's evaluation that is 05/22/2024, the patient continues to be afebrile, the patient is on room air and breathing comfortably, the Pt denies having any chest pain or cough, the patient denies having any abdominal pain no vomiting or any diarrhea patient mention feeling better. Patient white count is 8.1 creatinine is 1.47 ultrasound abdomen did not show any hydronephrosis left kidney with possible minimal pelvicaliectasis, marker of early hydronephrosis Objective - Vital Signs Vital signs: Vital Signs Temp 97.9 F 05/22/24 11:28 Pulse 63 05/22/24 11:28 Resp 20 05/22/24 11:28 BP 142/63 05/22/24 11:28 Pulse Ox 99 05/22/24 11:28 FiO2 Intake & Output 05/21/24 05/22/24 05/22/24 18:59 06:59 18:59 Intake Total 240 10 118 Output Total 800 Balance 240 -790 118 Weight 107.5 kg Intake: IV 10 Invasive Line 3 10 Oral 240 118 Output: Urine 800 Other: Voiding Method External Catheter External Catheter # Voids 1 # Bowel Movements 2 1 - Exam GENERAL DESCRIPTION: An elderly female lying in bed in no distress RESPIRATORY SYSTEM: Unlabored breathing , decreased breath sounds at bases HEART: S1 S2 regular rate and rhythm , ABDOMEN: Soft , no tenderness EXTREMITIES: No edema feet - Labs CBC & Chem 7: 05/22/24 05:35 05/22/24 05:35 Labs: Abnormal Lab Results - Last 24 Hours (Table) 05/21/24 05/21/24 05/22/24 Range/Units 16:17 20:19 05:35 MCHC 30.8 L (31.0-37.0) g/dL BUN (7-17) mg/dL Creatinine (0.52-1.04) mg/dL Glucose (74-99) mg/dL POC Glucose (mg/dL) 131 H 140 H (70-110) mg/dL 05/22/24 05/22/24 05/22/24 Range/Units 05:35 05:55 11:34 MCHC (31.0-37.0) g/dL BUN 21 H (7-17) mg/dL Creatinine 1.47 H (0.52-1.04) mg/dL Glucose 105 H (74-99) mg/dL POC Glucose (mg/dL) 126 H 115 H (70-110) mg/dL Assessment and Plan (1) Infection with ESBL Klebsiella oxytoca Current Visit: Yes Status: Acute Code(s): A49.8 - OTHER BACTERIAL INFECTIONS OF UNSPECIFIED SITE; Z16.12 - EXTENDED SPECTRUM BETA LACTAMASE (ESBL) RESISTANCE SNOMED Code(s): 3052064459 (2) Urinary tract infection Current Visit: Yes Status: Acute Code(s): N39.0 - URINARY TRACT INFECTION, SITE NOT SPECIFIED SNOMED Code(s): 30698237 Plan: 1patient presented hospital with weakness fall did have some mental status changes elevated white count positive UA concerning for symptomatic UTI contributing to her symptoms urine positive for ESBL Klebsiella. 2patient did have ultrasound of the kidney bladder t concern for early hydronephrosis on the left side 3patient is afebrile white count normalized currently being treated with Invanz will need a midline and short course of IV Invanz on discharge discussed with the admitting physician Dictation was produced using [employer] dictation software. please excuse any grammatical, word or spelling errors. Time with Patient: Less than 30
[2024-05-22] MEDS: SODIUM CHLORIDE 0.9% 500 ML 500 ML IV ONE (13:27)
[2024-05-22] MEDS: BENZOCAINE SPRAY 1 CAN TOPICAL ONE (13:30)
[2024-05-22] MEDS: fentaNYL (PF) 50 MCG/ML 2 ML AMP IVP ONE (13:32)
[2024-05-22] MEDS: MIDAZOLAM 2 MG/2 ML VIAL IVP ONE (13:32)
--- NOTE | 2024-05-22 13:54 | P.TEE ---
Date of Procedure: 05/22/24 Description of Procedure(s): Procedure performed: 1. Transesophageal Echocardiogram with color flow doppler, pulsed wave doppler and continuous wave doppler, (CPT 73922, +[id number], +[id number]) 2. Moderate conscious sedation. Sedation time [20] mins. (CPT 69132) 3. Bubble Study Indications: CVA, mitral valve stenosis Consent: I have discussed the risks, benefits and alternative therapies for the above-mentioned procedure. The patient has indicated understanding and acceptance of the risks of the procedure. Signed consent was obtained and was placed in the paper chart. Procedural Steps: Timeout was performed in usual fashion. Patient's heart rate, blood pressure, oxygen saturation and ECG were monitored. Benzocaine was sprayed liberally in the back of the throat. Bite block was placed between the jaw. [1] mg of Versed and 50 mcg of Fentanyl were administered intravenously. After achieving appropriate moderate conscious sedation, DANYA probe was advanced without difficulty and without any immediate complications to the esophagus. DANYA study was performed with color flow doppler, pulsed wave doppler and continuous wave doppler. The probe was then removed. Patient tolerated the procedure well. Patient was transferred to the post procedure area in stable and satisfactory condition. Throughout the procedure patient's heart rate, blood pressure, oxygen saturation and ECG were monitored. Total sedation time 10 mins. Complications: none FINDINGS Left Atrium: Moderate to severe left atrial dilatation. No evidence of thrombus or mass seen. Normal forward flow noticed in pulmonic pain with S/D ratio >1. Left Atrial Appendage: Dilated left atrial appendage. No thrombus noticed in left atrial appendage. Inter atrial septum: Intact interatrial septum. No evidence of interatrial septal aneurysm. No evidence of PFO or ASD on color flow Doppler. No evidence of [id number] intracardiac shunting on bubble study. Left Ventricle: Normal global LV size and systolic function Right Atrium: Moderate RA dilatation. No evidence of mass or thrombus. Right Ventricle: Normal global RV size and systolic function Aortic Valve: Structurally normal Trileaflet, mild calcific thickening on leaflet tips. No significant stenosis or regurgitation noticed. Mitral Valve: Mitral annular calcification with bulky calcification involving the base of the posterior mitral leaflet. Normal opening of mitral leaflets. Low probability for rheumatic mitral valve disease. Mean mitral valve pressure gradient at heart rate of 70 bpm 2.5 mmHg. Mitral valve area by planimetry Was more than 1.5 cm. Pulmonic Valve: Not well visualized. Tricuspid Valve: Structurally normal , with mild tricuspid regurgitation. Ascending aorta, Aortic root and Aortic arch: Mild intimal thickening and mild calcification noticed in ascending aorta. Normal size ascending aorta and aortic root. Descending aorta: Mild intimal thickening. No pericardial effusion CONCLUSION: 1. No evidence of thrombus in LA or PEDRO. 2. No evidence of ASD or PFO on color flow or bubble study. No evidence of IV septum aneurysm 3. Degenerative mitral valve annular calcification with heavy calcification of posterior mitral leaflet base. No evidence of rheumatic mitral valve disease 4. Mild degenerative mitral stenosis mean gradient 2.5 mmHg at heart rate 70 bpm. MVA by planimetry 1.5 cm 5. Moderate biatrial dilatation 6. Normal LV size and systolic function Ganesh Kat MD, RPVI, FACC Thank you for allowing [facility] to participate in this patient's care. Feel free to reach out in case of any followup questions.
--- NOTE | 2024-05-22 14:31 | P.PN ---
Subjective Progress Note Date: 05/22/24 Reason for Consult (text): DANYA, event monitor History of present illness: This is a 69-year-old female with no previous cardiac history. She has a past medical history of dementia, developmentally delayed, hypertension, hypothyroidism. We have been asked to evaluate the patient for DANYA and event monitor. Patient presented to the hospital due to right sided weakness and facial droop and has been diagnosed with an acute ischemic stroke status post IV TNK. There was also concern for possible PFO on echocardiogram. Patient was found to have rites ICA stenosis of 65% and left at 50% on CT angiogram he. Vascular surgery is on consult and planning for left TCAR or possible carotid endarterectomy on Saturday. Blood pressure 179/77, heart rate 77, pulse ox 100% on room air. Patient has been started on aspirin, Lipitor, Plavix. Patient is also on IV antibiotics for UTI. -EKG: Sinus rhythm with no acute ST-T wave changes. -Laboratory studies: CBC normal. BUN 18 and creatinine 1.29. Triglycerides 94, cholesterol 132, LDL 66, HDL 47 -Home cardiac medications: Lisinopril 20 mg daily. -Echocardiogram reveals EF 55 to 60% with moderate concentric LVH. Heavy annular calcification and thickening of the mitral valve leaflets with some calc ific mild stenosis. Aortic valve reveals some sclerosis no restriction. Mild mitral and tricuspid regurgitation. No pericardial effusion. Saline contrast suggest possible PFO. 05/22 Patient is scheduled for DANYA today with Dr. Kat to evaluate mitral valve. Blood pressure readings remain elevated at 169/70, heart rate 76, pulse ox 99% on room air. Repeat blood work reveals potassium 4.9, BUN 21 creatinine 1.47. Physical examination: Gen: This is a 69-year-old female in no acute distress VS: reviewed HEENT: Head is atraumatic, normocephalic. Pupils equal, round. Sclerae is anicteric. NECK: Supple. No JVD. LUNGS: Clear to auscultation. No wheezes or rhonchi. No intercostal retractions . HEART: Regular rate and rhythm. No murmur. ABDOMEN: Soft No tenderness. EXTREMITIES: No pedal edema. No calf tenderness. NEUROLOGICAL: Patient is awake, alert. Assessment: Abnormal echocardiogram Embolic stroke Mitral stenosis dementia Developmentally delayed Hypertension Hypothyroidism Plan: Continue current cardiac medications Add amlodipine 2.5 mg daily Discontinue as needed hydralazine Schedule patient for DANYA today with Dr. Kat to evaluate calcific mitral valve and also evaluate for PFO Further recommendations to follow based upon clinical course Nurse practitioner note has been reviewed, I agree with documented findings and plan of care. Patient was seen and examined. Objective - Vital Signs Vital signs: Vital Signs Temp 97.7 F 05/22/24 07:53 Pulse 76 05/22/24 07:53 Resp 18 05/22/24 07:53 BP 169/70 05/22/24 08:30 Pulse Ox 99 05/22/24 07:53 FiO2 Intake & Output 05/21/24 05/22/24 05/22/24 18:59 06:59 18:59 Intake Total 240 10 Output Total 800 Balance 240 -790 Weight 107.5 kg Intake: IV 10 Invasive Line 3 10 Oral 240 Output: Urine 800 Other: Voiding Method External Catheter External Catheter # Voids 1 # Bowel Movements 2 1 - Labs CBC & Chem 7: 05/22/24 05:35 05/22/24 05:35 Labs: Abnormal Lab Results - Last 24 Hours (Table) 05/21/24 05/21/24 05/21/24 Range/Units 11:26 16:17 20:19 MCHC (31.0-37.0) g/dL BUN (7-17) mg/dL Creatinine (0.52-1.04) mg/dL Glucose (74-99) mg/dL POC Glucose (mg/dL) 132 H 131 H 140 H (70-110) mg/dL 05/22/24 05/22/24 05/22/24 Range/Units 05:35 05:35 05:55 MCHC 30.8 L (31.0-37.0) g/dL BUN 21 H (7-17) mg/dL Creatinine 1.47 H (0.52-1.04) mg/dL Glucose 105 H (74-99) mg/dL POC Glucose (mg/dL) 126 H (70-110) mg/dL
[2024-05-22 16:22] LABS: Glucose,Whole Blood 186 mg/dL (70-110)
--- NOTE | 2024-05-22 18:28 | P.PN ---
Subjective Progress Note Date: 05/22/24 This is a 69-year-old female patient was brought into the intensive. Receiving thrombolytics for new onset right-sided weakness and left facial droop. The patient is not have dementia. She is known to have diabetes mellitus with chronic kidney disease. She is also known to have hypertension hyperlipidemia. She has been having episodes of falls and earlier this morning, the patient was noted to have right-sided weakness. CT scan of the head showed mild ventriculomegaly and cerebral atrophy. Chronic small vessel ischemic changes. CTA of the neck showed 65% proximal right ICA and 50% proximal left ICA and the carotid Doppler showed no significant hemodynamically stenosis of the carotids. CTA of the head and neck showed no large vessel intracranial arterial occlusion. Initial NIH score was 7. The patient was given TNK and following that she was admitted to the intensive care unit. Motor function in the right upper extremity is adequate. There is some ongoing weakness in the right lower extremity. She is awake alert and communicating. Family at the bedside. No vision changes. No headaches. No seizure activity. She has been found to have UTI and currently the patient is on IV Rocephin. Afebrile and hemodynamically stable. Normal coagulation profile. Creatinine is at 1.4 consistent with chronic kidney disease with a GFR of 32. Hemoglobin is at 12.8. On 05/20/2024, the patient is being seen for a follow-up. The patient is status post TNK for an acute CVA. She remains awake and alert. No headaches. No altered mentation. Significant weakness in the right lower extremity. Motor function is improved in the right upper extremity which is estimated to be around 4 out of 5. No significant facial asymmetry. Able to swallow. A follow-up CAT scan of the brain was done today and it shows no evidence of any bleeds. There is moderate patchy burden of chronic small vessel ischemic disease along with hypodensity along the left basal ganglia may suggest an acute/subacute infarct. There is also abnormalities in the left corpus callosum. Hemodynamically stable. No significant hypotension. The white cell count of 9.7, hemoglobin 12.3, platelet count is 219. Creatinine is 1.3 with a BUN of 21. LDL cholesterol is 66. HbA1c was at 5.9. On 05/21/2024, the patient is being seen for a follow-up. Neurologic status is essentially unchanged. No new onset neurological deficits. Continues to have weakness in the right lower extremity. Able to swallow. Able to tolerate diet. Echocardiogram was also completed and the patient was found to have normal LV, m oderate LVH, moderate dilatation of both atria, mild mitral tricuspid regurgitation, saline contrast suggestive of possible PFO. MRI of the brain was also completed and the patient was noted to have an acute/subacute ischemia of the posterior aspect of the left caudate nucleus and left splenium corpus callosum. Hemodynamically stable. No fever. The patient is currently on room air oxygen with a pulse ox of 98%. Cardiac rhythm is sinus. WBC count of 10.4, hemoglobin 11.5 and a platelet count of 223. BUN is 18 with a creatinine of 1.2 and a sodium level is at 139. Currently on aspirin and Plavix was also added. At the same time, the patient was found to have a Klebsiella pneumonia ESBL producing urinary tract infection and the patient is currently on IV Invanz. 05/22/2024, patient is being seen for a follow-up. Neurologically, some modest improvement in the right lower extremity motor function. Still unable to raise her leg against gravity. Hemodynamically stable. Still on a cardiac rhythm that is sinus. DANYA was done. There is no evidence of ASD or PFO. There is degenerative mitral valve annular calcification. There is mild mitral stenosis and moderate bilateral atrial dilatation and normal LV function. No evidence of any intracardiac thrombus. The patient remains on a combination of aspirin and Plavix. Remains on IV Invanz for a ESBL producing urine tract infection. I will discuss today 0.1, hemoglobin 11.8 and a platelet count of 248. BUN is 21 with a creatinine of 1.47 and sodium levels at 139 with a potassium level of 4.9. Objective - Vital Signs Vital signs: Vital Signs Temp 97.9 F 05/22/24 11:28 Pulse 63 05/22/24 11:28 Resp 20 05/22/24 11:28 BP 142/63 05/22/24 11:28 Pulse Ox 99 05/22/24 11:28 FiO2 Intake & Output 05/21/24 05/22/24 05/22/24 18:59 06:59 18:59 Intake Total 240 10 118 Output Total 800 Balance 240 -790 118 Weight 107.5 kg Intake: IV 10 Invasive Line 3 10 Oral 240 118 Output: Urine 800 Other: Voiding Method External Catheter External Catheter # Voids 1 # Bowel Movements 2 1 - Exam General: Lying in bed and is not in acute distress. Patient has a BMI of 34.7. Currently on room air oxygen. Head exam was generally normal. There was no scleral icterus or corneal arcus. Mucous membranes were moist. Neck was supple and without jugular venous distension, thyromegaly, or carotid bruits. Carotids were easily palpable bilaterally. There was no adenopathy. Lungs were clear to auscultation and percussion, and with normal diaphragmatic excursion. No wheezes or rales were noted. Cardiac exam revealed the PMI to be normally situated and sized. The rhythm was regular and no extrasystoles were noted during several minutes of auscultation. The first and second heart sounds were normal and physiologic splitting of the s econd heart sound was noted. There were no murmurs, rubs, clicks, or gallops. Abdominal exam revealed normal bowel sounds. The abdomen was soft, non-tender, and without masses, organomegaly, or appreciable enlargement of the abdominal aorta. Examination of the extremities revealed easily palpable radial, femoral and pedal pulses. There was no cyanosis, clubbing or edema. Examination of the skin revealed no evidence of significant rashes, suspicious appearing nevi or other concerning lesions. Neurologic examination is limited since patient has underlying dementia. Patient is awake alert oriented to self. She is following simple commands. No aphasia from limited language The pupils are round about 4 mm and reactive to light. Visual gerard are full to confrontation. Extraocular movements intact no nystagmus. Normal facial sensation to touch. Patient does have mild left lower facial droop. No dysarthria Tongue is midline moves [id number] with any difficulty Motor: Right upper extremity right arm extension patient has about a 3 right hand relocation services specialist is 3-4. Patient does have her right upper extremity drift. Left arm flexion is about a 4 -. Right lower extremity is 0-1. Left upper lower extremity is 5 out of 5. Sensation: She could not tell me if it feels normal to touch but it seems that she had normal painful stimuli bilaterally. Reflexes 2 positive throughout except for the left lower extremity is a 1 positive. - Labs CBC & Chem 7: 05/22/24 05:35 05/22/24 05:35 Labs: Abnormal Lab Results - Last 24 Hours (Table) 05/21/24 05/21/24 05/22/24 Range/Units 16:17 20:19 05:35 MCHC 30.8 L (31.0-37.0) g/dL BUN (7-17) mg/dL Creatinine (0.52-1.04) mg/dL Glucose (74-99) mg/dL POC Glucose (mg/dL) 131 H 140 H (70-110) mg/dL 05/22/24 05/22/24 05/22/24 Range/Units 05:35 05:55 11:34 MCHC (31.0-37.0) g/dL BUN 21 H (7-17) mg/dL Creatinine 1.47 H (0.52-1.04) mg/dL Glucose 105 H (74-99) mg/dL POC Glucose (mg/dL) 126 H 115 H (70-110) mg/dL Assessment and Plan Plan: Acute CVA with right-sided weakness and left facial droop, status post TNK treatment. Initial NIH score was 7. CT scan of the brain showed cerebral atrophy and CT angiogram of the brain showed no intracranial vascular abnormalities and the patient has bilateral carotid artery disease, 65% on the right ICA and 50% of the left. Follow-up CAT scan of the brain showed no acute hemorrhage. Changes in the left corpus callosum and basal ganglia indicating acute/subacute infarct. Neurologically unchanged compared to yesterday. The patient is currently on a combination of aspirin and Plavix. DANYA showed no evidence of any ASD, VSD or PFO. Preserved LV function. No evidence of any intracardiac thrombus. MRI of the brain showed a subacute CVA of the posterior aspect of the left caudate nucleus and left splenium corpus callosum. The patient remains on a combination of aspirin and Plavix. Bilateral carotid artery disease Dementia Diabetes mellitus type 2 Chronic kidney disease Hypothyroidism Hypertension UTI, secondary to Klebsiella pneumonia, ESBL producing Plan Monitor neurological functions Clinically stable Continue aspirin and Plavix MRI of the brain was completed consistent with CVA/subacute involving the posterior aspect of the left caudate nucleus and left splenium corpus callosum. Neurology consultation is appreciated DANYA was noted Cardiac rhythm is sinus pillowcase turner Vascular consultation Continue IV Invanz M will continue to follow
[2024-05-22 20:24] LABS: Glucose,Whole Blood 207 mg/dL (70-110)
[2024-05-23 06:06] LABS: Glucose,Whole Blood 116 mg/dL (70-110)
--- NOTE | 2024-05-23 07:48 | P.PN ---
Subjective Progress Note Date: 05/23/24 Reason for Consult (text): DANYA, event monitor History of present illness: This is a 69-year-old female with no previous cardiac history. She has a past medical history of dementia, developmentally delayed, hypertension, hypothyroidism. We have been asked to evaluate the patient for DANYA and event monitor. Patient presented to the hospital due to right sided weakness and facial droop and has been diagnosed with an acute ischemic stroke status post IV TNK. There was also concern for possible PFO on echocardiogram. Patient was found to have rites ICA stenosis of 65% and left at 50% on CT angiogram he. Vascular surgery is on consult and planning for left TCAR or possible carotid endarterectomy on Saturday. Blood pressure 179/77, heart rate 77, pulse ox 100% on room air. Patient has been started on aspirin, Lipitor, Plavix. Patient is also on IV antibiotics for UTI. -EKG: Sinus rhythm with no acute ST-T wave changes. -Laboratory studies: CBC normal. BUN 18 and creatinine 1.29. Triglycerides 94, cholesterol 132, LDL 66, HDL 47 -Home cardiac medications: Lisinopril 20 mg daily. -Echocardiogram reveals EF 55 to 60% with moderate concentric LVH. Heavy annular calcification and thickening of the mitral valve leaflets with some calc ific mild stenosis. Aortic valve reveals some sclerosis no restriction. Mild mitral and tricuspid regurgitation. No pericardial effusion. Saline contrast suggest possible PFO. 05/22 Patient is scheduled for DNAYA today with Dr. Kat to evaluate mitral valve. Blood pressure readings remain elevated at 169/70, heart rate 76, pulse ox 99% on room air. Repeat blood work reveals potassium 4.9, BUN 21 creatinine 1.47. 05/23 Yesterday, patient underwent a DANYA which revealed: 1. No evidence of thrombus in LA or PEDRO. 2. No evidence of ASD or PFO on color flow or bubble study. No evidence of IV septum aneurysm 3. Degenerative mitral valve annular calcification with heavy calcification of posterior mitral leaflet base. No evidence of rheumatic mitral valve disease 4. Mild degenerative mitral stenosis mean gradient 2.5 mmHg at heart rate 70 bpm. MVA by planimetry 1.5 cm 5. Moderate biatrial dilatation 6. Normal LV size and systolic function Discussed results of DANYA with the patient and also discussed recommendations for insertion of a loop recorder to assess for possibility of atrial fibrillation. Blood pressure 159/70, heart rate 77, pulse ox 95% on room air. Carotid surgery is planned but a date does not seem to have been determined. Patient's daughter will be in to visit her this afternoon and we will plan to discuss the loop recorder with patient's daughter at that time. Physical examination: Gen: This is a 69-year-old female in no acute distress VS: reviewed HEENT: Head is atraumatic, normocephalic. Pupils equal, round. Sclerae is anicteric. NECK: Supple. No JVD. LUNGS: Clear to auscultation. No wheezes or rhonchi. No intercostal retractions. HEART: Regular rate and rhythm. No murmur. ABDOMEN: Soft No tenderness. EXTREMITIES: No pedal edema. No calf tenderness. NEUROLOGICAL: Patient is awake, alert. Assessment: Abnormal echocardiogram Embolic stroke Mitral stenosis dementia Developmentally delayed Hypertension Hypothyroidism Plan: Continue current cardiac medications Continue the addition of amlodipine but increase to 5 mg daily Patient will be scheduled for loop recorder insertion Patient is cleared from cardiology perspective for carotid artery surgery. Further recommendations to follow based upon clinical course Nurse practitioner note has been reviewed, I agree with documented findings and plan of care. Patient was seen and examined. Objective - Vital Signs Vital signs: Vital Signs Temp 98.2 F 05/23/24 04:00 Pulse 77 05/23/24 04:00 Resp 18 05/23/24 04:00 BP 159/70 05/23/24 04:00 Pulse Ox 95 05/23/24 04:00 FiO2 Intake & Output 05/22/24 05/23/24 05/23/24 18:59 06:59 18:59 Intake Total 168 590 Balance 168 590 Weight 70.5 kg Intake: IV 50 Intake, IV Titration 50 Amount Ertapenem 1 gm In Sodium 50 Chloride 0.9% 50 ml @ 100 mls/hr IVPB Q24H [facility] Rx# :[id number] Oral 118 540 Other: Voiding Method External Catheter # Voids 200 # Bowel Movements 1 - Labs CBC & Chem 7: 05/22/24 05:35 05/22/24 05:35 Labs: Abnormal Lab Results - Last 24 Hours (Table) 05/22/24 05/22/24 05/22/24 Range/Units 11:34 16:20 20:21 POC Glucose (mg/dL) 115 H 186 H 207 H (70-110) mg/dL 05/23/24 Range/Units 05:58 POC Glucose (mg/dL) 116 H (70-110) mg/dL
[2024-05-23] MEDS: amLODIPine 5 MG TAB PO SCH (08:40)
[2024-05-23 09:36] LABS: African American GFR (CKD) 43 (>60 ml/min/1.73 sqM); Anion Gap 6 mmol/L; Blood Urea Nitrogen 27 mg/dL (7-17); Calcium 8.9 mg/dL (8.4-10.2); Carbon Dioxide 27 mmol/L (22-30); Chloride 102 mmol/L (98-107); Glucose 173 mg/dL (74-99); Non-African American GFR(CKD) 37 (>60 ml/min/1.73 sqM); Potassium 5.1 mmol/L (3.5-5.1); Sodium 135 mmol/L (137-145)
--- NOTE | 2024-05-23 11:08 | P.PN ---
Subjective Progress Note Date: 05/23/24 History of present illness; Patient is a 69-year-old female with a past medical history significant for pio betes mellitus, thyroid disorder. She presented to the emergency department after falling at home. She states that she has frequent falls, with the most recent one being last night which brought her to the emergency department today. She states that she was in her apartment and attempting to clean her apartment, at that time she states that she lost her footing and fell on her left side. She states that she did not hit her head, however she does attest to having felt some dizziness prior to falling. She was found on the ground by her son-in-law, and she is unsure of how long she was on the ground for but believes it to be at least 2 hours stating that she was too weak to get herself up. She has no acute pain anywhere on her body, however notes some generalized soreness in her lower extremities and her right shoulder. She lives alone and states that she is able to handle most activities of daily living by herself. She states that she has not taken any anticoagulation medications. 05/19/24 - Patient seen and examined at bedside. She had no events overnight, stated she was feeling better. With no acute complaints. Was contacted by the nurse at approximately 10:45 AM noting there was new onset weakness in the patient's right side, asking if this was new compared to yesterd ay when the patient was previously seen. Went down and saw the patient in the observation unit to assess, her right arm was in decerebrate positioning and noted she had an inability to move right lower extremity, drift when extending her right upper extremity. Additionally, patient was noted to have left-sided facial droop, as well as left-sided deviation of the tongue when protruding. During this time she was able to fully converse and answer questions appropriately, although maintaining her circumstantial speech as well as confabulation. At that time code stroke was called. 05/20/24 - Patient seen and examined at bedside this morning, remaining in the ICU for close monitoring. She states she is feeling better than yesterday. Notes increased ability to move her right upper and lower extremity. It has been noted by the nursing staff that she has intermittent moments of the ability to have function of her right lower extremity. She has no acute complaints at this time and states that the suprapubic tenderness she had been experiencing has resolved. 05/21/24 - Patient seen and examined at bedside this morning, she was moved out of the ICU yesterday afternoon and is now on cardiac step down, 3 south. States she is feeling better this morning than she had been. Has no acute complaints at this time. 05/22/24 - Patient seen and examined at bedside this morning. States she is feeling well. No new changes in the functional status for right lower extremity as it is about the same as yesterday. She is scheduled to undergo a DANYA this morning to determine if any further steps are to be taken with vascular surgery. She has no acute complaints at this time. 05/23/24 - Patient seen and examined at bedside this morning. States that she is feeling well. No new changes functional status the right lower extremity, but the same as yesterday. DANYA completed yesterday showed no evidence of thrombus in LA or PEDRO, no evidence of ASD or PFO on color flow or bubble study, dege nerative mitral valve annular calcification with heavy calcification of posterior mitral leaflet base without evidence of rheumatic mitral valve disease. Per cardiology, plan is for placement of loop recorder to assess for possibility of atrial fibrillation. Carotid surgery seems to be planned, ho charito without a specific date. PHYSICAL EXAMINATION: GENERAL: The patient is alert and oriented x3, with circumstantial speech with confabulation HEENT: Pupils are round and equally reacting to light. EOMI. No scleral icterus. No conjunctival pallor. CARDIOVASCULAR: S1 and S2 present. No murmurs, rubs, or gallops. PULMONARY: Chest is clear to auscultation, no wheezing or crackles. ABDOMEN: Soft, nontender, nondistended, normoactive bowel sounds. No palpable organomegaly. MUSCULOSKELETAL: No joint swelling or deformity. EXTREMITIES: No cyanosis, clubbing, or pedal edema. 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 New data today: Labs: Imaging: DANYA completed yesterday showed no evidence of thrombus in LA or PEDRO, no evidence of ASD or PFO on color flow or bubble study, degenerative mitral valve annular calcification with heavy calcification of posterior mitral leaflet base without evidence of rheumatic mitral valve disease. Assessment and plan 69-year-old female with PMH of diabetes mellitus, thyroid disorder. Presents emergency department following a fall at home in which she notes to having some dizziness prior to falling. #New onset right-sided weakness #History of previous stroke ~30 years ago -Continue with aspirin 81 mg daily -Per neurology recommendation patient started on Plavix 75 mg daily -Initiated 40 mg Lipitor daily -Continue neurochecks -Triglycerides 94.7, cholesterol 132, LDL 66, VLDL 18.94, HDL 47.10 -Hemoglobin A1c 5.9 -Review CBC and BMP -PT, OT, ST on consult -Cardiology consulted for possible PFO and for DANYA; per neurology's re commendation patient should be considered for 30-day event monitor -Per the neurology team, spoke with vascular surgery (Dr. Liao) and she states that it is possible of the right ICA is greater than 50% stenosed and if the DANYA is unremarkable, intervention may be considered with left-sided TCAR, and possible carotid endarterectomy -DANYA completed with results read and reviewed #Syncopy v Mechanical fall #Debility -Echocardiogram pending -Orthostatics pending -Cardiac monitoring -On Aricept, monitor for bradycardic episodes - if occurring, consider D/C #Complicated urinary tract infection (gram-negative negative bacilli) -Patient will continue with Rocephin 1 g IVPB every 24 hours (received 3 days); with symptom improvement within 48 hours, consider course of 5-10 days -Urine culture positive for ESBL MDRO Klebsiella pneumonia, resistant to Rocephin, Rocephin discontinued -Continue with 1 g ertapenem daily (day 3) -Infectious diseases been consulted; per infectious disease plan is for patient to be discharged with IV antibiotics -Plan for placement of a midline once discharge plan is known (awaiting determination from vascular surgery on their plan for possible TCAR or endarterectomy) -Continue on NS 20 cc/h -Monitor CBC, BMP #Diabetes mellitus -Patient remains on sliding scale -Continue with glucose monitoring Chronic conditions: #Dementia - continue home medications #Hypothyroidism - Continue home medications #Chronic kidney disease stage IIIb GI prophylaxis: Not indicated DVT prophylaxis: Heparin 5000 units every 12 hours Dictation was produced using [employer] dictation software. please excuse any grammatical, word or spelling errors. I saw and evaluated the patient during the wise and critical portions of this encounter, and discussed the case in detail with the resident author of this note, I agree with the Assessment and Plan, and my changes, if any, are highlighted below. No changes clinically. BMP shows Na 135, BUN 27, Cr 1.44, glu 173. DANYA shows no thrombus, no ASD or PFO, heavily calcified mitral leaflet base. Awaiting vascular surgery plans. Will need midline for short course of IV antibiotics on discharge due to MDRO UTI. Objective - Vital Signs Vital signs: Vital Signs Temp 98.2 F 05/23/24 04:00 Pulse 77 05/23/24 04:00 Resp 18 05/23/24 04:00 BP 159/70 05/23/24 04:00 Pulse Ox 95 05/23/24 04:00 FiO2 Intake & Output 05/22/24 05/23/24 05/23/24 18:59 06:59 18:59 Intake Total 168 590 Balance 168 590 Weight 70.5 kg Intake: IV 50 Intake, IV Titration 50 Amount Ertapenem 1 gm In Sodium 50 Chloride 0.9% 50 ml @ 100 mls/hr IVPB Q24H [facility] Rx# :[id number] Oral 118 540 Other: Voiding Method External Catheter # Voids 200 # Bowel Movements 1 - Labs CBC & Chem 7: 05/22/24 05:35 05/23/24 09:09 Labs: Abnormal Lab Results - Last 24 Hours (Table) 05/22/24 05/22/24 05/22/24 Range/Units 11:34 16:20 20:21 POC Glucose (mg/dL) 115 H 186 H 207 H (70-110) mg/dL 05/23/24 Range/Units 05:58 POC Glucose (mg/dL) 116 H (70-110) mg/dL
[2024-05-23 11:17] LABS: Glucose,Whole Blood 142 mg/dL (70-110)
--- NOTE | 2024-05-23 11:51 | P.PN ---
Subjective Progress Note Date: 05/23/24 Patient seen and examined as a follow-up for possible stroke and carotid stenosis. No acute changes through the night. No new focal deficits. Objective - Vital Signs Vital signs: Vital Signs Temp 98.2 F 05/23/24 08:27 Pulse 70 05/23/24 08:27 Resp 16 05/23/24 08:27 BP 172/72 05/23/24 08:27 Pulse Ox 96 05/23/24 08:27 FiO2 Intake & Output 05/22/24 05/23/24 05/23/24 18:59 06:59 18:59 Intake Total 168 590 Balance 168 590 Weight 70.5 kg Intake: IV 50 Intake, IV Titration 50 Amount Ertapenem 1 gm In Sodium 50 Chloride 0.9% 50 ml @ 100 mls/hr IVPB Q24H [facility] Rx# :[id number] Oral 118 540 Other: Voiding Method External Catheter External Catheter # Voids 200 1 # Bowel Movements 1 - Exam General appearance: The patient is alert, oriented, appears in no acute distress. Obese. HET: Head is normocephalic and atraumatic. Pupils are equal and reactive. Neck: Supple. No audible bruit. Heart: Regular. Lungs: Equal expansion, normal respiratory effort. Abdomen: Soft, nontender, nondistended. Extremities: Normal skin color and turgor. Palpable bilateral radial and DP pulses. Neurological: Patient is alert and oriented. Speech is fluent, answers questions appropriately. - Labs CBC & Chem 7: 05/22/24 05:35 05/23/24 09:09 Labs: Abnormal Lab Results - Last 24 Hours (Table) 05/22/24 05/22/24 05/23/24 Range/Units 16:20 20:21 05:58 Sodium (137-145) mmol/L BUN (7-17) mg/dL Creatinine (0.52-1.04) mg/dL Glucose (74-99) mg/dL POC Glucose (mg/dL) 186 H 207 H 116 H (70-110) mg/dL 05/23/24 05/23/24 Range/Units 09:09 11:14 Sodium 135 L (137-145) mmol/L BUN 27 H (7-17) mg/dL Creatinine 1.44 H (0.52-1.04) mg/dL Glucose 173 H (74-99) mg/dL POC Glucose (mg/dL) 142 H (70-110) mg/dL Assessment and Plan Assessment: 1. Right ICA stenosis 65%, left greater than 50% per CTA 2. Acute/subacute ischemic stroke within the posterior aspect of left caudate nucleus body and left splenium of the corpus callosum with symptoms of right sided weakness Plan: Patient seen and examined. Feeling well. States she has no issues and wants to go home. She does not want to undergo surgical intervention at this time. We did discuss that she likely has greater than 50% stenosis of her left ICA along with symptomatology on the CT and MRI findings. This potentially could put her at risk of recurrent stroke. She seemingly understands. We did briefly discuss what options we have for surgical intervention including open surgical repair and stent. At this time again she does not wish to go forward with intervention. Continue with medical management for now and follow-up in the office for further discussions.
--- NOTE | 2024-05-23 13:39 | P.PN ---
Subjective Progress Note Date: 05/23/24 This is a 69-year-old female patient was brought into the intensive. Receiving thrombolytics for new onset right-sided weakness and left facial droop. The patient is not have dementia. She is known to have diabetes mellitus with chronic kidney disease. She is also known to have hypertension hyperlipidemia. She has been having episodes of falls and earlier this morning, the patient was noted to have right-sided weakness. CT scan of the head showed mild ventriculomegaly and cerebral atrophy. Chronic small vessel ischemic changes. CTA of the neck showed 65% proximal right ICA and 50% proximal left ICA and the carotid Doppler showed no significant hemodynamically stenosis of the carotids. CTA of the head and neck showed no large vessel intracranial arterial occlusion. Initial NIH score was 7. The patient was given TNK and following that she was admitted to the intensive care unit. Motor function in the right upper extremity is adequate. There is some ongoing weakness in the right lower extremity. She is awake alert and communicating. Family at the bedside. No vision changes. No headaches. No seizure activity. She has been found to have UTI and currently the patient is on IV Rocephin. Afebrile and hemodynamically stable. Normal coagulation profile. Creatinine is at 1.4 consistent with chronic kidney disease with a GFR of 32. Hemoglobin is at 12.8. On 05/20/2024, the patient is being seen for a follow-up. The patient is status post TNK for an acute CVA. She remains awake and alert. No headaches. No altered mentation. Significant weakness in the right lower extremity. Motor function is improved in the right upper extremity which is estimated to be around 4 out of 5. No significant facial asymmetry. Able to swallow. A follow-up CAT scan of the brain was done today and it shows no evidence of any bleeds. There is moderate patchy burden of chronic small vessel ischemic disease along with hypodensity along the left basal ganglia may suggest an acute/subacute infarct. There is also abnormalities in the left corpus callosum. Hemodynamically stable. No significant hypotension. The white cell count of 9.7, hemoglobin 12.3, platelet count is 219. Creatinine is 1.3 with a BUN of 21. LDL cholesterol is 66. HbA1c was at 5.9. On 05/21/2024, the patient is being seen for a follow-up. Neurologic status is essentially unchanged. No new onset neurological deficits. Continues to have weakness in the right lower extremity. Able to swallow. Able to tolerate diet. Echocardiogram was also completed and the patient was found to have normal LV, m oderate LVH, moderate dilatation of both atria, mild mitral tricuspid regurgitation, saline contrast suggestive of possible PFO. MRI of the brain was also completed and the patient was noted to have an acute/subacute ischemia of the posterior aspect of the left caudate nucleus and left splenium corpus callosum. Hemodynamically stable. No fever. The patient is currently on room air oxygen with a pulse ox of 98%. Cardiac rhythm is sinus. WBC count of 10.4, hemoglobin 11.5 and a platelet count of 223. BUN is 18 with a creatinine of 1.2 and a sodium level is at 139. Currently on aspirin and Plavix was also added. At the same time, the patient was found to have a Klebsiella pneumonia ESBL producing urinary tract infection and the patient is currently on IV Invanz. 05/22/2024, patient is being seen for a follow-up. Neurologically, some modest improvement in the right lower extremity motor function. Still unable to raise her leg against gravity. Hemodynamically stable. Still on a cardiac rhythm that is sinus. DANYA was done. There is no evidence of ASD or PFO. There is degenerative mitral valve annular calcification. There is mild mitral stenosis and moderate bilateral atrial dilatation and normal LV function. No evidence of any intracardiac thrombus. The patient remains on a combination of aspirin and Plavix. Remains on IV Invanz for a ESBL producing urine tract infection. I will discuss today 0.1, hemoglobin 11.8 and a platelet count of 248. BUN is 21 with a creatinine of 1.47 and sodium levels at 139 with a potassium level of 4.9. 05/23/2024, the patient is neurologically unchanged. Continues to have weakness in the right lower extremity. No other specific complaints otherwise for now. No headaches. No new onset neurological deficits. Remains on aspirin and Plavix. Cardiac rhythm remains sinus. The patient will need a midline for IV Invanz treatment. The patient has a ESBL producing Klebsiella urinary tract infection. The patient is afebrile. DANYA was done. No evidence of any ASD or PFO. No other intracardiac thrombus. Objective - Vital Signs Vital signs: Vital Signs Temp 98.2 F 05/23/24 08:27 Pulse 68 05/23/24 12:25 Resp 16 02/01/25 12:25 BP 169/72 05/23/24 12:25 Pulse Ox 98 05/23/24 12:25 FiO2 Intake & Output 05/22/24 05/23/24 05/23/24 18:59 06:59 18:59 Intake Total 168 590 240 Balance 168 590 240 Weight 70.5 kg Intake: IV 50 Intake, IV Titration 50 Amount Ertapenem 1 gm In Sodium 50 Chloride 0.9% 50 ml @ 100 mls/hr IVPB Q24H [facility] Rx# :[id number] Oral 118 540 240 Other: Voiding Method External Catheter External Catheter # Voids 200 1 # Bowel Movements 1 - Exam General: Lying in bed and is not in acute distress. Patient has a BMI of 34.7. Currently on room air oxygen. Head exam was generally normal. There was no scleral icterus or corneal arcus. Mucous membranes were moist. Neck was supple and without jugular venous distension, thyromegaly, or carotid bruits. Carotids were easily palpable bilaterally. There was no adenopathy. Lungs were clear to auscultation and percussion, and with normal diaphragmatic excursion. No wheezes or rales were noted. Cardiac exam revealed the PMI to be normally situated and sized. The rhythm was regular and no extrasystoles were noted during several minutes of auscultation. The first and second heart sounds were normal and physiologic splitting of the s econd heart sound was noted. There were no murmurs, rubs, clicks, or gallops. Abdominal exam revealed normal bowel sounds. The abdomen was soft, non-tender, and without masses, organomegaly, or appreciable enlargement of the abdominal aorta. Examination of the extremities revealed easily palpable radial, femoral and pedal pulses. There was no cyanosis, clubbing or edema. Examination of the skin revealed no evidence of significant rashes, suspicious appearing nevi or other concerning lesions. Neurologic examination is limited since patient has underlying dementia. Patient is awake alert oriented to self. She is following simple commands. No aphasia from limited language The pupils are round about 4 mm and reactive to light. Visual gerard are full to confrontation. Extraocular movements intact no nystagmus. Normal facial sensation to touch. Patient does have mild left lower facial droop. No dysarthria Tongue is midline moves [id number] with any difficulty Motor: Right upper extremity right arm extension patient has about a 3 right hand intake manager is 3-4. Patient does have her right upper extremity drift. Left arm flexion is about a 4 -. Right lower extremity is 0-1. Left upper lower extremity is 5 out of 5. Sensation: She could not tell me if it feels normal to touch but it seems that she had normal painful stimuli bilaterally. Reflexes 2 positive throughout except for the left lower extremity is a 1 positive. - Labs CBC & Chem 7: 05/22/24 05:35 05/23/24 09:09 Labs: Abnormal Lab Results - Last 24 Hours (Table) 05/22/24 05/22/24 05/23/24 Range/Units 16:20 20:21 05:58 Sodium (137-145) mmol/L BUN (7-17) mg/dL Creatinine (0.52-1.04) mg/dL Glucose (74-99) mg/dL POC Glucose (mg/dL) 186 H 207 H 116 H (70-110) mg/dL 05/23/24 05/23/24 Range/Units 09:09 11:14 Sodium 135 L (137-145) mmol/L BUN 27 H (7-17) mg/dL Creatinine 1.44 H (0.52-1.04) mg/dL Glucose 173 H (74-99) mg/dL POC Glucose (mg/dL) 142 H (70-110) mg/dL Assessment and Plan Plan: Acute CVA with right-sided weakness and left facial droop, status post TNK treatment. Initial NIH score was 7. CT scan of the brain showed cerebral atrophy and CT angiogram of the brain showed no intracranial vascular abnormalities and the patient has bilateral carotid artery disease, 65% on the right ICA and 50% of the left. Follow-up CAT scan of the brain showed no acute hemorrhage. Changes in the left corpus callosum and basal ganglia indicating acute/subacute infarct. Neurologically unchanged compared to yesterday. The patient is currently on a combination of aspirin and Plavix. DANYA showed no evidence of any ASD, VSD or PFO. Preserved LV function. No evidence of any intracardiac thrombus. MRI of the brain showed a subacute CVA of the posterior aspect of the left caudate nucleus and left splenium corpus callosum. The patient remains on a combination of aspirin and Plavix. Neurologically unchanged Bilateral carotid artery disease, vascular surgery is on the case, likely nonsurgical Dementia Diabetes mellitus type 2 Chronic kidney disease Hypothyroidism Hypertension UTI, secondary to Klebsiella pneumonia, ESBL producing Plan Monitor neurological functions Clinically stable Continue aspirin and Plavix MRI of the brain was completed consistent with CVA/subacute involving the posterior aspect of the left caudate nucleus and left splenium corpus callosum. 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
--- NOTE | 2024-05-23 14:56 | P.PN ---
Subjective Progress Note Date: 05/23/24 The patient is a 69-year-old female who is seen in neurologic follow-up, in cross coverage for Dr. Contreras, with the collaboration of Sofia Davis, via teleneurology. Please see Dr. Contreras's consult for detailed history. The chart has been reviewed. The patient reports that she is doing fine today. She does report some weakness of her "left leg". She also reports that she has been up walking with physical therapy. According to review of the original consultation, the patient has baseline dementia. Physical therapy did evaluate the patient on 1 occasion. They report that she is unable to stand because of right leg weakness. The patient denies weakness in her upper extremities. MRI of the brain reveals ischemic infarct involving the left caudate nucleus and left splenium of the corpus callosum. Transesophageal echocardiogram was performed yesterday. Conclusions reveal: 1. No evidence of thrombus in the left atrium or left atrial appendage. 2. No evidence of ASD or PFO. No evidence of a septal aneurysm. 3. Degenerative mitral valve annular calcifications with heavy calcification of posterior mitral leaflet 4. Mild degenerative mitral stenosis 5. Moderate biatrial dilatation 6. Normal LV size and systolic function. Objective - Vital Signs Vital signs: Vital Signs Temp 98.2 F 05/23/24 08:27 Pulse 68 05/23/24 12:25 Resp 16 05/23/24 12:25 BP 169/72 05/23/24 12:25 Pulse Ox 98 05/23/24 12:25 FiO2 Intake & Output 05/22/24 05/23/24 05/23/24 18:59 06:59 18:59 Intake Total 168 590 240 Balance 168 590 240 Weight 70.5 kg Intake: IV 50 Intake, IV Titration 50 Amount Ertapenem 1 gm In Sodium 50 Chloride 0.9% 50 ml @ 100 mls/hr IVPB Q24H [facility] Rx# :[id number] Oral 118 540 240 Other: Voiding Method External Catheter External Catheter # Voids 200 1 # Bowel Movements 1 - Exam General: The patient is reclining in bed. She is well-nourished, well-developed and in no acute distress. HEENT: Head is atraumatic, normocephalic. Fundus not visualized. There is no scleral icterus. Mucous members are moist. Heart: Regular rate and rhythm Extremities: There is a very visible area of ecchymosis involving the left knee. Neurological examination Mental status: The patient's speech is clear. She is able to speak in complete, fluent sentences. The patient is however, not oriented. Cranial nerves: Pupils are equal at 3 mm and reactive. Visual gerard are full to confrontation. Extraocular movements are intact. Facial sensation is grossly intact. There is a left facial droop. Motor: Upper extremity strength is 5/5 bilaterally. Lower extremity strength (right/left): Hip flexor 0/4. Ankle plantar flexor 0/5. Ankle dorsiflexor 0/5. Coordination: [id number] and rapid alternating movements are intact. There is no pronator drift. Deep tendon reflexes: 2+/4+ in the left upper and lower extremities. Right- sided reflexes 3+/4+. Gait: Not assessed - Labs CBC & Chem 7: 05/22/24 05:35 05/23/24 09:09 Labs: Abnormal Lab Results - Last 24 Hours (Table) 05/22/24 05/22/24 05/23/24 Range/Units 16:20 20:21 05:58 Sodium (137-145) mmol/L BUN (7-17) mg/dL Creatinine (0.52-1.04) mg/dL Glucose (74-99) mg/dL POC Glucose (mg/dL) 186 H 207 H 116 H (70-110) mg/dL 05/23/24 05/23/24 Range/Units 09:09 11:14 Sodium 135 L (137-145) mmol/L BUN 27 H (7-17) mg/dL Creatinine 1.44 H (0.52-1.04) mg/dL Glucose 173 H (74-99) mg/dL POC Glucose (mg/dL) 142 H (70-110) mg/dL Assessment and Plan Assessment: 1. Acute infarct involving the left caudate nucleus and left splenium of the corpus callosum, resulting in right-sided weakness leg greater than arm, status post IV TNK. Her initial NIH stroke scale was a 7 and the repeat was a 5. 2. Right ICA stenosis of about 65 and left ICA of 50% per CT angiography 3. Likely acute urinary tract infection 4. Recurrent falls 5. Underlying history of dementia and per the resident from primary team he states the patient confabulates at baseline 6. Hypothyroidism 7. Diabetes mellitus Plan: 1. Continue aspirin 81 mg and Plavix 75 mg for 21 days, then continue with Plavix 75 mg, monotherapy 2. Continue high intensity statin 3. Physical therapy treatment for strengthening 4. Recommend 30-day event monitor at discharge 5. The patient requires safe discharge plan. 6. Neurology will sign off at this time. Please call with questions or concerns. Time with Patient: Greater than 30 (45 minutes were spent caring for this patient today including, obtaining a history, examining patient, reviewing imaging, chart documentation, labs, placing orders and creating this note)
[2024-05-23 16:17] LABS: Glucose,Whole Blood 155 mg/dL (70-110)
[2024-05-23 20:35] LABS: Glucose,Whole Blood 183 mg/dL (70-110)
[2024-05-24 06:08] LABS: Glucose,Whole Blood 117 mg/dL (70-110)
[2024-05-24 07:54] LABS: African American GFR (CKD) 46 (>60 ml/min/1.73 sqM); Anion Gap 6 mmol/L; Blood Urea Nitrogen 27 mg/dL (7-17); Calcium 9.3 mg/dL (8.4-10.2); Carbon Dioxide 27 mmol/L (22-30); Chloride 103 mmol/L (98-107); Glucose 114 mg/dL (74-99); Non-African American GFR(CKD) 40 (>60 ml/min/1.73 sqM); Sodium 136 mmol/L (137-145)
--- NOTE | 2024-05-24 09:04 | P.PN ---
Subjective Progress Note Date: 05/24/24 This is Dawit Carpenter NP, I'm dictating on behalf of Dr. Rose's H&P and A&P. Patient was interviewed and examined. Patient is a pleasant 69-year-old female with no previous cardiac history who was brought to the hospital and found to have a stroke. DANYA was completed 2 days ago with no findings of thrombus or PFO. This morning patient denies any fever, chills, cough. No chest pain or heart palpitations. GENERAL: Well-appearing, well-nourished and in no acute distress. NECK: Supple without JVD or thyromegaly. LUNGS: Breath sounds clear to auscultation bilaterally. Respiration equal and unlabored. No wheezes, rales or rhonchi. HEART: Regular rate and rhythm without murmurs, rubs or gallops. S1 and S2 heard. EXTREMITIES: Normal range of motion, no edema. No clubbing or cyanosis. Peripheral pulses intact and strong. VITALS: Temp 98.1, pulse 76, respirations 16, blood pressure 170/73, O2 saturation 96% on room air TELEMETRY: Sinus mechanism LABS: Sodium 136, potassium 5, BUN 27, creatinine 1.35 IMPRESSION: 1. Abnormal echocardiogram 2. Embolic stroke 3. Mitral stenosis dementia 4. Developmentally delayed 5. Hypertension 6. Hypothyroidism PLAN: Considering placement of loop implant, this will be better for the patient secondary to her developmental disability, she will likely need this long-term. Continue current medications as prescribed. Further recommendations based on patient's clinical course. Objective - Vital Signs Vital signs: Vital Signs Temp 98.1 F 05/24/24 04:00 Pulse 76 05/24/24 04:00 Resp 16 05/24/24 04:00 BP 170/73 05/24/24 04:00 Pulse Ox 96 05/24/24 04:00 FiO2 Intake & Output 05/23/24 05/24/24 05/24/24 18:59 06:59 18:59 Intake Total 462 590 Output Total 400 250 Balance 62 340 Weight 68 kg Intake: Intake, IV Titration 50 Amount Ertapenem 1 gm In Sodium 50 Chloride 0.9% 50 ml @ 100 mls/hr IVPB Q24H [facility] Rx# :[id number] Oral 462 540 Output: Urine 400 250 Other: Voiding Method External Catheter External Catheter # Voids 1 1 # Bowel Movements 1 - Labs CBC & Chem 7: 05/22/24 05:35 05/24/24 06:09 Labs: Abnormal Lab Results - Last 24 Hours (Table) 05/23/24 05/23/24 05/23/24 Range/Units 09:09 11:14 16:16 Sodium 135 L (137-145) mmol/L BUN 27 H (7-17) mg/dL Creatinine 1.44 H (0.52-1.04) mg/dL Glucose 173 H (74-99) mg/dL POC Glucose (mg/dL) 142 H 155 H (70-110) mg/dL 05/23/24 05/24/24 05/24/24 Range/Units 20:34 05:56 06:09 Sodium 136 L (137-145) mmol/L BUN 27 H (7-17) mg/dL Creatinine 1.35 H (0.52-1.04) mg/dL Glucose 114 H (74-99) mg/dL POC Glucose (mg/dL) 183 H 117 H (70-110) mg/dL
[2024-05-24 11:25] LABS: Glucose,Whole Blood 160 mg/dL (70-110)
--- NOTE | 2024-05-24 11:43 | P.PN ---
Subjective Progress Note Date: 05/24/24 Patient was seen and examined. Clinically no improvement over the last few days with regard to RLE weakness. BMP Na 136, BUN 27, Cr 1.35, glu 114. General: non toxic, no distress, appears at stated age Derm: warm, dry Head: atraumatic, normocephalic, symmetric Eyes: EOMI, no lid lag, anicteric sclera Mouth: no lip lesion, mucus membranes moist Cardiovascular: S1S2 reg, no murmur Lungs: Decreasd BS bilaterally, no accessory muscle use Ext: no gross muscle atrophy, no edema, no contractures Neuro: Strength 5/5 in RU+LUE, 4/5 LLE, 0/5 RLE Psych: Alert, oriented x 2 Based on my assessment of this patient, this patient meets a high complexity level of care. CVA involving left caudate nucleus and left splenium of the corpus callosum: Status post TKA. ASA 81 mg PO QD. Lipitor 40 mg PO QD. Plavix 75 mg PO QD. PT/OT/ST on board. Neurology on board. Right ICA stenosis: ASA, Lipitor and Plavix as above. Per Vascular, patient does not want any surgical intervention. Will need to discuss with Guardian on Saturday. UTI: UCx growing MDRO Klebsiella. Ertapenem 1g IV QD. Per ID, midline for short course of IV antibiotics on discharge. Hypertension: Amlodipine 5 mg PO QD. Dementia: Abilify 2 mg PO QD. Aricept 10 mg PO QHS. Hypothyroid: Synthroid 25 mcg PO QD. Diabetes mellitus: ISS with Accuchecks ACHS. CKD stage IIIb at baseline. Plans for discharge to [place] on Saturday. PACE Dr. Amador is aware. Needs midline and set up IV Abx prior to discharge. CODE STATUS: FULL LYNDSEY DVT Prophylaxis: Heparin SQ GI Prophylaxis: Designated medical POA if patient is not able to make medical decisions for the mselves: Guardian I have reviewed the following databases computer consultant notes: Neuro, Vascular, Cardio note. I have reviewed the results of the following tests: BMP. I have ordered the following tests: I have discussed the care of this patient with the following independent historian: I have independently interpreted the following test below: I have discussed the management of this patient with the following physician: Objective - Vital Signs Vital signs: Vital Signs Temp 98.1 F 05/24/24 04:00 Pulse 76 05/24/24 04:00 Resp 16 05/24/24 04:00 BP 170/73 05/24/24 04:00 Pulse Ox 96 05/24/24 04:00 FiO2 Intake & Output 05/23/24 05/24/24 05/24/24 18:59 06:59 18:59 Intake Total 462 590 Output Total 400 250 Balance 62 340 Weight 68 kg Intake: Intake, IV Titration 50 Amount Ertapenem 1 gm In Sodium 50 Chloride 0.9% 50 ml @ 100 mls/hr IVPB Q24H [facility] Rx# :[id number] Oral 462 540 Output: Urine 400 250 Other: Voiding Method External Catheter External Catheter # Voids 1 1 # Bowel Movements 1 - Labs CBC & Chem 7: 05/22/24 05:35 05/24/24 06:09 Labs: Abnormal Lab Results - Last 24 Hours (Table) 05/23/24 05/23/24 05/23/24 Range/Units 09:09 11:14 16:16 Sodium 135 L (137-145) mmol/L BUN 27 H (7-17) mg/dL Creatinine 1.44 H (0.52-1.04) mg/dL Glucose 173 H (74-99) mg/dL POC Glucose (mg/dL) 142 H 155 H (70-110) mg/dL 05/23/24 05/24/24 05/24/24 Range/Units 20:34 05:56 06:09 Sodium 136 L (137-145) mmol/L BUN 27 H (7-17) mg/dL Creatinine 1.35 H (0.52-1.04) mg/dL Glucose 114 H (74-99) mg/dL POC Glucose (mg/dL) 183 H 117 H (70-110) mg/dL
[2024-05-24 12:34] VITALS: RESP 18
--- NOTE | 2024-05-24 13:08 | P.PN ---
Subjective Progress Note Date: 05/24/24 This is a 69-year-old female patient was brought into the intensive. Receiving thrombolytics for new onset right-sided weakness and left facial droop. The patient is not have dementia. She is known to have diabetes mellitus with chronic kidney disease. She is also known to have hypertension hyperlipidemia. She has been having episodes of falls and earlier this morning, the patient was noted to have right-sided weakness. CT scan of the head showed mild ventriculomegaly and cerebral atrophy. Chronic small vessel ischemic changes. CTA of the neck showed 65% proximal right ICA and 50% proximal left ICA and the carotid Doppler showed no significant hemodynamically stenosis of the carotids. CTA of the head and neck showed no large vessel intracranial arterial occlusion. Initial NIH score was 7. The patient was given TNK and following that she was admitted to the intensive care unit. Motor function in the right upper extremity is adequate. There is some ongoing weakness in the right lower extremity. She is awake alert and communicating. Family at the bedside. No vision changes. No headaches. No seizure activity. She has been found to have UTI and currently the patient is on IV Rocephin. Afebrile and hemodynamically stable. Normal coagulation profile. Creatinine is at 1.4 consistent with chronic kidney disease with a GFR of 32. Hemoglobin is at 12.8. On 05/20/2024, the patient is being seen for a follow-up. The patient is status post TNK for an acute CVA. She remains awake and alert. No headaches. No altered mentation. Significant weakness in the right lower extremity. Motor function is improved in the right upper extremity which is estimated to be around 4 out of 5. No significant facial asymmetry. Able to swallow. A follow-up CAT scan of the brain was done today and it shows no evidence of any bleeds. There is moderate patchy burden of chronic small vessel ischemic disease along with hypodensity along the left basal ganglia may suggest an acute/subacute infarct. There is also abnormalities in the left corpus callosum. Hemodynamically stable. No significant hypotension. The white cell count of 9.7, hemoglobin 12.3, platelet count is 219. Creatinine is 1.3 with a BUN of 21. LDL cholesterol is 66. HbA1c was at 5.9. On 05/21/2024, the patient is being seen for a follow-up. Neurologic status is essentially unchanged. No new onset neurological deficits. Continues to have weakness in the right lower extremity. Able to swallow. Able to tolerate diet. Echocardiogram was also completed and the patient was found to have normal LV, m oderate LVH, moderate dilatation of both atria, mild mitral tricuspid regurgitation, saline contrast suggestive of possible PFO. MRI of the brain was also completed and the patient was noted to have an acute/subacute ischemia of the posterior aspect of the left caudate nucleus and left splenium corpus callosum. Hemodynamically stable. No fever. The patient is currently on room air oxygen with a pulse ox of 98%. Cardiac rhythm is sinus. WBC count of 10.4, hemoglobin 11.5 and a platelet count of 223. BUN is 18 with a creatinine of 1.2 and a sodium level is at 139. Currently on aspirin and Plavix was also added. At the same time, the patient was found to have a Klebsiella pneumonia ESBL producing urinary tract infection and the patient is currently on IV Invanz. 05/22/2024, patient is being seen for a follow-up. Neurologically, some modest improvement in the right lower extremity motor function. Still unable to raise her leg against gravity. Hemodynamically stable. Still on a cardiac rhythm that is sinus. DANYA was done. There is no evidence of ASD or PFO. There is degenerative mitral valve annular calcification. There is mild mitral stenosis and moderate bilateral atrial dilatation and normal LV function. No evidence of any intracardiac thrombus. The patient remains on a combination of aspirin and Plavix. Remains on IV Invanz for a ESBL producing urine tract infection. I will discuss today 0.1, hemoglobin 11.8 and a platelet count of 248. BUN is 21 with a creatinine of 1.47 and sodium levels at 139 with a potassium level of 4.9. 05/23/2024, the patient is neurologically unchanged. Continues to have weakness in the right lower extremity. No other specific complaints otherwise for now. No headaches. No new onset neurological deficits. Remains on aspirin and Plavix. Cardiac rhythm remains sinus. The patient will need a midline for IV Invanz treatment. The patient has a ESBL producing Klebsiella urinary tract infection. The patient is afebrile. DANYA was done. No evidence of any ASD or PFO. No other intracardiac thrombus. 05/24/2024, resting comfortably in bed and neurologically unchanged. Continues to have weakness in the right lower extremity. No new onset neurological deficits. Currently on aspirin and Plavix. Currently on IV Invanz for a underlying ESBL producing urine tract infection with Klebsiella. Hemodynamically stable. BUN 27 with a creatinine of 1.3. Sodium levels at 136. Afebrile. No headaches. She remains on room air oxygen. No other significant events otherwise for now. Objective - Vital Signs Vital signs: Vital Signs Temp 98.4 F 05/24/24 09:32 Pulse 76 05/24/24 12:31 Resp 18 05/24/24 12:31 BP 175/75 05/24/24 12:31 Pulse Ox 96 05/24/24 12:31 FiO2 Intake & Output 05/23/24 05/24/24 05/24/24 18:59 06:59 18:59 Intake Total 462 590 Output Total 400 250 Balance 62 340 Weight 68 kg Intake: Intake, IV Titration 50 Amount Ertapenem 1 gm In Sodium 50 Chloride 0.9% 50 ml @ 100 mls/hr IVPB Q24H [facility] Rx# :[id number] Oral 462 540 Output: Urine 400 250 Other: Voiding Method External Catheter External Catheter External Catheter # Voids 1 1 # Bowel Movements 1 - Exam General: Lying in bed and is not in acute distress. Patient has a BMI of 34.7. Currently on room air oxygen. Head exam was generally normal. There was no scleral icterus or corneal arcus. Mucous membranes were moist. Neck was supple and without jugular venous distension, thyromegaly, or carotid bruits. Carotids were easily palpable bilaterally. There was no adenopathy. Lungs were clear to auscultation and percussion, and with normal diaphragmatic excursion. No wheezes or rales were noted. Cardiac exam revealed the PMI to be normally situated and sized. The rhythm was regular and no extrasystoles were noted during several minutes of auscultation. The first and second heart sounds were normal and physiologic splitting of the second heart sound was noted. There were no murmurs, rubs, clicks, or gallops. Abdominal exam revealed normal bowel sounds. The abdomen was soft, non-tender, and without masses, organomegaly, or appreciable enlargement of the abdominal aorta. Examination of the extremities revealed easily palpable radial, femoral and pedal pulses. There was no cyanosis, clubbing or edema. Examination of the skin revealed no evidence of significant rashes, suspicious appearing nevi or other concerning lesions. Neurologic examination is limited since patient has underlying dementia. Patient is awake alert oriented to self. She is following simple commands. No aphasia from limited language The pupils are round about 4 mm and reactive to light. Visual gerard are full to confrontation. Extraocular movements intact no nystagmus. Normal facial sensation to touch. Patient does have mild left lower facial droop. No dysarthria Tongue is midline moves [id number] with any difficulty Motor: Right upper extremity right arm extension patient has about a 3 right hand scrapper is 3-4. Patient does have her right upper extremity drift. Left arm flexion is about a 4 -. Right lower extremity is 0-1. Left upper lower extremity is 5 out of 5. Sensation: She could not tell me if it feels normal to touch but it seems that she had normal painful stimuli bilaterally. Reflexes 2 positive throughout except for the left lower extremity is a 1 positive. - Labs CBC & Chem 7: 05/22/24 05:35 05/24/24 06:09 Labs: Abnormal Lab Results - Last 24 Hours (Table) 05/23/24 05/23/24 05/24/24 Range/Units 16:16 20:34 05:56 Sodium (137-145) mmol/L BUN (7-17) mg/dL Creatinine (0.52-1.04) mg/dL Glucose (74-99) mg/dL POC Glucose (mg/dL) 155 H 183 H 117 H (70-110) mg/dL 05/24/24 05/24/24 Range/Units 06:09 11:20 Sodium 136 L (137-145) mmol/L BUN 27 H (7-17) mg/dL Creatinine 1.35 H (0.52-1.04) mg/dL Glucose 114 H (74-99) mg/dL POC Glucose (mg/dL) 160 H (70-110) mg/dL Assessment and Plan Plan: Acute CVA with right-sided weakness and left facial droop, status post TNK treatment. Initial NIH score was 7. CT scan of the brain showed cerebral atrophy and CT angiogram of the brain showed no intracranial vascular abnormalities and the patient has bilateral carotid artery disease, 65% on the right ICA and 50% of the left. Follow-up CAT scan of the brain showed no acute hemorrhage. Changes in the left corpus callosum and basal ganglia indicating acute/subacute infarct. Neurologically unchanged compared to yesterday. The patient is currently on a combination of aspirin and Plavix. DANYA showed no evidence of any ASD, VSD or PFO. Preserved LV function. No evidence of any intracardiac thrombus. MRI of the brain showed a subacute CVA of the posterior aspect of the left caudate nucleus and left splenium corpus callosum. The patient remains on a combination of aspirin and Plavix. Neurologically unchanged Bilateral carotid artery disease, vascular surgery is on the case, likely nons urgical Dementia Diabetes mellitus type 2 Chronic kidney disease Hypothyroidism Hypertension UTI, secondary to Klebsiella pneumonia, ESBL producing Plan Monitor neurological functions, essentially unchanged over the past 48 hours. Continues to have right lower extremity weakness. The patient is being considered to discharge to rehab at [facility]. Clinically stable Continue aspirin and Plavix MRI of the brain was completed consistent with CVA/subacute involving the posterior aspect of the left caudate nucleus and left splenium corpus callosum. Neurology consultation is appreciated DANYA was noted Cardiac rhythm is sinus desk monitor Vascular consultation Continue IV Invanz to complete a 7-day course Obtain a midline No active pulmonary critical care issues and will sign off the case.
--- NOTE | 2024-05-24 16:23 | P.PN ---
Subjective Progress Note Date: 05/23/24 Principal diagnosis: Reason for follow-up is ESBL Klebsiella UTI Patient is a 69-year-old female with a past medical history significant for diabetes mellitus hypertension renal disease and dementia has been brought to the hospital for evaluation of fall weakness mental status changes he did have elevated white count positive UA concerning for symptomatic UTI urine culture positive for MDRO ESBL Klebsiella prompted this consultation. On today's evaluation that is 05/23/2024, the patient continues to be afebrile the patient is more awake and alert she is breathing comfortably on room air no chest pain shortness of breath or cough no vomiting or any diarrhea. Patient did have a creatinine 1.44 no CBC was done today Objective - Vital Signs Vital signs: Vital Signs Temp 98.2 F 05/23/24 08:27 Pulse 68 05/23/24 12:25 Resp 16 05/23/24 12:25 BP 169/72 05/23/24 12:25 Pulse Ox 98 05/23/24 12:25 FiO2 Intake & Output 05/22/24 05/23/24 05/23/24 18:59 06:59 18:59 Intake Total 168 590 240 Output Total 150 Balance 168 590 90 Weight 70.5 kg Intake: IV 50 Intake, IV Titration 50 Amount Ertapenem 1 gm In Sodium 50 Chloride 0.9% 50 ml @ 100 mls/hr IVPB Q24H [facility] Rx# :[id number] Oral 118 540 240 Output: Urine 150 Other: Voiding Method External Catheter External Catheter # Voids 200 1 # Bowel Movements 1 1 - Exam GENERAL DESCRIPTION: An elderly female lying in bed in no distress RESPIRATORY SYSTEM: Unlabored breathing , decreased breath sounds at bases HEART: S1 S2 regular rate and rhythm , ABDOMEN: Soft , no tenderness EXTREMITIES: No edema feet - Labs CBC & Chem 7: 05/22/24 05:35 05/24/24 06:09 Labs: Abnormal Lab Results - Last 24 Hours (Table) 05/22/24 05/22/24 05/23/24 Range/Units 16:20 20:21 05:58 Sodium (137-145) mmol/L BUN (7-17) mg/dL Creatinine (0.52-1.04) mg/dL Glucose (74-99) mg/dL POC Glucose (mg/dL) 186 H 207 H 116 H (70-110) mg/dL 05/23/24 05/23/24 Range/Units 09:09 11:14 Sodium 135 L (137-145) mmol/L BUN 27 H (7-17) mg/dL Creatinine 1.44 H (0.52-1.04) mg/dL Glucose 173 H (74-99) mg/dL POC Glucose (mg/dL) 142 H (70-110) mg/dL Assessment and Plan (1) Infection with ESBL Klebsiella oxytoca Current Visit: Yes Status: Acute Code(s): A49.8 - OTHER BACTERIAL INFECTIONS OF UNSPECIFIED SITE; Z16.12 - EXTENDED SPECTRUM BETA LACTAMASE (ESBL) RESISTANCE SNOMED Code(s): 1484407435 (2) Urinary tract infection Current Visit: Yes Status: Acute Code(s): N39.0 - URINARY TRACT INFECTION, SITE NOT SPECIFIED SNOMED Code(s): 64111566 Plan: 1patient presented hospital with weakness fall did have some mental status changes elevated white count positive UA concerning for symptomatic UTI contributing to her symptoms urine positive for ESBL Klebsiella. 2patient did have ultrasound of the kidney bladder t concern for early hydronephrosis on the left side 3patient is afebrile white count normalized, seem to have responded to intravenous, to continue and monitor clinical course closely Dictation was produced using [employer] dictation software. please excuse any grammatical, word or spelling errors. Time with Patient: Less than 30
--- NOTE | 2024-05-24 16:24 | P.PN ---
Subjective Progress Note Date: 05/24/24 Principal diagnosis: Reason for follow-up is ESBL Klebsiella UTI Patient is a 69-year-old female with a past medical history significant for diabetes mellitus hypertension renal disease and dementia has been brought to the hospital for evaluation of fall weakness mental status changes he did have elevated white count positive UA concerning for symptomatic UTI urine culture positive for MDRO ESBL Klebsiella prompted this consultation. On today's evaluation that is 05/24/2024, Patient is afebrile patient is currently on room air and breathing comfortably in no distress she was sleepy but is arousable and mention feeling better no new symptom no vomiting diarrhea has been reported. Patient did have a creatinine 1.35 Objective - Vital Signs Vital signs: Vital Signs Temp 98.4 F 05/24/24 09:32 Pulse 76 05/24/24 12:31 Resp 18 05/24/24 12:31 BP 175/75 05/24/24 12:31 Pulse Ox 96 05/24/24 12:31 FiO2 Intake & Output 05/23/24 05/24/24 05/24/24 18:59 06:59 18:59 Intake Total 462 590 Output Total 400 250 Balance 62 340 Weight 68 kg Intake: Intake, IV Titration 50 Amount Ertapenem 1 gm In Sodium 50 Chloride 0.9% 50 ml @ 100 mls/hr IVPB Q24H [facility] Rx# :[id number] Oral 462 540 Output: Urine 400 250 Other: Voiding Method External Catheter External Catheter External Catheter # Voids 1 1 # Bowel Movements 1 - Exam GENERAL DESCRIPTION: An elderly female lying in bed in no distress RESPIRATORY SYSTEM: Unlabored breathing , decreased breath sounds at bases HEART: S1 S2 regular rate and rhythm , ABDOMEN: Soft , no tenderness EXTREMITIES: No edema feet - Labs CBC & Chem 7: 05/22/24 05:35 05/24/24 06:09 Labs: Abnormal Lab Results - Last 24 Hours (Table) 05/23/24 05/24/24 05/24/24 Range/Units 20:34 05:56 06:09 Sodium 136 L (137-145) mmol/L BUN 27 H (7-17) mg/dL Creatinine 1.35 H (0.52-1.04) mg/dL Glucose 114 H (74-99) mg/dL POC Glucose (mg/dL) 183 H 117 H (70-110) mg/dL 05/24/24 Range/Units 11:20 Sodium (137-145) mmol/L BUN (7-17) mg/dL Creatinine (0.52-1.04) mg/dL Glucose (74-99) mg/dL POC Glucose (mg/dL) 160 H (70-110) mg/dL Assessment and Plan (1) Infection with ESBL Klebsiella oxytoca Current Visit: Yes Status: Acute Code(s): A49.8 - OTHER BACTERIAL INFECTIONS OF UNSPECIFIED SITE; Z16.12 - EXTENDED SPECTRUM BETA LACTAMASE (ESBL) RESISTANCE SNOMED Code(s): 8480225243 (2) Urinary tract infection Current Visit: Yes Status: Acute Code(s): N39.0 - URINARY TRACT INFECTION, SITE NOT SPECIFIED SNOMED Code(s): 87288521 Plan: 1patient presented hospital with weakness fall did have some mental status changes elevated white count positive UA concerning for symptomatic UTI cont ributing to her symptoms urine positive for ESBL Klebsiella. 2patient did have ultrasound of the kidney bladder t concern for early hydronephrosis on the left side 3patient is afebrile white count normalized, 4plan is for midline and a 5 to 7-day course of Invanz on discharge Dictation was produced using [employer] dictation software. please excuse any grammatical, word or spelling errors. Time with Patient: Less than 30
[2024-05-24 16:30] LABS: Glucose,Whole Blood 459 mg/dL (70-110)
[2024-05-24 16:43] LABS: Glucose,Whole Blood 200 mg/dL (70-110)
[2024-05-24 20:13] LABS: Glucose,Whole Blood 125 mg/dL (70-110)
[2024-05-25 06:15] LABS: Glucose,Whole Blood 110 mg/dL (70-110)
--- NOTE | 2024-05-25 09:59 | P.PN ---
Subjective Progress Note Date: 05/25/24 Principal diagnosis: Carotid stenosis Patient is seen and examined today as a follow-up. No new focal deficits. No changes through the night. Plan is for discharge on antibiotics for urinary tract infection ESBL Klebsiella with midline placement and discharged on IV antibiotics. Objective - Vital Signs Vital signs: Vital Signs Temp 97.9 F 05/25/24 04:00 Pulse 76 05/25/24 04:00 Resp 18 05/25/24 04:00 BP 155/71 05/25/24 04:00 Pulse Ox 97 05/25/24 04:00 FiO2 Intake & Output 05/24/24 05/25/24 05/25/24 18:59 06:59 18:59 Intake Total 358 Output Total 200 700 Balance 158 -700 Weight 75 kg Intake: Oral 358 Output: Urine 200 700 Other: Voiding Method External Catheter External Catheter # Voids 1 # Bowel Movements 1 1 - Exam General appearance: The patient is alert, oriented, appears in no acute distress. Obese. HET: Head is normocephalic and atraumatic. Pupils are equal and reactive. Neck: Supple. No audible bruit. Heart: Regular. Lungs: Equal expansion, normal respiratory effort. Abdomen: Soft, nontender, nondistended. Extremities: Normal skin color and turgor. Palpable bilateral radial and DP pulses. Neurological: Patient is alert and oriented. Speech is fluent, answers questions appropriately. Right sided upper and lower extremity weakness, lower extremity greater than upper. - Labs CBC & Chem 7: 05/22/24 05:35 05/24/24 06:09 Labs: Abnormal Lab Results - Last 24 Hours (Table) 05/24/24 05/24/24 05/24/24 Range/Units 11:20 16:28 16:42 POC Glucose (mg/dL) 160 H 459 H 200 H (70-110) mg/dL 05/24/24 Range/Units 20:08 POC Glucose (mg/dL) 125 H (70-110) mg/dL Assessment and Plan Assessment: 1. Symptomatic left ICA stenosis, greater than 50% 2. Acute/subacute ischemic stroke within the posterior aspect of left caudate nucleus body and left splenium of the corpus callosum with symptoms of right sided weakness 3. Possible PFO reported on echocardiogram 4. Recent fall 5. Urinary tract infection, ESBL Klebsiella on IV antibiotics 6. Hypertension 7. Dementia Plan: Patient is currently not interested in carotid surgical intervention and as far as timing will need to wait for urinary tract infection treatment and resolution before carotid intervention. Recommend patient follow-up with vascular surgery in 1 week to further discuss surgical options. Patient is cleared from vascular surgery for discharge. The impression and plan of care has been dictated as directed. Dr. Welsh I performed a history and examination of this patient, discussed the same with the dictator. I agree with the dictator's note ,documented as a scribe. Any additional findings or plans will be noted.
[2024-05-25 11:21] LABS: Glucose,Whole Blood 143 mg/dL (70-110)
--- NOTE | 2024-05-25 13:42 | P.PN ---
Subjective HISTORY OF PRESENT ILLNESS: This is a 69-year-old female with no previous cardiac history. She has a past medical history of dementia, developmentally delayed, hypertension, hypothyroidism. We have been asked to evaluate the patient for DANYA and event monitor. Patient presented to the hospital due to right sided weakness and facial droop and has been diagnosed with an acute ischemic stroke status post IV TNK. There was also concern for possible PFO on echocardiogram. Patient was found to have rites ICA stenosis of 65% and left at 50% on CT angiogram he. Vascular surgery is on consult and planning for left TCAR or possible carotid en darterectomy on Saturday. Blood pressure 179/77, heart rate 77, pulse ox 100% on room air. Patient has been started on aspirin, Lipitor, Plavix. Patient is also on IV antibiotics for UTI. -EKG: Sinus rhythm with no acute ST-T wave changes. -Laboratory studies: CBC normal. BUN 18 and creatinine 1.29. Triglycerides 94, cholesterol 132, LDL 66, HDL 47 -Home cardiac medications: Lisinopril 20 mg daily. -Echocardiogram reveals EF 55 to 60% with moderate concentric LVH. Heavy annular calcification and thickening of the mitral valve leaflets with some calcific mild stenosis. Aortic valve reveals some sclerosis no restriction. Mild mitral and tricuspid regurgitation. No pericardial effusion. Saline contrast suggest possible PFO. 05/22 Patient is scheduled for DANYA today with Dr. Kat to evaluate mitral valve. Blood pressure readings remain elevated at 169/70, heart rate 76, pulse ox 99% on room air. Repeat blood work reveals potassium 4.9, BUN 21 creatinine 1.47. 05/23 Yesterday, patient underwent a DANYA which revealed: 1. No evidence of thrombus in LA or PEDRO. 2. No evidence of ASD or PFO on color flow or bubble study. No evidence of IV septum aneurysm 3. Degenerative mitral valve annular calcification with heavy calcification of posterior mitral leaflet base. No evidence of rheumatic mitral valve disease 4. Mild degenerative mitral stenosis mean gradient 2.5 mmHg at heart rate 70 bpm. MVA by planimetry 1.5 cm 5. Moderate biatrial dilatation 6. Normal LV size and systolic function Discussed results of DANYA with the patient and also discussed recommendations for insertion of a loop recorder to assess for possibility of atrial fibrillation. Blood pressure 159/70, heart rate 77, pulse ox 95% on room air. Carotid surgery is planned but a date does not seem to have been determined. Patient's daughter will be in to visit her this afternoon and we will plan to discuss the loop recorder with patient's daughter at that time. 05/25/2024 Patient examined this morning at bedside. Patient currently denies chest pain or pressure. She denies shortness of breath. Vital signs are stable. Telemetry reveals sinus mechanism. PHYSICAL EXAM: VITAL SIGNS: Reviewed. GENERAL: Well-developed in no acute distress. NECK: Supple. No JVD or thyromegaly LUNGS: Respirations even and unlabored. Lungs essentially clear to auscultation bilaterally. HEART: Regular rate and rhythm. S1 and S2 heard. EXTREMITIES: Normal range of motion. No clubbing or cyanosis. Peripheral pulses intact. No lower extremity edema ASSESSMENT: Urinary tract infection positive for ESBL Klebsiella Symptomatic left ICA stenosis PFO, ruled out per DANYA Mild mitral stenosis Dementia Developmentally delayed Hypertension Hypothyroidism PLAN: Event monitor ordered by internal medicine. However may not be very reliable due to patient's developmental delay and inability to operate event monitor equipment and charge device. Consider loop recorder insertion on an outpatient basis Patient may be discharged today from a cardiac standpoint Patient to follow-up postdischarge in the office Nurse practitioner note has been reviewed by physician. Signing provider agrees with the documented findings, assessment, and plan of care documented by SENIOR MECHANICAL DESIGN ENGINEER as a scribe. Objective - Vital Signs Vital signs: Vital Signs Temp 98.0 F 05/25/24 09:43 Pulse 68 05/25/24 09:44 Resp 18 05/25/24 09:43 BP 187/70 05/25/24 09:43 Pulse Ox 100 05/25/24 09:43 FiO2 Intake & Output 05/24/24 05/25/24 05/25/24 18:59 06:59 18:59 Intake Total 358 180 Output Total 200 700 Balance 158 -700 180 Weight 75 kg Intake: Oral 358 180 Output: Urine 200 700 Other: Voiding Method External Catheter External Catheter External Catheter # Voids 1 # Bowel Movements 1 1 - Labs CBC & Chem 7: 05/22/24 05:35 05/24/24 06:09 Labs: Abnormal Lab Results - Last 24 Hours (Table) 05/24/24 05/24/24 05/24/24 Range/Units 11:20 16:28 16:42 POC Glucose (mg/dL) 160 H 459 H 200 H (70-110) mg/dL 05/24/24 Range/Units 20:08 POC Glucose (mg/dL) 125 H (70-110) mg/dL
[2024-05-25 13:43] VITALS: BMI 26.6
--- NOTE | 2024-05-25 14:04 | P.DS ---
Providers Date of admission: 05/18/24 16:02 Expected date of discharge: 05/25/24 Attending physician: Tamara Gonzalez MD Consults: 05/19/24 11:08 Consult Physician Stat Consulting Provider: Charles Contreras Consult Reason/Comments: New onset right sided weakness and left sided facial droop Do you want consulting provider notified?: Yes 05/19/24 12:01 Consult Physician Routine Consulting Provider: Cristofer Ibarra Consult Reason/Comments: carotid stenosis with code stroke Do you want consulting provider notified?: Yes 05/19/24 15:12 Consult Physician Routine Consulting Provider: Carlos Malagon Consult Reason/Comments: stroke, s/p TNK Do you want consulting provider notified?: Yes 05/20/24 13:58 Consult Physician Routine Consulting Provider: Morales Biswas Consult Reason/Comments: DANYA/Event motinor/stroke Do you want consulting provider notified?: Yes 05/20/24 23:26 Consult Physician Routine Consulting Provider: Vidya Barrett Consult Reason/Comments: Klebsiella ESBL MRDO UTI Do you want consulting provider notified?: Yes, Notify in am Primary care physician: Chaz Amador MD Hospital Course: Discharge diagnoses; # Acute embolic stroke involving left caudate nucleus and left splenium of the corpus callosum #Right ICA stenosis #Debility #Complicated urinary tract infection (gram-negative negative bacilli) #Diabetes mellitus #Dementia #Hypothyroidism #Chronic kidney disease stage IIIb Hospital course; 69-year-old female with a past medical history significant for diabetes mellitus, thyroid disorder. She presented to the emergency department after falling at home. She states that she has frequent falls, with the most recent one being last night which brought her to the emergency department today. She states that she was in her apartment and attempting to clean her apartment, at that time she states that she lost her footing and fell on her left side. She states that she did not hit her head, however she does attest to having felt some dizziness prior to falling. She was found on the ground by her son-in-law, and she is unsure of how long she was on the ground for but believes it to be at least 2 hours stating that she was too weak to get herself up. She has no acute pain anywhere on her body, however notes some generalized soreness in her lower extremities and her right shoulder. During her second at the hospital, we were contacted by nursing staff due to sudden onset of weakness on the patient's right side, worse in the lower extremity. Patient was evaluated was noted to have decerebrate posturing of her right arm, worsening motor function of the right upper extremity, with drifting noted when extending her arm, and no motor function of the right lower extremity as well as left-sided facial droop. A culture was called at that time. Patient was administered TNK and initiated on aspirin, Plavix and Lipitor. Patient was moved to the ICU at the time for close monitoring. She remained in the ICU for 1.5-2 days before being moved down to the cardiac stepdown floor. Her condition showed slight improvement in terms of her motor function, and she remained receiving IV antibiotics. An event monitor was ordered, however due to functional capacity, cardiology feels that may be beneficial for the patient to have a loop recorder placed outpatient. Additionally, after discussion with infectious disease a midline was placed to complete a course of IV antibiotics upon discharge. She will follow-up with vascular surgery for possible surgical intervention regarding carotid arteries. PHYSICAL EXAMINATION: GENERAL: The patient is alert and oriented x3, with circumstantial speech with confabulation HEENT: Pupils are round and equally reacting to light. EOMI. No scleral icterus. No conjunctival pallor. CARDIOVASCULAR: S1 and S2 present. No murmurs, rubs, or gallops. PULMONARY: Chest is clear to auscultation, no wheezing or crackles. ABDOMEN: Soft, nontender, nondistended, normoactive bowel sounds. No palpable organomegaly. MUSCULOSKELETAL: No joint swelling or deformity. EXTREMITIES: No cyanosis, clubbing, or pedal edema. NEUROLOGICAL: Some mobility of the right lower extremity restored, able to wiggle her toes and move her foot at the ankle and plantar and dorsi flexion; drift with extension of right upper extremity; right upper extremity noted to be into 3 repositioning; provider enrollment specialist strength on the right side improved as compared to yesterday; left sided facial droop and tongue deviation SKIN: No rashes. Dictation was produced using [employer]eds[employer] dictation software. please excuse any grammatical, word or spelling errors. A total of 36 minutes of time were spent preparing this complex discharge summary. Patient was discharged on 05/25/2024 at 1357. I have seen and evaluated the patient today. Discussed with the resident and agree with the residents finding and plan as documented in the resident's note. Changes highlighted in blue font. Patient Condition at Discharge: Fair Plan - Discharge Summary Discharge Rx Participant: No New Discharge Prescriptions: New Aspirin 81 mg PO DAILY 14 Days tab Ertapenem [INVanz] 1 gm IVPB Q24H 5 Days each Atorvastatin [Lipitor] 40 mg PO DAILY tab Clopidogrel [Plavix] 75 mg PO DAILY tab amLODIPine [Norvasc] 5 mg PO DAILY tab Continue metFORMIN HCL [Glucophage] 500 mg PO BID Triamcinolone 0.1% Ointment [Kenalog 0.1% Ointment] 1 applic TOPICAL TID Mirtazapine [Remeron] 15 mg PO HS Levothyroxine Sodium [Synthroid] 25 mcg PO DAILY Donepezil [Aricept] 10 mg PO HS ondansetron HCL [Zofran] 8 mg PO TID PRN PRN Reason: Nausea And Vomiting ARIPiprazole [Abilify] 2 mg PO DAILY Ergocalciferol (Vitamin D2) [Drisdol (50,000 Iu)] 1,250 mcg PO Q7D Discontinued lisinopriL [Zestril] 20 mg PO DAILY Discharge Medication List ARIPiprazole [Abilify] 2 mg PO DAILY 05/18/24 [History] Donepezil [Aricept] 10 mg PO HS 05/18/24 [History] Ergocalciferol (Vitamin D2) [Drisdol (50,000 Iu)] 1,250 mcg PO Q7D 05/18/24 [History] Levothyroxine Sodium [Synthroid] 25 mcg PO DAILY 05/18/24 [History] Mirtazapine [Remeron] 15 mg PO HS 05/18/24 [History] Triamcinolone 0.1% Ointment [Kenalog 0.1% Ointment] 1 applic TOPICAL TID 05/18/24 [History] metFORMIN HCL [Glucophage] 500 mg PO BID 05/18/24 [History] ondansetron HCL [Zofran] 8 mg PO TID PRN 05/18/24 [History] Aspirin 81 mg PO DAILY 14 Days tab 05/25/24 [Rx] Atorvastatin [Lipitor] 40 mg PO DAILY tab 05/25/24 [Rx] Clopidogrel [Plavix] 75 mg PO DAILY tab 05/25/24 [Rx] Ertapenem [INVanz] 1 gm IVPB Q24H 5 Days each 05/25/24 [Rx] amLODIPine [Norvasc] 5 mg PO DAILY tab 05/25/24 [Rx] Follow up Appointment(s)/Referral(s): Chaz Aamdor MD [Primary Care Provider] - 1-2 days Ganesh Kat MD [Medical Doctor] - 1 Week Cristina Chavez DO [STAFF PHYSICIAN] - [facility] - 1 Week Activity/Diet/Wound Care/Special Instructions: Upon discharge follow up with Vascular surgery to discuss possible surgical interventions regarding carotid arteries. Follow up with cardiology following discharge to discuss the possibility of having a loop recorder placed Follow up with your primary care physician Complete course of IV antibiotics utilizing the placed midline for 5 days following discharge on 05/25/24
[2024-05-25 15:12] VITALS: BP 175/72; PULSE 79; TEMP 98.7
[2024-05-25 16:25] LABS: Glucose,Whole Blood 154 mg/dL (70-110)
--- NOTE | 2024-05-26 13:07 | P.PN ---
Subjective Progress Note Date: 05/25/24 Principal diagnosis: Reason for follow-up is ESBL Klebsiella UTI Patient is a 69-year-old female with a past medical history significant for diabetes mellitus hypertension renal disease and dementia has been brought to the hospital for evaluation of fall weakness mental status changes he did have elevated white count positive UA concerning for symptomatic UTI urine culture positive for MDRO ESBL Klebsiella prompted this consultation. On today's evaluation that is 05/25/2024, patient has been afebrile, patient is breathing comfortably and is currently on room air, patient denies having any significant cough no chest pain, patient denies nausea vomiting or diarrhea and no abdominal pain. No new lab has been obtained today Objective - Vital Signs Vital signs: Vital Signs Temp 98.0 F 05/25/24 09:43 Pulse 63 05/25/24 13:51 Resp 18 05/25/24 11:41 BP 189/74 05/25/24 11:41 Pulse Ox 100 05/25/24 11:41 FiO2 Intake & Output 05/24/24 05/25/24 05/25/24 18:59 06:59 18:59 Intake Total 358 417 Output Total 200 700 Balance 158 -700 417 Weight 75 kg 75 kg Intake: Oral 358 417 Output: Urine 200 700 Other: Voiding Method External Catheter External Catheter External Catheter # Voids 1 # Bowel Movements 1 1 - Exam GENERAL DESCRIPTION: An elderly female lying in bed in no distress RESPIRATORY SYSTEM: Unlabored breathing , decreased breath sounds at bases HEART: S1 S2 regular rate and rhythm , ABDOMEN: Soft , no tenderness EXTREMITIES: No edema feet - Labs CBC & Chem 7: 05/22/24 05:35 05/24/24 06:09 Labs: Abnormal Lab Results - Last 24 Hours (Table) 05/24/24 05/24/24 05/24/24 Range/Units 16:28 16:42 20:08 POC Glucose (mg/dL) 459 H 200 H 125 H (70-110) mg/dL 05/25/24 Range/Units 11:20 POC Glucose (mg/dL) 143 H (70-110) mg/dL Assessment and Plan (1) Infection with ESBL Klebsiella oxytoca Status: Acute Code(s): A49.8 - OTHER BACTERIAL INFECTIONS OF UNSPECIFIED SITE; Z16.12 - EXTENDED SPECTRUM BETA LACTAMASE (ESBL) RESISTANCE SNOMED Code(s): 2631930632 (2) Urinary tract infection Status: Acute Code(s): N39.0 - URINARY TRACT INFECTION, SITE NOT SPECIFIED SNOMED Code(s): 18846324 Plan: 1patient presented hospital with weakness fall did have some mental status changes elevated white count positive UA concerning for symptomatic UTI contributing to her symptoms urine positive for ESBL Klebsiella. 2patient did have ultrasound of the kidney bladder t concern for early hydronephrosis on the left side 3patient is afebrile white count normalized, she did have a midline placement, will continue with the Invanz on discharge to finish her course of therapy and close outpatient follow-up Dictation was produced using [employer] dictation software. please excuse any grammatical, word or spelling errors. Time with Patient: Less than 30
== END 2024-05-25 17:50 | DRG 689 ==
LOC: EC 12:16 → OBSVTOIN 16:02 → 1SOBS 16:02 → EEVIPCON 16:02 → 6NMEDSUR 16:36 → 1SOBS 05-19 04:24 → 2SICU 05-19 12:02 → 3SCARD 05-20 20:28
PROVIDERS: ADMIT Internal Medicine; ATTEND Internal Medicine
PROC: 3E03317 Introduction of Other Thrombolytic into Peripheral Vein, Percutaneous Approach (ICD-10-PCS; 2024-05-18)
PROC: B246ZZ4 Ultrasonography of Right and Left Heart, Transesophageal (ICD-10-PCS; principal; 2024-05-22 07:30)
PROC: 05HF33Z Insertion of Infusion Device into Left Cephalic Vein, Percutaneous Approach (ICD-10-PCS; 2024-05-25)
DX: N39.0 Urinary tract infection, site not specified (principal); I63.40 Cerebral infarction due to embolism of unspecified cerebral artery; G81.91 Hemiplegia, unspecified affecting right dominant side; F03.90 Unspecified dementia, unspecified severity, without behavioral disturbance, psychotic disturbance, mood disturbance, and anxiety; E11.22 Type 2 diabetes mellitus with diabetic chronic kidney disease; E03.9 Hypothyroidism, unspecified; I12.9 Hypertensive chronic kidney disease with stage 1 through stage 4 chronic kidney disease, or unspecified chronic kidney disease; N18.32 Chronic kidney disease, stage 3b; I08.1 Rheumatic disorders of both mitral and tricuspid valves; G93.89 Other specified disorders of brain; Z16.12 Extended spectrum beta lactamase (ESBL) resistance; Z16.19 Resistance to other specified beta lactam antibiotics; Z16.24 Resistance to multiple antibiotics; R55 Syncope and collapse; K14.8 Other diseases of tongue; Z79.890 Hormone replacement therapy; E78.5 Hyperlipidemia, unspecified; R29.707 NIHSS score 7; R29.810 Facial weakness; W01.0XXA Fall on same level from slipping, tripping and stumbling without subsequent striking against object, initial encounter; R29.6 Repeated falls; Z91.81 History of falling; F88 Other disorders of psychological development; I65.23 Occlusion and stenosis of bilateral carotid arteries; R29.705 NIHSS score 5; Y92.009 Unspecified place in unspecified non-institutional (private) residence as the place of occurrence of the external cause; Z79.02 Long term (current) use of antithrombotics/antiplatelets; Z79.82 Long term (current) use of aspirin; Z79.84 Long term (current) use of oral hypoglycemic drugs; Z79.899 Other long term (current) drug therapy; Z86.73 Personal history of transient ischemic attack (TIA), and cerebral infarction without residual deficits; Z87.440 Personal history of urinary (tract) infections; Z96.659 Presence of unspecified artificial knee joint
CPT/HCPCS: 36415; 51702; 70450; 70496; 70498; 70551; 71046; 72125; 72170; 76770; 80048; 80053; 80061; 81001; 82550; 83036; 85025; 85610; 85730; 87077; 87086; 87186; 93005; 93270; 93306; 93312; 93320; 93325; 93880; 93970; 96361; 96374; 96375; 99285

== ENCOUNTER → 2024-07-06 | Outpatient (CLI) | payer OTHER | END | disposition home or self-care (01) | LOC: RADECHMAIN 13:28 | PROVIDERS: ATTEND Internal Medicine Hospice and Palliative Medicine | DX: Z53.9 Procedure and treatment not carried out, unspecified reason (principal) | CPT/HCPCS: 93225 ==

== ENCOUNTER → 2024-10-22 | Outpatient (CLI) | payer OTHER ==
--- NOTE | 2024-10-22 11:53 | BD ---
EXAMINATION TYPE: Axial Bone Density DATE OF EXAM: 10/22/2024 CLINICAL HISTORY: 69 years old Female. ICD-10 CODE: Z13.820 OSTEO SCR , Additional History: Height: 62.5 Weight: 250.7 FRAX RISK QUESTIONS: Alcohol (3 or more units per day): no Family History (Parent hip fracture): yes Glucocorticoids (More than 3mos): no (Ex: prednisone, prednisolone, methylprednisolone, dexamethasone, and hydrocortisone). History of Fracture in Adulthood: no Secondary Osteoporosis: 1. Type 1 Diabetes: no 2. Hyperthyroidism: no 3. Menopause before 45: yes 4. Malnutrition: no 5. Chronic liver disease: no Rheumatoid Arthritis: no Current Tobacco Use: no RISK FACTORS HISTORY OF: Surgery to Spine/Hip(right/left)/Wrist (right/left): no EXAM MEASUREMENTS: Bone mineral densitometry was performed using the [employer]. Bone mineral density as measured about the Lumbar spine is: ----- L1-L4(G/cm2): 1.335 T Score Values are as follows: ----- L1: 0.7 ----- L2: 1.4 ----- L3: 0.9 ----- L4: 1.9 ----- L1-L4: 1.3 Z Score Values are as follows: ----- L1: 1.2 ----- L2: 1.8 ----- L3: 1.4 ----- L4: 2.4 ----- L1-L4: 1.8 Bone mineral density has: decreased -1.9 % since study of: 02.19.2022 Bone mineral density about the R hip (g/cm2): 0.899 Bone mineral density about the L hip (g/cm2): 0.966 T Score values are as follows: -----R Neck: -2.8 -----L Neck: -2.3 -----R Total: -0.9 -----L Total: -0.3 Z Score values are as follows: -----R Neck: -1.9 -----L Neck: -1.4 -----R Total: -0.3 -----L Total: 0.3 Bone mineral density has: decreased -2.5 % since study of: 02.19.2022 FRAX%s: The graph provided illustrates a 24.2% chance for a major osteoporotic fx and a 8.4% chance f or the hips probability for fx in 10 years time. IMPRESSION: Osteoporosis (T Score less than -2.5). There is increased fracture risk and therapy is usually indicated based on age. Re-Screen 1-2 years. NOTE: T-SCORE=SD OF THE YOUNG ADULT MEAN. [facility], , 10/22/2024 11:51 AM
== END | disposition home or self-care (01) ==
LOC: RADBDWWP 11:10
PROVIDERS: ATTEND Internal Medicine Hospice and Palliative Medicine
DX: Z13.820 Encounter for screening for osteoporosis (principal); M81.0 Age-related osteoporosis without current pathological fracture; M85.89 Other specified disorders of bone density and structure, multiple sites; Z78.0 Asymptomatic menopausal state
CPT/HCPCS: 77080

== ENCOUNTER → 2024-10-29 | Outpatient (CLI) | payer OTHER ==
--- NOTE | 2024-10-29 12:05 | US ---
EXAMINATION TYPE: US carotid duplex BILAT DATE OF EXAM: 10/29/2024 COMPARISON: NONE CLINICAL INDICATION: Female, 69 years old with history of B34.8 OTHER VIRAL INFECTIONS UNSPECIFIED SI TE; stenosis Additional History: .... TECHNIQUE: Grayscale, color Doppler and spectral Doppler evaluation of the bilateral carotid systems and vertebral arteries. Indirect Doppler criteria was utilized. FINDINGS: EXAM MEASUREMENTS: RIGHT: Peak Systolic Velocity (PSV) cm/sec ----- Right CCA: 105 ----- Right ICA: 174 ----- Right ECA: 174 ICA/CCA ratio: 1.7 RIGHT: End Diastole cm/sec ----- Right CCA: 12.3 ----- Right ICA: 13.6 ----- Right ECA: 8.15 LEFT: Peak Systolic Velocity (PSV) cm/sec ----- Left CCA: 135 ----- Left ICA: 111 ----- Left ECA: 162 ICA/CCA ratio: 0.8 LEFT: End Diastole cm/sec ----- Left CCA: 11.1 ----- Left ICA: 13.2 ----- Left ECA: 5.06 VERTEBRALS (direction of flow): Right Vertebral: Antegrade Left Vertebral: Antegrade Rhythm: Normal TABULATING CLERK NOTES: No significant stenosis seen Color Doppler imaging shows patency with blood flow throughout the carotid artery. Spectral waveforms are within normal limits. IMPRESSION: Right: No hemodynamically significant stenosis. Left: No hemodynamically significant stenosis. Criteria for Assigning % of Stenosis / Diameter reduction (Estimation based on the indirect measurements of the internal carotid artery velocities (ICA PSV). 1. Normal (no stenosis)=ICA PSV < 180 cm/s: ratio < 2.0: ICA EDV<40 cm/s. 2. Less than 50% stenosis=ICA PSV < 180 cm/s: ratio < 2.0: ICA EDV<40 cm/s. 3. 50 to 69% stenosis=ICA PSV of 180 to 230 cm/s: ration 2.0 ? 4.0: ICA EDV 40-100 cm/s. PSV 125-180 cm/sec and ICA/CCA PSV Ratio ? 2.0 is also consistent with 50-69% stenosis 4. Greater than 70% stenosis to near occlusion= ICA PSV > 230 cm/s: ratio > 4.0: ICA EDV > 100 cm/s. 5. Near occlusion= ICA PSV velocities may be low or undetectable: variable ratio and ICA EDV. 6. Total occlusion=unable to detect flow. [facility], , 10/29/2024 12:02 PM
== END | disposition home or self-care (01) ==
LOC: RADUSWWP 10:39
PROVIDERS: ATTEND Internal Medicine Hospice and Palliative Medicine
DX: I63.231 Cerebral infarction due to unspecified occlusion or stenosis of right carotid arteries (principal); B34.8 Other viral infections of unspecified site
CPT/HCPCS: 93880